=== PATIENT | male | born 1985 | race Caucasian/White ===

== ENCOUNTER 2016-11-15 00:24 | Inpatient (IN) | payer SELFPAY ==
[~2016-11-15] VITALS: Ht 182.8 cm; Wt 196.3 kg
[2016-11-15] VITALS (8 sets, daily range): BP systolic 134–184; BP diastolic 62–89
[~2016-11-15 00:24] MED LIST: ALDACTONE25 MG PO; ALLEGRA-D 24 H1 EACH PO; ALLOPURINOL300 MG PO; AMOXICILLIN500 M2 PO; AMOXICILLIN500 MG PO; AMOXIL500 MG PO; AVPAK AZITHROM250 M1 PO; BP MED; CIPRO500 MG PO; CLARITIN10 MG PO; FLAGYL500 MG PO; FLONASE ALLERG9.9 ML NS; FLONASE0.05 MG/AC NS; HYDROCODONE BIT1 T11 PO; HYDRODIURIL25 MG PO; INDOCIN25 MG PO; INDOCIN50 MG PO; INDOMETHACIN50 MG PO; LISINOPRIL10 MG PO; LISINOPRIL20 MG PO; LISINOPRIL40 MG PO; LOMOTIL 0.025 M1 TAB PO; LOPRESSOR25 MG PO; LOPRESSOR50 MG PO; MUCINEX1200 M1 PO; NAPROSYN500 MG PO; NORCO 5-325 TA1 EACH PO; OMNICEF300 MG PO; PREDNISONE10 MG PO; PROVENTIL0.09 MG/A1 INH; ULTRAM50 MG PO; VIBRAMYCIN100 MG PO; VICODIN 5/500 505 MG PO; VICODIN ES 7501 TAB PO; ZITHROMAX Z PA250 MG PO; ZITHROMAX250 MG PO; ZOFRAN ODT8 MG PO; ZYLOPRIM100 MG PO; ZYRTEC10 M3 PO; ZYRTEC10 MG PO
[2016-11-15 00:44] LABS: BASO # 0.1 10*3/uL (0.0-0.1); BASO % 0.3 % (0.0-1.0); EOS # 0.4 10*3/uL (0.0-0.4); EOS % 2.9 % (1.0-4.0); HEMATOCRIT 36.8 % (42.0-52.0); HEMOGLOBIN 11.9 g/dl (14.0-18.0); IG # 0.2 10*3/uL (0.0-0.1); LYMPH # 2.9 10*3/uL (1.3-4.4); LYMPH % 19.6 % (27.0-41.0); MEAN CORPUSCULAR HGB 28.1 pg (27.0-31.0); MEAN CORPUSCULAR HGB CONC 32.3 g/dl (33.0-37.0); MONO # 1.1 10*3/uL (0.1-1.0); MONO % 7.6 % (3.0-9.0); NEUT # 10.3 10*3/uL (2.3-7.9); NEUT % 68.5 % (47.0-73.0); PLATELET COUNT AUTOMATED 186 10*3/uL (130-400); RED BLOOD COUNT 4.23 10*6/uL (4.50-5.90); RED CELL DISTRI WIDTH 15.3 % (0-14.5)
[2016-11-15 00:53] LABS: INTERNATIONAL NORM RATIO 0.9 (2.0-3.5)
[2016-11-15 01:08] LABS: ALBUMIN 2.9 gm/dl (3.1-4.5); ALKALINE PHOSPHATASE 137 U/L (45-117); BILIRUBIN, TOTAL 0.4 mg/dl (0.2-1.0); BUN 49 mg/dl (7-24); CARBON DIOXIDE 22 mmol/L (21-32); CHLORIDE 111 mmol/L (98-107); EST GLOM FILT AFRICAN AMERICAN 46 ml/min; GLUCOSE 110 mg/dL (65-99); MAGNESIUM 1.3 mg/dL (1.5-2.1); POTASSIUM 4.8 mmol/L (3.5-5.1); SGOT/AST 38 IU/L (3-35); SGPT/ALT 78 U/L (12-78); SODIUM 142 mmol/L (136-145); TOTAL PROTEIN 7.3 gm/dL (6.4-8.2)
[2016-11-15 01:09] LABS: TROPONIN I < 0.015 ng/ml (<0.045)
[2016-11-15 06:43] LABS: CKMB 2.5 ng/ml (0.5-3.6); CPK 207 U/L (39-308)
[2016-11-15 06:45] LABS: TROPONIN I < 0.015 ng/ml (<0.045)
[2016-11-15 06:46] LABS: BASO % 0.2 % (0.0-1.0); EOS # 0.2 10*3/uL (0.0-0.4); EOS % 1.6 % (1.0-4.0); HEMATOCRIT 32.7 % (42.0-52.0); HEMOGLOBIN 10.5 g/dl (14.0-18.0); IG # 0.1 10*3/uL (0.0-0.1); LYMPH # 2.2 10*3/uL (1.3-4.4); LYMPH % 15.4 % (27.0-41.0); MEAN CELL VOLUME 87.4 fl (80.0-94.0); MEAN CORPUSCULAR HGB 28.1 pg (27.0-31.0); MEAN CORPUSCULAR HGB CONC 32.1 g/dl (33.0-37.0); MEAN PLATELET VOLUME 12.9 fl (9.6-12.3); MONO % 6.9 % (3.0-9.0); NEUT # 10.6 10*3/uL (2.3-7.9); PLATELET COUNT AUTOMATED 162 10*3/uL (130-400); RED BLOOD COUNT 3.74 10*6/uL (4.50-5.90); RED CELL DISTRI WIDTH 15.3 % (0-14.5); WHITE BLOOD COUNT 14.1 10*3/uL (4.8-10.8)
[2016-11-15 07:05] LABS: INTERNATIONAL NORM RATIO 0.9 (2.0-3.5)
[2016-11-15 07:06] LABS: ALBUMIN 2.7 gm/dl (3.1-4.5); MAGNESIUM 1.6 mg/dL (1.5-2.1); POTASSIUM 5.2 mmol/L (3.5-5.1)
[2016-11-15 07:13] LABS: BILIRUBIN, TOTAL 0.4 mg/dl (0.2-1.0); FREE T4 0.9 ng/dl (0.76-1.46); PHOSPHOROUS 3.6 mg/dL (2.5-4.9); THYROID STIM HORMONE (HS) 1.46 uIU/ml (0.358-4.75); TOTAL PROTEIN 6.7 gm/dL (6.4-8.2)
[2016-11-15 07:20] LABS: HEMOGLOBIN A1c 6.3 % (4.8-5.6)
[2016-11-15 08:14] LABS: VITAMIN D, 25-HYDROXY 6.3 ng/mL (30-100)
[2016-11-15 08:15] LABS: FOLIC ACID 11.34 ng/mL (>5.38)
[2016-11-15 12:11] LABS: CPK 200 U/L (39-308)
[2016-11-15 12:12] LABS: TROPONIN I < 0.015 ng/ml (<0.045)
[2016-11-15] MEDS ORDERED: HYDR25T PO (15:31)
[2016-11-16] VITALS: BP 166/97
[2016-11-16 07:19] LABS: BASO % 0.1 % (0.0-1.0); HEMOGLOBIN 11.1 g/dl (14.0-18.0); IG # 0.3 10*3/uL (0.0-0.1); LYMPH # 0.8 10*3/uL (1.3-4.4); MEAN CELL VOLUME 88.4 fl (80.0-94.0); MEAN CORPUSCULAR HGB CONC 31.7 g/dl (33.0-37.0); MEAN PLATELET VOLUME 13.1 fl (9.6-12.3); MONO # 0.4 10*3/uL (0.1-1.0); MONO % 2.8 % (3.0-9.0); NEUT # 12.4 10*3/uL (2.3-7.9); PLATELET COUNT AUTOMATED 165 10*3/uL (130-400); RED BLOOD COUNT 3.96 10*6/uL (4.50-5.90); RED CELL DISTRI WIDTH 14.6 % (0-14.5); WHITE BLOOD COUNT 13.9 10*3/uL (4.8-10.8)
[2016-11-16 07:49] LABS: BUN 45 mg/dl (7-24); CARBON DIOXIDE 23 mmol/L (21-32); CHLORIDE 113 mmol/L (98-107); EST GLOM FILT AFRICAN AMERICAN > 60 ml/min; GLUCOSE 340 mg/dL (65-99); POTASSIUM 5.7 mmol/L (3.5-5.1); SODIUM 142 mmol/L (136-145)
[2016-11-16 08:00] VITALS: BP 169/85
[2016-11-16 12:00] VITALS: BP 162/87
[2016-11-16] MEDS ORDERED: LEVOFLOXACIN500 MG PO (14:10)
[2016-11-16] MEDS ORDERED: VENTOLIN H0.09 MG/AC INH (14:10)
[2016-11-16] MEDS ORDERED: VITAMIN D50000 UNIT PO (14:10)
[2016-11-16] MEDS ORDERED: PREDNISONE10 MG PO (14:10)
== END 2016-11-16 15:28 | disposition home or self-care (01) | DRG 871 ==
LOC: ED 00:24 → EDHOLD 01:29 → 5E 01:53
PROVIDERS: Emergency Medicine Emergency Medical Services; Internal Medicine; Student in an Organized Health Care Education/Training Program
DX: A41.9 Sepsis, unspecified organism (principal); J18.9 Pneumonia, unspecified organism; N17.0 Acute kidney failure with tubular necrosis; E87.8 Other disorders of electrolyte and fluid balance, not elsewhere classified; E46 Unspecified protein-calorie malnutrition; Z68.43 Body mass index [BMI] 50.0-59.9, adult; I10 Essential (primary) hypertension; F12.90 Cannabis use, unspecified, uncomplicated; F17.210 Nicotine dependence, cigarettes, uncomplicated; J20.9 Acute bronchitis, unspecified; E87.5 Hyperkalemia; M1A.9XX0 Chronic gout, unspecified, without tophus (tophi); E78.5 Hyperlipidemia, unspecified

== ENCOUNTER 2017-01-31 17:04 | Emergency (ER) | payer SELFPAY ==
[~2017-01-31] VITALS: Ht 182.8 cm; Wt 158.8 kg
[~2017-01-31 17:04] MED LIST changes: +HYDR25T PO; +LEVOFLOXACIN500 MG PO; +VENTOLIN H0.09 MG/AC INH; +VITAMIN D50000 UNIT PO
[2017-01-31] MEDS ORDERED: FLONASE ALLERG9.9 ML NS (17:39)
[2017-01-31] MEDS ORDERED: AUGMENTIN 875875 MG PO (17:39)
== END 2017-01-31 17:44 | disposition home or self-care (01) ==
LOC: ED 17:04
DX: J01.90 Acute sinusitis, unspecified (principal); F12.10 Cannabis abuse, uncomplicated; F17.200 Nicotine dependence, unspecified, uncomplicated

== ENCOUNTER → 2017-05-05 | Emergency (ER) | payer SELFPAY ==
[~2017-05-05] VITALS: Ht 182.8 cm; Wt 181.4 kg
[~2017-05-05] MED LIST changes: +AUGMENTIN 875875 MG PO; +PREDNISONE50 MG PO; +PROVENTIL HFA6.7 GM INH
== END ==
LOC: ED 07:44
DX: J20.9 Acute bronchitis, unspecified (principal); I10 Essential (primary) hypertension; Z79.899 Other long term (current) drug therapy; Z87.891 Personal history of nicotine dependence

== ENCOUNTER 2018-03-05 16:14 | Inpatient (IN) | payer SELFPAY ==
[~2018-03-05] VITALS: Ht 175.3 cm; Wt 200.3 kg
--- NOTE | ~2018-03-05 | EKG ---
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
--- NOTE | ~2018-03-05 | CON ---
[place], [place] REPORT OF CONSULTATION NAME: HEMA DAMICO UNIT #: [id number] ROOM: 515 DOCTOR: ALEENA DAUGHERTY MD BIRTHDATE: [birth year] DOS: 03/06/2018 REASON FOR CONSULTATION: Acute on chronic kidney disease. HISTORY OF PRESENT ILLNESS: The patient is a 32-year-old male. He has a history of morbid obesity, hypertension, gout, hyperlipidemia, questionable diabetes. The patient appears to have underlying chronic kidney disease as well. He apparently does not have insurance. He has been seen in our practice years ago, one time was told that he likely will develop worsening chronic kidney disease and what he described to me is what sounds like possibly renal artery stenosis. I am not clear of the details. He presented to the hospital due to complaints of diarrhea and blood in the stool. He was started on antibiotics after CAT scan showed questionable diverticulitis. There was some wall thickening of the colon as well. The patient has an elevated creatinine, elevated potassium on admission. He was started on fluids. He denies taking NSAIDs regularly. Denies fevers, chills or night sweats. He denies any dysuria or hematuria. History of baseline creatinine is not quite clear. I did note creatinine levels to be in the range of 2 even dating back a year ago. His creatinine on admission was 3.18, but it has improved. ALLERGIES: No known drug allergies. HOME MEDICATIONS: Include allopurinol, hydrochlorothiazide, lisinopril, metoprolol. PAST MEDICAL HISTORY: 1. Chronic kidney disease as stated above. 2. Gout. 3. Hypertension. 4. Hyperlipidemia. 5. Questionable diabetes. 6. Pneumonitis. 7. Vitamin D deficiency. 8. Obesity. FAMILY HISTORY: No reports of chronic kidney disease, otherwise noncontributory. SOCIAL HISTORY: He does drink alcohol. He has previous history of smoking. Does use marijuana. REVIEW OF SYSTEMS: As per HPI, otherwise, a 10-point review of systems was reviewed and was negative. PHYSICAL EXAMINATION: VITAL SIGNS: Temperature is afebrile, pulse 70, respiration 20, blood pressure 137/66. GENERAL: He is awake, alert, in no acute distress. HEENT: Shows no JVD. Sclerae are anicteric. Mucous membranes are moist. Pharynx is clear. [place], [place] REPORT OF CONSULTATION NAME: HEMA DAMICO UNIT #: [id number] ROOM: 515 DOCTOR: ALEENA DAUGHERTY MD BIRTHDATE: [birth year] NECK: Supple. Trachea is midline. There is no lymphadenopathy or thyromegaly. LUNGS: Diminished breath sounds with no wheezes, not using accessory muscles of respiration. HEART: S1, S2. No rub, thrill or gallop. ABDOMEN: Soft, nontender. There is no organomegaly or rigidity, rebound or guarding. There is no CVA tenderness. EXTREMITIES: Had trace edema. There is no lower extremity lymphadenopathy. Distal pulses are 2+. SKIN: Showed no overt rash. There is no petechia or purpura. Skin temperature is warm. NEUROLOGIC: He is awake, alert and following commands. Cranial nerves are intact. LABORATORY DATA: Hemoglobin 10.1, white count 7.6, platelets of 131. BUN 74, creatinine 2.6, glucose 284, sodium 142, potassium 6.1 earlier this morning, CO2 of 18, calcium 8.8, phosphorus 4.8, magnesium 2.0. ASSESSMENT AND PLAN: 1. Acute on chronic kidney disease. The patient's baseline creatinine seems to be somewhere in the range of 2. The etiology of acute kidney injury is likely related to prerenal factors. He likely has underlying chronic kidney disease related to questionable diabetes versus acute glomerulonephritis such as focal segmental glomerulosclerosis. 2. Questionable diverticulitis. 3. Elevated LFTs. 4. Hyperkalemia with metabolic acidosis, likely questionable RTA. 5. Likely diabetes mellitus. 6. Hypertension. 7. Anemia. PLAN: 1. Continue fluids for now. He is on a bicarbonate drip in view of the acidosis to hopefully help correct the potassium. 2. We will check labs again tonight to reassess his potassium. 3. Dose meds for current creatinine clearance. 4. We will check urinalysis and urine for protein creatinine ratio. He will need outpatient renal followup. Thank you for this consultation. We will follow with you. [place], [place] REPORT OF CONSULTATION NAME: HEMA DAMICO UNIT #: [id number] ROOM: 515 DOCTOR: ALEENA DAUGHERTY MD BIRTHDATE: [birth year] ALEENA DAUGHERTY MD CM:CONSTR:REPORT OF CONSULTATION 37 03/07/18 0235 interface
--- NOTE | ~2018-03-05 | EKG ---
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 Electronically Signed On 03-06-2018 6:30:21 PDT by Dot Dang MD CM:EKGRPT:ELECTROCARDIOGRAM REPORT [id number] MONIKA VERDUGO EPIPHANY DRAFT REPORT MOINKA VERDUGO
[2018-03-05 16:15] VITALS: BP 164/62
[2018-03-05 16:38] LABS: BASO % 0.3 % (0.0-1.0); EOS # 0.4 10*3/uL (0.0-0.4); EOS % 4.9 % (1.0-4.0); HEMATOCRIT 35.7 % (42.0-52.0); HEMOGLOBIN 11.6 g/dl (14.0-18.0); LYMPH # 1.5 10*3/uL (1.3-4.4); LYMPH % 19.9 % (27.0-41.0); MEAN CELL VOLUME 87.3 fl (80.0-94.0); MEAN CORPUSCULAR HGB 28.4 pg (27.0-31.0); MEAN CORPUSCULAR HGB CONC 32.5 g/dl (33.0-37.0); MEAN PLATELET VOLUME 14.2 fl (9.6-12.3); MONO # 0.6 10*3/uL (0.1-1.0); NEUT # 5.1 10*3/uL (2.3-7.9); PLATELET COUNT AUTOMATED 150 10*3/uL (130-400); RED BLOOD COUNT 4.09 10*6/uL (4.50-5.90); RED CELL DISTRI WIDTH 14.9 % (0-14.5); WHITE BLOOD COUNT 7.7 10*3/uL (4.8-10.8)
[2018-03-05 16:54] LABS: ALBUMIN 3.3 gm/dl (3.1-4.5); CREATININE 3.18 mg/dL (0.70-1.30); POTASSIUM 5.7 mmol/L (3.5-5.1); TOTAL PROTEIN 8.1 gm/dL (6.4-8.2)
[2018-03-05 17:15] VITALS: BP 164/62
[2018-03-05 18:15] VITALS: BP 164/64
[2018-03-05 19:20] VITALS: BP 162/60
[2018-03-05 20:00] VITALS: BP 142/64
[2018-03-05 20:30] VITALS: BP 142/64
[2018-03-06] VITALS: BP 139/53
[2018-03-06 06:49] LABS: BASO % 0.1 % (0.0-1.0); EOS # 0.4 10*3/uL (0.0-0.4); EOS % 4.8 % (1.0-4.0); HEMATOCRIT 31.6 % (42.0-52.0); HEMOGLOBIN 10.1 g/dl (14.0-18.0); LYMPH # 1.6 10*3/uL (1.3-4.4); LYMPH % 20.6 % (27.0-41.0); MEAN CELL VOLUME 88.3 fl (80.0-94.0); MEAN CORPUSCULAR HGB 28.2 pg (27.0-31.0); MEAN PLATELET VOLUME 14.2 fl (9.6-12.3); MONO # 0.6 10*3/uL (0.1-1.0); MONO % 8.2 % (3.0-9.0); NEUT # 4.9 10*3/uL (2.3-7.9); NEUT % 65.4 % (47.0-73.0); PLATELET COUNT AUTOMATED 131 10*3/uL (130-400); RED BLOOD COUNT 3.58 10*6/uL (4.50-5.90); RED CELL DISTRI WIDTH 14.9 % (0-14.5); WHITE BLOOD COUNT 7.6 10*3/uL (4.8-10.8)
[2018-03-06 07:06] LABS: ALBUMIN 2.9 gm/dl (3.1-4.5); CREATININE 2.63 mg/dL (0.70-1.30); PHOSPHOROUS 4.8 mg/dL (2.5-4.9)
[2018-03-06 07:12] LABS: THYROID STIM HORMONE (HS) 0.569 uIU/ml (0.358-4.75)
[2018-03-06 07:26] LABS: POTASSIUM 6.1 mmol/L (3.5-5.1)
[2018-03-06 08:00] VITALS: BP 144/58
[2018-03-06 12:00] VITALS: BP 132/90
[2018-03-06 16:00] VITALS: BP 137/66
[2018-03-06 20:00] VITALS: BP 160/86; BP 169/87
[2018-03-06 21:15] LABS: CREATININE 2.49 mg/dL (0.70-1.30)
[2018-03-07] VITALS: BP 133/75
[2018-03-07 06:46] LABS: ALBUMIN 2.9 gm/dl (3.1-4.5); CREATININE 2.3 mg/dL (0.70-1.30); PHOSPHOROUS 4.1 mg/dL (2.5-4.9)
[2018-03-07 07:59] VITALS: BP 146/58
[2018-03-07 16:00] VITALS: BP 135/69
[2018-03-07 16:11] LABS: BILIRUBIN NEGATIVE (NEGATIVE); BLOOD TRACE-LYSED (NEGATIVE); CLARITY CLEAR (CLEAR); COLOR YELLOW (YELLOW); GLUCOSE 3+ (NEGATIVE); KETONE NEGATIVE (NEGATIVE); LEUKO ESTERASE NEGATIVE (NEGATIVE); NITRITE NEGATIVE (NEGATIVE); UROBILINOGEN 0.2 E.U./dl (0.2-1.0)
[2018-03-07 16:19] LABS: URINE CREATININE RANDOM 38.8 mg/dL
[2018-03-07 16:23] LABS: RBC 0-2 rbc/hpf (0-2); WBC 0-2 wbc/hpf (0-5)
[2018-03-07 20:00] VITALS: BP 155/97
[2018-03-08] VITALS: BP 148/75
[2018-03-08 05:54] LABS: BASO % 0.3 % (0.0-1.0); EOS # 0.3 10*3/uL (0.0-0.4); HEMOGLOBIN 9.7 g/dl (14.0-18.0); LYMPH # 1.5 10*3/uL (1.3-4.4); LYMPH % 22.9 % (27.0-41.0); MEAN CELL VOLUME 86.5 fl (80.0-94.0); MEAN CORPUSCULAR HGB CONC 32.3 g/dl (33.0-37.0); MEAN PLATELET VOLUME 13.1 fl (9.6-12.3); MONO # 0.6 10*3/uL (0.1-1.0); MONO % 9.2 % (3.0-9.0); NEUT # 4.1 10*3/uL (2.3-7.9); NEUT % 62.7 % (47.0-73.0); PLATELET COUNT AUTOMATED 118 10*3/uL (130-400); RED BLOOD COUNT 3.47 10*6/uL (4.50-5.90); RED CELL DISTRI WIDTH 14.6 % (0-14.5); WHITE BLOOD COUNT 6.5 10*3/uL (4.8-10.8)
[2018-03-08 06:12] LABS: ALBUMIN 2.7 gm/dl (3.1-4.5); PHOSPHOROUS 3.8 mg/dL (2.5-4.9); POTASSIUM 4.7 mmol/L (3.5-5.1)
[2018-03-08 08:00] VITALS: BP 140/71
[2018-03-08 12:00] VITALS: BP 140/74
[2018-03-08] MEDS ORDERED: LEVEMIR FL100 UNIT/1 SC (16:31)
[2018-03-08] MEDS ORDERED: CIPRO250 MG PO (16:31)
[2018-03-08] MEDS ORDERED: Humalog SQ (16:31)
[2018-03-08] MEDS ORDERED: FLAGYL500 MG PO (16:31)
[2018-03-08] MEDS ORDERED: ACCU-CHEK FAST1 EACH MC (16:31)
[2018-03-08] MEDS ORDERED: TEST STRIPS1 EACH MC (16:31)
[2018-03-08] MEDS ORDERED: PEN NEEDLE1 EAC2 MC (16:31)
[2018-03-08] MEDS ORDERED: ALCOHOL PADS1 EACH TD (16:31)
== END 2018-03-08 16:51 | disposition home or self-care (01) | DRG 377 ==
LOC: ED 16:14 → EDHOLD 18:43 → 5E 18:43
PROVIDERS: Internal Medicine; Internal Medicine Nephrology; Nurse Practitioner Family; Student in an Organized Health Care Education/Training Program
DX: K57.31 Diverticulosis of large intestine without perforation or abscess with bleeding (principal); N17.0 Acute kidney failure with tubular necrosis; E87.2 Acidosis; Z68.44 Body mass index [BMI] 60.0-69.9, adult; K52.9 Noninfective gastroenteritis and colitis, unspecified; E87.5 Hyperkalemia; K76.0 Fatty (change of) liver, not elsewhere classified; E66.01 Morbid (severe) obesity due to excess calories; R00.0 Tachycardia, unspecified; D64.9 Anemia, unspecified; D72.810 Lymphocytopenia; R74.0 Nonspecific elevation of levels of transaminase and lactic acid dehydrogenase [LDH]; M1A.9XX0 Chronic gout, unspecified, without tophus (tophi); F12.10 Cannabis abuse, uncomplicated; N18.3 Chronic kidney disease, stage 3 (moderate); E78.1 Pure hyperglyceridemia; E55.9 Vitamin D deficiency, unspecified; R74.8 Abnormal levels of other serum enzymes; E87.8 Other disorders of electrolyte and fluid balance, not elsewhere classified; I12.9 Hypertensive chronic kidney disease with stage 1 through stage 4 chronic kidney disease, or unspecified chronic kidney disease; E11.65 Type 2 diabetes mellitus with hyperglycemia; E78.5 Hyperlipidemia, unspecified; E11.22 Type 2 diabetes mellitus with diabetic chronic kidney disease; K21.9 Gastro-esophageal reflux disease without esophagitis; Z79.899 Other long term (current) drug therapy; Z87.01 Personal history of pneumonia (recurrent); Z87.440 Personal history of urinary (tract) infections; Z87.891 Personal history of nicotine dependence; Z81.8 Family history of other mental and behavioral disorders

== ENCOUNTER 2018-05-04 18:24 | Emergency (ER) | payer SELFPAY ==
[~2018-05-04 18:24] MED LIST changes: +ACCU-CHEK FAST1 EACH MC; +ALCOHOL PADS1 EACH TD; +CIPRO250 MG PO; +Humalog SQ; +LEVEMIR FL100 UNIT/1 SC; +PEN NEEDLE1 EAC2 MC; +TEST STRIPS1 EACH MC
[2018-05-04] MEDS ORDERED: AMOXICILLIN500 M2 PO (20:19)
[2018-05-04] MEDS ORDERED: TESSALON PERLE100 M1 PO (20:19)
== END 2018-05-04 20:35 | disposition home or self-care (01) ==
LOC: ED 18:24
DX: J20.9 Acute bronchitis, unspecified (principal); Z79.899 Other long term (current) drug therapy; Z87.891 Personal history of nicotine dependence

== ENCOUNTER → 2018-08-02 | Outpatient (CLI) | payer SELFPAY ==
[~2018-08-02] MED LIST changes: +TESSALON PERLE100 M1 PO
[2018-08-02 13:34] LABS: BASO % 0.3 % (0.0-1.0); EOS # 0.4 10*3/uL (0.0-0.4); EOS % 4.6 % (1.0-4.0); HEMATOCRIT 33.6 % (42.0-52.0); HEMOGLOBIN 10.7 g/dl (14.0-18.0); LYMPH # 1.7 10*3/uL (1.3-4.4); LYMPH % 22.4 % (27.0-41.0); MEAN CELL VOLUME 84.4 fl (80.0-94.0); MEAN CORPUSCULAR HGB 26.9 pg (27.0-31.0); MEAN CORPUSCULAR HGB CONC 31.8 g/dl (33.0-37.0); MEAN PLATELET VOLUME 12.7 fl (9.6-12.3); MONO # 0.6 10*3/uL (0.1-1.0); MONO % 7.4 % (3.0-9.0); NEUT # 4.9 10*3/uL (2.3-7.9); NEUT % 64.2 % (47.0-73.0); PLATELET COUNT AUTOMATED 137 10*3/uL (130-400); RED BLOOD COUNT 3.98 10*6/uL (4.50-5.90); RED CELL DISTRI WIDTH 14.6 % (0-14.5); WHITE BLOOD COUNT 7.6 10*3/uL (4.8-10.8)
[2018-08-02 14:03] LABS: CREATININE 2.23 mg/dL (0.70-1.30); POTASSIUM 5.5 mmol/L (3.5-5.1)
== END | disposition home or self-care (01) ==
LOC: LAB 13:09
PROVIDERS: Internal Medicine
DX: E11.9 Type 2 diabetes mellitus without complications (principal)

== ENCOUNTER → 2018-10-18 | Outpatient (CLI) | payer SELFPAY ==
[~2018-10-18] MED LIST changes: +FLONASE ALLERG9.9 ML NAS; +MEDROL DOSEPAK4 MG PO; +MUCINEX ER600 MG PO; +TYLENOL325 M1 PO
--- NOTE | ~2018-10-18 | EKG ---
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
== END ==
LOC: RESCLI 09:04
DX: M1A.09X0 Idiopathic chronic gout, multiple sites, without tophus (tophi) (principal); K21.9 Gastro-esophageal reflux disease without esophagitis; R00.2 Palpitations; I12.9 Hypertensive chronic kidney disease with stage 1 through stage 4 chronic kidney disease, or unspecified chronic kidney disease; E11.22 Type 2 diabetes mellitus with diabetic chronic kidney disease; N18.3 Chronic kidney disease, stage 3 (moderate); E66.01 Morbid (severe) obesity due to excess calories; E55.9 Vitamin D deficiency, unspecified

== ENCOUNTER 2018-12-09 17:07 | Emergency (ER) | payer SELFPAY ==
[~2018-12-09] VITALS: Ht 182.8 cm; Wt 181.4 kg
[~2018-12-09 17:07] MED LIST changes: -FLONASE ALLERG9.9 ML NAS; -MEDROL DOSEPAK4 MG PO; -MUCINEX ER600 MG PO; -TYLENOL325 M1 PO
[2018-12-09] MEDS ORDERED: FLONASE ALLERG9.9 ML NAS (17:46)
[2018-12-13] MEDS ORDERED: ZITHROMAX250 MG PO (10:08)
[2018-12-13] MEDS ORDERED: PREDNISONE10 MG PO (10:08)
[2018-12-13] MEDS ORDERED: MUCINEX ER600 MG PO (10:08)
[2019-01-15] MEDS ORDERED: MEDROL DOSEPAK4 MG PO (13:58)
[2019-01-15] MEDS ORDERED: TYLENOL325 M1 PO (14:03)
== END 2018-12-09 18:04 | disposition home or self-care (01) ==
LOC: ED 17:07
DX: J30.9 Allergic rhinitis, unspecified (principal); E66.01 Morbid (severe) obesity due to excess calories; I12.9 Hypertensive chronic kidney disease with stage 1 through stage 4 chronic kidney disease, or unspecified chronic kidney disease; N18.3 Chronic kidney disease, stage 3 (moderate); E78.1 Pure hyperglyceridemia; Z79.2 Long term (current) use of antibiotics; Z79.899 Other long term (current) drug therapy; Z79.4 Long term (current) use of insulin; Z87.891 Personal history of nicotine dependence

== ENCOUNTER → 2018-12-22 | Outpatient (CLI) | payer SELFPAY ==
[~2018-12-22] MED LIST changes: +FLONASE ALLERG9.9 ML NAS; +MEDROL DOSEPAK4 MG PO; +MUCINEX ER600 MG PO; +TYLENOL325 M1 PO
[2018-12-22 14:40] LABS: HEMOGLOBIN 10.1 g/dl (14.0-18.0); MEAN CORPUSCULAR HGB 26.9 pg (27.0-31.0); MEAN CORPUSCULAR HGB CONC 30.6 g/dl (33.0-37.0); MEAN PLATELET VOLUME 12.5 fl (9.6-12.3); PLATELET COUNT AUTOMATED 168 10*3/uL (130-400); RED BLOOD COUNT 3.75 10*6/uL (4.50-5.90); WHITE BLOOD COUNT 14.2 10*3/uL (4.8-10.8)
[2018-12-22 15:10] LABS: ALBUMIN 2.3 gm/dl (3.1-4.5); CREATININE 2.92 mg/dL (0.70-1.30); PLATELET SUFFICIENCY NORMAL (NORMAL); POTASSIUM 5.3 mmol/L (3.5-5.1); TOTAL CELLS COUNTED 100 #CELLS; TOTAL PROTEIN 6.1 gm/dL (6.4-8.2)
== END | disposition home or self-care (01) ==
LOC: RESCLI 07:22
PROVIDERS: Student in an Organized Health Care Education/Training Program
DX: K21.9 Gastro-esophageal reflux disease without esophagitis (principal); M79.672 Pain in left foot; M1A.09X0 Idiopathic chronic gout, multiple sites, without tophus (tophi); I12.9 Hypertensive chronic kidney disease with stage 1 through stage 4 chronic kidney disease, or unspecified chronic kidney disease; E11.22 Type 2 diabetes mellitus with diabetic chronic kidney disease; N18.3 Chronic kidney disease, stage 3 (moderate); E66.01 Morbid (severe) obesity due to excess calories; E55.9 Vitamin D deficiency, unspecified; R00.2 Palpitations; R60.0 Localized edema; Z79.4 Long term (current) use of insulin; Z79.899 Other long term (current) drug therapy; Z88.8 Allergy status to other drugs, medicaments and biological substances

== ENCOUNTER → 2019-04-18 | Outpatient (CLI) | payer MEDICAID ==
[~2019-04-18] MED LIST changes: +ALLOPURINOL100 MG PO; +AMLODIPINE BESYL5 MG PO; +LISINOPRIL5 MG PO; +NORVASC10 MG PO; +OMEPRAZOLE MAGN20 MG PO; +PROAIR HFA8.5 GM INH
[2019-04-18 10:01] LABS: HEMATOCRIT 32.5 % (42.0-52.0); HEMOGLOBIN 10.2 g/dl (14.0-18.0); MEAN CELL VOLUME 86.9 fl (80.0-94.0); MEAN CORPUSCULAR HGB 27.3 pg (27.0-31.0); MEAN CORPUSCULAR HGB CONC 31.4 g/dl (33.0-37.0); MEAN PLATELET VOLUME 12.3 fl (9.6-12.3); RED BLOOD COUNT 3.74 10*6/uL (4.50-5.90); RED CELL DISTRI WIDTH 15.5 % (0-14.5); WHITE BLOOD COUNT 8.9 10*3/uL (4.8-10.8)
[2019-04-18 10:30] LABS: ALBUMIN 2.6 gm/dl (3.1-4.5); CREATININE 3.38 mg/dL (0.70-1.30); POTASSIUM 5.8 mmol/L (3.5-5.1); TOTAL PROTEIN 6.7 gm/dL (6.4-8.2)
== END | disposition home or self-care (01) ==
LOC: LAB 09:44
PROVIDERS: Internal Medicine
DX: E55.9 Vitamin D deficiency, unspecified (principal); Z79.899 Other long term (current) drug therapy

== ENCOUNTER 2019-04-19 11:35 | Inpatient (IN) | payer MEDICAID ==
[~2019-04-19] VITALS: Ht 180.3 cm; Wt 209.1 kg
[2019-04-19] VITALS (10 sets, daily range): BP systolic 162–196; BP diastolic 87–118
[~2019-04-19 11:35] MED LIST changes: -ALLOPURINOL100 MG PO; -AMLODIPINE BESYL5 MG PO; -LISINOPRIL5 MG PO; -NORVASC10 MG PO; -OMEPRAZOLE MAGN20 MG PO; -PROAIR HFA8.5 GM INH
[2019-04-19 14:50] LABS: BASO % 0.4 % (0.0-1.0); EOS # 0.3 10*3/uL (0.0-0.4); EOS % 3.8 % (1.0-4.0); HEMATOCRIT 30.4 % (42.0-52.0); HEMOGLOBIN 9.5 g/dl (14.0-18.0); LYMPH # 1.5 10*3/uL (1.3-4.4); LYMPH % 19.1 % (27.0-41.0); MEAN CELL VOLUME 87.9 fl (80.0-94.0); MEAN CORPUSCULAR HGB 27.5 pg (27.0-31.0); MEAN CORPUSCULAR HGB CONC 31.3 g/dl (33.0-37.0); MEAN PLATELET VOLUME 12.1 fl (9.6-12.3); MONO # 0.6 10*3/uL (0.1-1.0); MONO % 7.7 % (3.0-9.0); NEUT # 5.2 10*3/uL (2.3-7.9); NEUT % 67.7 % (47.0-73.0); PLATELET COUNT AUTOMATED 156 10*3/uL (130-400); RED BLOOD COUNT 3.46 10*6/uL (4.50-5.90); RED CELL DISTRI WIDTH 15.5 % (0-14.5); WHITE BLOOD COUNT 7.6 10*3/uL (4.8-10.8)
[2019-04-19 15:05] LABS: ALBUMIN 2.5 gm/dl (3.1-4.5); CREATININE 3.38 mg/dL (0.70-1.30); TOTAL PROTEIN 6.3 gm/dL (6.4-8.2)
[2019-04-19 15:13] LABS: POTASSIUM 7.1 mmol/L (3.5-5.1)
--- NOTE | 2019-04-19 15:14 | NUR ---
DR. HDZ NOTIFIED OF CRITICAL POTASSIUM OF 7.1. NO ORDERS AT THIS TIME.
--- NOTE | 2019-04-19 15:30 | NUR ---
A 33 yr old male, admitted to , under the services of ABELINO Oseguera DO with a diagnosis of Hypertension. Chief complaint is high blood pressure in Resident clinic today, sent to ER. Patient had his home doses of Metoprolol, Lisinopril and Amlodopine before he came to resident clinic. In ER he received oral Catapres and IV Hydralazine. Patient arrived via stretcher from ER. Monitor applied. Initial assessment completed. Vital signs taken and recorded. See assessment for past medical history, medications and allergies. Patient and/or family oriented to unit. [facility]. Clothing/patient valuable form completed. Patient was called to be admitted to telemetry but before he could be put into bed, the lab called with a critical K+ level >7. Patient claims he's had this before and he was supposed to follow up with Dr George as an outpatient but he lost his job and therefore his insurance, so he never did see Dr George outside of the hospital. Patient ambulated from the cart into the room. Gait steady. Patient is alert and oriented x 3. No voiced complaints of pain or shortness of breath. See all appropriate interventions. DENNYS DANIELS
--- NOTE | 2019-04-19 15:38 | NUR ---
UPON TRANSFER OF PT, CRITICAL POTASSIUM OF 7.1 WAS CALLED. PT MOVED TO ICU BED 5
[2019-04-19 16:34] LABS: BILIRUBIN NEGATIVE (NEGATIVE); BLOOD TRACE-INTACT (NEGATIVE); CLARITY CLEAR (CLEAR); COLOR YELLOW (YELLOW); GLUCOSE TRACE (NEGATIVE); KETONE NEGATIVE (NEGATIVE); LEUKO ESTERASE NEGATIVE (NEGATIVE); NITRITE NEGATIVE (NEGATIVE); UROBILINOGEN 0.2 E.U./dl (0.2-1.0)
[2019-04-19 16:42] LABS: BACTERIA 1+; WBC 21-30 wbc/hpf (0-5)
[2019-04-19 16:43] LABS: URINE CREATININE RANDOM 60.6 mg/dL
[2019-04-19 16:44] LABS: URINE CREATININE RANDOM 62.3 mg/dL
--- NOTE | 2019-04-19 17:05 | NUR ---
PT HAS RECEIVED DEXTROSE,INSULIN, CALCIUM GLUCONATE, AND KAYEXELATE FOR HYPERKALEMIA, ALONG WITH ONE LITER NORMAL SALINE INFUSING AT 999/HR.
--- NOTE | 2019-04-19 17:16 | NUR ---
[facility] ANSWERING SERVICE TOOK INFORMATION ON CONSULT.
[2019-04-19] MEDS ORDERED: OMEPRAZOLE MAGN20 MG PO (17:53)
[2019-04-19] MEDS ORDERED: PROAIR HFA8.5 GM INH (17:53)
[2019-04-19] MEDS ORDERED: ALLOPURINOL100 MG PO (17:54)
[2019-04-19] MEDS ORDERED: LISINOPRIL5 MG PO (17:54)
[2019-04-19] MEDS ORDERED: AMLODIPINE BESYL5 MG PO (17:55)
[2019-04-19 20:49] LABS: CREATININE 3.31 mg/dL (0.70-1.30)
[2019-04-19 20:52] LABS: POTASSIUM 5.4 mmol/L (3.5-5.1)
--- NOTE | 2019-04-19 22:17 | NUR ---
PATIENT BS LEVEL IS 75 AT THIS TIME, PATIENT DENIES FEELING DIZZY,SWEATY,OR ANY ADVERSE EFFECTS OF DECREASED BS. PATIENT WAS PROVIDED WITH 2 APPLE JUICES AND CRACKERS AND PEANUT BUTTER.RN WILL RECHECK
[2019-04-20] VITALS: BP 166/90
[2019-04-20 04:00] VITALS: BP 166/95
[2019-04-20 06:12] LABS: CREATININE 3.19 mg/dL (0.70-1.30); FREE T4 0.78 ng/dl (0.76-1.46); PHOSPHOROUS 4.6 mg/dL (2.5-4.9); POTASSIUM 5.4 mmol/L (3.5-5.1)
[2019-04-20 06:19] LABS: THYROID STIM HORMONE (HS) 3.33 uIU/ml (0.358-4.75)
[2019-04-20 07:14] LABS: BASO % 0.4 % (0.0-1.0); EOS # 0.4 10*3/uL (0.0-0.4); EOS % 4.8 % (1.0-4.0); HEMATOCRIT 29.1 % (42.0-52.0); HEMOGLOBIN 8.9 g/dl (14.0-18.0); LYMPH # 1.9 10*3/uL (1.3-4.4); LYMPH % 25.6 % (27.0-41.0); MEAN CELL VOLUME 88.2 fl (80.0-94.0); MEAN CORPUSCULAR HGB CONC 30.6 g/dl (33.0-37.0); MEAN PLATELET VOLUME 13.2 fl (9.6-12.3); MONO # 0.6 10*3/uL (0.1-1.0); MONO % 8.6 % (3.0-9.0); NEUT # 4.3 10*3/uL (2.3-7.9); NEUT % 59.4 % (47.0-73.0); PLATELET COUNT AUTOMATED 140 10*3/uL (130-400); RED CELL DISTRI WIDTH 15.8 % (0-14.5); WHITE BLOOD COUNT 7.2 10*3/uL (4.8-10.8)
[2019-04-20 07:16] LABS: ACT PARTIAL THROMBO TIME 25.9 SECONDS (20.0-32.1); INTERNATIONAL NORM RATIO 0.9 (2.0-3.5)
[2019-04-20 08:00] VITALS: BP 180/100
--- NOTE | 2019-04-20 08:25 | NUR ---
PT AAOX3. RESP EASY. MANUAL BP 180/100 AND 182/0 WITH DOPPLER. IV HYDRALAZINE GIVEN PER ORDER. AM PO MEDS ALSO GIVEN AT THIS TIME. LUNG NGUYỄN DIM. ABD. OBESE WITH ACTIVE BOWEL SOUNDS. 2+ LOWER EXT. EDEMA NOTED. PT USED URINAL FOR 600CC STRAW COLORED URINE. PT DENIES COMPLAINTS AT THIS TIME. WILL CONTINUE TO MONITOR PT.
[2019-04-20 08:35] LABS: VITAMIN D, 25-HYDROXY 10.1 ng/mL (30-100)
--- NOTE | 2019-04-20 09:00 | NUR ---
DR CHAUDHARI IN TO SEE PT. NEW ORDERS RECEIVED.
[2019-04-20 09:12] VITALS: BP 142/0
--- NOTE | 2019-04-20 09:13 | NUR ---
BP RECHECK AFTER IV HYDRALAZINE 142/0 WITH DOPPLER. PT DENIES COMPLAINTS AT THIS TIME.
--- NOTE | 2019-04-20 11:00 | NUR ---
RENAL ULTRASOUND COMPLETE. MELON PACKER IN TO SEE PT.
[2019-04-20 12:00] VITALS: BP 142/0
--- NOTE | 2019-04-20 12:21 | NUR ---
Special Effects Artist in to talk to patient. Patient states lives at home with his parents. There are 0 steps in the home. Physician: resident clinic Pharmacy: [facility] Home health services: none Patient's level of ADLs: INDEPENDENT Patient has working utilities: yes DME: none Follow-up physician's appointment after d/c: will be made by the hospitalist nurse director upon discharge Does patient want to access PORTAL?: no Discharge plan discussed with patient. He lives at home with his parents. He is independent in his ADLs and ambulation. Discussed home health care services and he denies any home needs at this time. When medically stable he will be discharged to home. His girlfriend, who is at the bedside, or his mother will provide transportation on discharge. GISELLE GUTIERREZ
--- NOTE | 2019-04-20 12:35 | NUR ---
SBP 142. ROUTINE PO APRESOLINE GIVEN PER ORDER. WILL CONTINUE TO MONITOR PT.
--- NOTE | 2019-04-20 12:42 | NUR ---
DR CANELA SET PT UP WITH A FOLLOW-UP APPT. WITH DR RODAS ON AT 12:30. PT AND PT'S FAMILY NOTIFIED.
[2019-04-20] MEDS ORDERED: NORVASC10 MG PO (14:00)
--- NOTE | 2019-04-20 14:02 | NUR ---
DR CHAUDHARI IN TO SEE PT. UPDATED HIM ON PT'S BP RESULTS. PT TO BE DISCHARGED AFTER DIETARY EDUCATES HIM ON A LOW POTASSIUM DIET.
--- NOTE | 2019-04-20 14:37 | NUR ---
Discharge instructions reviewed with patient/family. Patient receptive and verbalizes understanding. Follow-up care arranged. Written instructions given to patient/family. ALETHEA STEINER
--- NOTE | 2019-04-20 15:18 | NUR ---
Nutritional Support Services Note: Discussed with pt and pts low potassium diet. Diet copy given of high potassium foods to avoid. Pt has a good understanding of what he should avoid. Discussed proper portion sizes and weight loss technques and goals. Current wt 461#. Discussed healhty eating habits due to severe protein calorie malnutrition. Encouraged healthy eating. Encouraged follow up if needed. Vanessa Austin Rdn Ld
== END 2019-04-20 14:37 | disposition home or self-care (01) | DRG 469 ==
LOC: ED 11:35 → ICCU 14:30 → EDHOLD 14:30 → 5E 14:37 → ICCU 16:42
PROVIDERS: Emergency Medicine; Family Medicine; Internal Medicine; Student in an Organized Health Care Education/Training Program; ADMIT Internal Medicine
DX: N17.0 Acute kidney failure with tubular necrosis (principal); E43 Unspecified severe protein-calorie malnutrition; I16.1 Hypertensive emergency; Z68.44 Body mass index [BMI] 60.0-69.9, adult; E87.5 Hyperkalemia; N18.4 Chronic kidney disease, stage 4 (severe); E87.8 Other disorders of electrolyte and fluid balance, not elsewhere classified; D64.9 Anemia, unspecified; M1A.9XX0 Chronic gout, unspecified, without tophus (tophi); K76.0 Fatty (change of) liver, not elsewhere classified; K57.90 Diverticulosis of intestine, part unspecified, without perforation or abscess without bleeding; E66.01 Morbid (severe) obesity due to excess calories; E78.1 Pure hyperglyceridemia; E55.9 Vitamin D deficiency, unspecified; J30.2 Other seasonal allergic rhinitis; E11.65 Type 2 diabetes mellitus with hyperglycemia; E11.22 Type 2 diabetes mellitus with diabetic chronic kidney disease; I12.9 Hypertensive chronic kidney disease with stage 1 through stage 4 chronic kidney disease, or unspecified chronic kidney disease; Z79.4 Long term (current) use of insulin; Z79.899 Other long term (current) drug therapy

== ENCOUNTER → 2019-04-19 | Outpatient (CLI) | payer MEDICAID | END | disposition home or self-care (01) | LOC: RESCLI 00:55 | DX: I16.1 Hypertensive emergency (principal); I10 Essential (primary) hypertension; E11.9 Type 2 diabetes mellitus without complications; K21.9 Gastro-esophageal reflux disease without esophagitis ==

== ENCOUNTER → 2019-06-16 | Outpatient (CLI) | payer OTHER ==
[~2019-06-16] MED LIST changes: +ALLOPURINOL100 MG PO; +AMLODIPINE BESYL5 MG PO; +LISINOPRIL5 MG PO; +NORVASC10 MG PO; +OMEPRAZOLE MAGN20 MG PO; +PROAIR HFA8.5 GM INH
[2019-06-16 12:56] LABS: BASO % 0.4 % (0.0-1.0); EOS # 0.3 10*3/uL (0.0-0.4); EOS % 3.2 % (1.0-4.0); HEMATOCRIT 29.7 % (42.0-52.0); HEMOGLOBIN 9.2 g/dl (14.0-18.0); LYMPH # 1.5 10*3/uL (1.3-4.4); LYMPH % 18.1 % (27.0-41.0); MEAN CELL VOLUME 87.6 fl (80.0-94.0); MEAN CORPUSCULAR HGB 27.1 pg (27.0-31.0); MONO # 0.5 10*3/uL (0.1-1.0); MONO % 6.5 % (3.0-9.0); NEUT # 5.9 10*3/uL (2.3-7.9); NEUT % 70.2 % (47.0-73.0); PLATELET COUNT AUTOMATED 167 10*3/uL (130-400); RED BLOOD COUNT 3.39 10*6/uL (4.50-5.90); RED CELL DISTRI WIDTH 15.3 % (0-14.5); WHITE BLOOD COUNT 8.3 10*3/uL (4.8-10.8)
[2019-06-16 12:59] LABS: BILIRUBIN NEGATIVE (NEGATIVE); BLOOD TRACE-INTACT (NEGATIVE); CLARITY SL CLOUDY (CLEAR); COLOR YELLOW (YELLOW); GLUCOSE 1+ (NEGATIVE); KETONE NEGATIVE (NEGATIVE); LEUKO ESTERASE NEGATIVE (NEGATIVE); NITRITE NEGATIVE (NEGATIVE); UROBILINOGEN 0.2 E.U./dl (0.2-1.0)
[2019-06-16 13:05] LABS: ALBUMIN 2.4 gm/dl (3.1-4.5); ALKALINE PHOSPHATASE 111 U/L (45-117); BILIRUBIN, DIRECT < 0.1 mg/dL (0.0-0.2); BUN 61 mg/dl (7-24); CHLORIDE 116 mmol/L (98-107); CHOLESTEROL 206 mg/dL (<200); CREATININE 4.16 mg/dL (0.70-1.30); HDL CHOLESTEROL 47 mg/dl (40-60); LDL CHOLESTEROL 79 mg/dL (9-159); PHOSPHOROUS 5.4 mg/dL (2.5-4.9); POTASSIUM 5.1 mmol/L (3.5-5.1); SGOT/AST 16 IU/L (3-35); SGPT/ALT 21 U/L (12-78); SODIUM 145 mmol/L (136-145); TOTAL PROTEIN 6.6 gm/dL (6.4-8.2); TRIGLYCERIDES 401 mg/dl (<150); URIC ACID 5.2 mg/dL (3.5-7.2); VLDL CHOLESTEROL 80 mg/dL (6-40)
[2019-06-16 13:39] LABS: FERRITIN 92.6 ng/mL (22.0-322.0); VITAMIN D, 25-HYDROXY 11.5 ng/mL (30-100)
[2019-06-16 13:40] LABS: PTH INTACT 372.6 pg/mL (18.5-88.0)
[2019-06-16 13:48] LABS: BACTERIA 1+; RBC 0-2 rbc/hpf (0-2)
== END | disposition home or self-care (01) ==
LOC: LAB 11:52
PROVIDERS: Internal Medicine; Internal Medicine Nephrology
DX: M10.9 Gout, unspecified (principal); E11.22 Type 2 diabetes mellitus with diabetic chronic kidney disease; N18.4 Chronic kidney disease, stage 4 (severe); E00.9 Congenital iodine-deficiency syndrome, unspecified; Z79.4 Long term (current) use of insulin

== ENCOUNTER 2019-11-15 15:59 | Inpatient (IN) | payer OTHER ==
[~2019-11-15] VITALS: Ht 182.9 cm; Wt 190.7 kg
[2019-11-15 16:22] VITALS: BP 152/92
[2019-11-15 16:38] LABS: BASO % 0.2 % (0.0-1.0); EOS # 0.1 10*3/uL (0.0-0.4); EOS % 0.4 % (1.0-4.0); HEMATOCRIT 25.5 % (42.0-52.0); LYMPH % 8.3 % (27.0-41.0); MEAN CELL VOLUME 85.9 fl (80.0-94.0); MEAN CORPUSCULAR HGB 25.9 pg (27.0-31.0); MEAN CORPUSCULAR HGB CONC 30.2 g/dl (33.0-37.0); MEAN PLATELET VOLUME 11.5 fl (9.6-12.3); MONO # 0.9 10*3/uL (0.1-1.0); MONO % 7.8 % (3.0-9.0); NEUT # 9.7 10*3/uL (2.3-7.9); NEUT % 81.4 % (47.0-73.0); PLATELET COUNT AUTOMATED 269 10*3/uL (130-400); RED BLOOD COUNT 2.97 10*6/uL (4.50-5.90); RED CELL DISTRI WIDTH 15.7 % (0-14.5); WHITE BLOOD COUNT 11.9 10*3/uL (4.8-10.8)
[2019-11-15 16:48] LABS: INTERNATIONAL NORM RATIO 1.1 (2.0-3.5)
[2019-11-15 16:53] LABS: ALBUMIN 2.1 gm/dl (3.1-4.5); ALKALINE PHOSPHATASE 197 U/L (45-117); BUN 88 mg/dl (7-24); CHLORIDE 117 mmol/L (98-107); CREATININE 7.49 mg/dL (0.70-1.30); POTASSIUM 5.9 mmol/L (3.5-5.1); SGOT/AST 13 IU/L (3-35); SGPT/ALT 25 U/L (12-78); SODIUM 143 mmol/L (136-145); TOTAL PROTEIN 7.5 gm/dL (6.4-8.2)
[2019-11-15 16:54] LABS: TROPONIN I < 0.015 ng/ml (<0.045)
--- NOTE | 2019-11-15 17:45 | NUR ---
PATIENT PLACED ON BIPAP 06/02 VIA MEDIUM MASK. FIO2 INITIATED AT 100% DECREASED TO 50%. SPO2 94%, HR 91 RR 29. PATIENT ACHIEVING TIDAL VOLUMES IN THE RANGE OF 850-1000ML. PATIENT APPEARS TO BE TOLERATING WELL.
[2019-11-15 18:02] VITALS: BP 169/85
--- NOTE | 2019-11-15 19:24 | NUR ---
SECOND EKG PERFORMED. REVIEWED BY DR NAZARIO.
[2019-11-15 20:00] VITALS: BP 164/80
--- NOTE | 2019-11-15 20:00 | NUR ---
A 34, admitted to [facility], under the services of ABELINO Heart DO with a diagnosis of CHF, PNEUMONIA. Chief complaint is SHORTNESS OF BREATH. Patient arrived via ambulatory from ER. Monitor applied. Initial assessment completed. Vital signs taken and recorded. ABELINO HEART DO notified of admission to the unit. Orders received. See assessment for past medical history, medications and allergies. Patient and/or family oriented to unit. [facility]. Clothing/patient valuable form completed. RAPID COVID NEGATIVE. DRU CLARK
--- NOTE | 2019-11-15 20:24 | NUR ---
PER DR ANTONETTE NANCE TO PUT IN STAT ABG'S AND UA/UC
--- NOTE | 2019-11-15 20:31 | NUR ---
Consult called to Dr. Wallace, new order received for bumex 2mg @ 2100. and they will see patient in the morning.
[2019-11-15] MEDS ORDERED: LEVEMIR FL100 UNIT/1 SQ (20:41)
[2019-11-15] MEDS ORDERED: TERAZOSIN HCL2 M1 PO (20:42)
[2019-11-15] MEDS ORDERED: LASIX40 MG PO (20:42)
[2019-11-15 20:47] LABS: BILIRUBIN NEGATIVE (NEGATIVE); BLOOD 1+ (NEGATIVE); CLARITY SL CLOUDY (CLEAR); COLOR YELLOW (YELLOW); GLUCOSE NEGATIVE (NEGATIVE); KETONE NEGATIVE (NEGATIVE); NITRITE NEGATIVE (NEGATIVE); UROBILINOGEN 0.2 E.U./dl (0.2-1.0)
[2019-11-15 20:49] LABS: BACTERIA 1+; LEUKO ESTERASE TRACE (NEGATIVE)
--- NOTE | 2019-11-15 21:26 | NUR ---
MED REQ UPDATED.
[2019-11-15 22:03] LABS: ABG BASE EXCESS -12.3 mmol/L (-2.0-2.0)
[2019-11-15 22:06] LABS: ARTERIAL BLOOD GAS PH 7.188 (7.35-7.45)
--- NOTE | 2019-11-15 22:15 | NUR ---
Consult called to Dr. Mejia. Wants resident to put on renal consult. and for repiratory to continue to titrate oxygen down.
--- NOTE | 2019-11-15 22:15 | NUR ---
Call Dr. George's office for consult, awaiting call back.
[2019-11-16] VITALS (15 sets, daily range): BP systolic 120–170; BP diastolic 58–96
--- NOTE | 2019-11-16 00:22 | NUR ---
Patient having some generalized pain, and needed something to help him sleep. [place] and restoril given. Will monitor and reassess.
--- NOTE | 2019-11-16 02:40 | NUR ---
Patient still awakes easily, patient states he feels a little more relaxed. Wanting head of bed down slightly, stating he has pain in chest with it being too high. Patient states that he still has some shortness of breath while on the non-rebreather. Patient pulse ox 92-94% Monitoring on screen.
[2019-11-16 04:53] LABS: CREATININE 7.95 mg/dL (0.70-1.30)
[2019-11-16 04:55] LABS: POTASSIUM 6.7 mmol/L (3.5-5.1)
--- NOTE | 2019-11-16 04:56 | NUR ---
Received critical result of K 6.7, reported to Dr. Callahan. No new orders at this time, but get in touch with nephro.
[2019-11-16 04:59] LABS: THYROID STIM HORMONE (HS) 0.75 uIU/ml (0.358-4.75)
--- NOTE | 2019-11-16 05:00 | NUR ---
Left message with Dr. [place] group, await configurator back from oncall doctor.
--- NOTE | 2019-11-16 05:29 | NUR ---
Patient has complaint of rt side chest pain. States that the norco that was given prior was effective, Anoter norco given. Will monitor and reassess.
--- NOTE | 2019-11-16 06:02 | NUR ---
Another attempt to speak with dr from renal group, the answering service set out another page.
[2019-11-16 06:23] LABS: ACT PARTIAL THROMBO TIME 36.3 SECONDS (20.0-32.1); INTERNATIONAL NORM RATIO 1.1 (2.0-3.5)
[2019-11-16 06:38] LABS: HEMATOCRIT 26.7 % (42.0-52.0); MEAN CORPUSCULAR HGB 25.4 pg (27.0-31.0); MEAN CORPUSCULAR HGB CONC 28.5 g/dl (33.0-37.0); PLATELET COUNT AUTOMATED 322 10*3/uL (130-400); RED BLOOD COUNT 2.99 10*6/uL (4.50-5.90); WHITE BLOOD COUNT 14.7 10*3/uL (4.8-10.8)
[2019-11-16 06:40] LABS: MEAN CELL VOLUME 89.3 fl (80.0-94.0)
--- NOTE | 2019-11-16 06:54 | NUR ---
Patient working to breath, pulse ox 87% on 15L non-rebreather. Patient alert and talking, states having little chest pain. Notified Dr Mejia of patient change in breathing, new order to intubate.
--- NOTE | 2019-11-16 07:50 | NUR ---
PT ANXIOUS, RESPIRATORY RATE IN THE UPPER 30'S, POX 80% ON 15L NRB MASK. AWAITING ANESTHESIA FOR INTUBATION.
--- NOTE | 2019-11-16 08:00 | NUR ---
Infomed consent obtained from patient by Dr. WISE for elective intubation. Patient intubated with 8 Luxembourgish endotracheal tube orally X 1 attempts. Patient sedated with PER ANESTHESIA Respiratory therapy at bedside. Crash cart with emergency drugs available. Endotracheal tube inflated with 10cc's. Lungs auscultated for equality of breath sounds. Tube secured with Tube tamer at 24cm's. at level of LIP. Patient tolerated procedure WELL. Portable chest X-ray obtained and reviewed for tube placement. Patient connected to ventilator CMV mode, 550 tidal volume, 100 FIO2, 10 PEEP, and pressure support. ESME ROSALES
[2019-11-16 08:04] LABS: BASOPHILS 1 % (0-1); PLATELET SUFFICIENCY NORMAL (NORMAL); ROULEAUX MARKED; TOTAL CELLS COUNTED 100 #CELLS
[2019-11-16 08:05] LABS: POLYCHROMASIA SLIGHT
--- NOTE | 2019-11-16 08:30 | NUR ---
Indwelling catheter placed per policy #16. Pt sedated, tolerated well. Scant amount of cloudy hema obtained. Secured with cath secure.
--- NOTE | 2019-11-16 08:30 | NUR ---
OGT tube inserted and secured without difficulty. Patient sedated tolerated procedure well. Air bolus confirmed placement. xray for verification. CASIE WILL
--- NOTE | 2019-11-16 08:56 | NUR ---
CHART ACCESSED TO REVIEW RAPID COVID TESTING FOR CLIFFORD THOMAS. NEEDED TO ACCESS TO FILL OUT RAPID COVID FORM.
[2019-11-16 09:12] LABS: HEMATOCRIT 25.7 % (42.0-52.0)
[2019-11-16 09:24] LABS: CREATININE 8.14 mg/dL (0.70-1.30)
[2019-11-16 09:29] LABS: POTASSIUM 7.9 mmol/L (3.5-5.1)
[2019-11-16 10:22] LABS: CREATININE 8.39 mg/dL (0.70-1.30)
--- NOTE | 2019-11-16 10:30 | NUR ---
case management unable to speak with patient at this time due to being on a ventilator. discharge plans undecided at this time. per chart patient lives at home with his family, will contact family and discuss discharge plans at a later time
--- NOTE | 2019-11-16 11:00 | NUR ---
PATIENT NOT AVAILABLE FOR STAT ECHO. NURSING PERSONNEL WORKING WITH HIM.
[2019-11-16 11:27] LABS: ABG BASE EXCESS -13.1 mmol/L (-2.0-2.0)
--- NOTE | 2019-11-16 11:30 | NUR ---
CALLED INTO PATIENTS ROOM SPO2 IN THE LOW TO MID 70s. DR WISE CALLED PEEP INCREASED TO +16. PATIENT TO BE MOVED TO NEW ROOM TO BE PRONED AND RECEIVE DIALYSIS.
[2019-11-16 11:32] LABS: ARTERIAL BLOOD GAS PH 7.073 (7.35-7.45)
--- NOTE | 2019-11-16 12:45 | NUR ---
PATIENT PRONED, SWIM POSITION WITH HEAD TO THE RIGHT, RIGHT ARM UP, LEFT DOWN. PRONING PILLOW USED, TUBED SECURED WITH TUBE TAMER. JOSE ETL DATA ARCHITECT PRESENT AND MAINTAINED TUBE DURING REPOSITIONING. PATIENT SATURATIONS APPEAR TO BE IMPROVING POST PRONING.
--- NOTE | 2019-11-16 12:45 | NUR ---
PT PRONED AT THIS TIME. TOLERATED WELL. POX UP TO 95% ON 100% FIO2 AT THIS TIME. NSR RATE 70'S. SBP 15OS WITH A MAP 94.
--- NOTE | 2019-11-16 12:45 | NUR ---
NIMBEX 31MG IV GIVEN SO PT COULD BE PRONED.
--- NOTE | 2019-11-16 13:13 | NUR ---
DIALYSIS NURSE HERE AND DIALYSIS STARTED.
--- NOTE | 2019-11-16 13:48 | NUR ---
MARIAMA AT DR DELAROSA OFFICE MADE AWARE OF NEW CONSULT ORDER.
--- NOTE | 2019-11-16 14:11 | NUR ---
PER DR SCHRADER HOLD ECHO AND COMPLETE TOMORROW 11/17/19.
--- NOTE | 2019-11-16 14:39 | NUR ---
DR LAZARO RETURNED CALL AND MADE AWARE OF NEW CONSULT ORDER. NO NEW ORDERS AT THIS TIME.
--- NOTE | 2019-11-16 14:41 | NUR ---
DR SCHRADER IN TO SEE PT.
[2019-11-16 15:27] LABS: ABG BASE EXCESS -6.3 mmol/L (-2.0-2.0); ARTERIAL BLOOD GAS PH 7.217 (7.35-7.45)
[2019-11-16 15:38] LABS: CREATININE 6.02 mg/dL (0.70-1.30)
--- NOTE | 2019-11-16 15:59 | NUR ---
PTS HEAD REPOSITIONED AT THIS TIME DUE TO BEING PRONE. ASSIST OF RESPIRATORY THERAPIST AND ANESTHESIA.
--- NOTE | 2019-11-16 16:05 | NUR ---
ABG RESULTS CALLED TO DR WISE. ORDER GIVEN TO DECREASE FIO2 TO 80%, ABGs IN 2 HOURS, DR WISE REQUEST TO BE CALLED WITH RESULTS FROM PATIENTS ROOM VIA IPAD.
--- NOTE | 2019-11-16 16:14 | NUR ---
FIO2 DECREASED TO 80%.
[2019-11-16 17:31] LABS: HEMATOCRIT 24.4 % (42.0-52.0); MEAN CELL VOLUME 87.8 fl (80.0-94.0); MEAN CORPUSCULAR HGB 25.5 pg (27.0-31.0); MEAN CORPUSCULAR HGB CONC 29.1 g/dl (33.0-37.0); MEAN PLATELET VOLUME 11.9 fl (9.6-12.3); NUCLEATED RED BLOOD CELL 0.2 % (0.0-0.0); PLATELET COUNT AUTOMATED 294 10*3/uL (130-400); RED BLOOD COUNT 2.78 10*6/uL (4.50-5.90); RED CELL DISTRI WIDTH 15.7 % (0-14.5); WHITE BLOOD COUNT 12.4 10*3/uL (4.8-10.8)
[2019-11-16 17:38] LABS: CREATININE 6.22 mg/dL (0.70-1.30); POTASSIUM 4.9 mmol/L (3.5-5.1)
[2019-11-16 17:53] LABS: PLATELET SUFFICIENCY NORMAL (NORMAL); TOTAL CELLS COUNTED 100 #CELLS
--- NOTE | 2019-11-16 18:15 | NUR ---
FIO2 DECREASED TO 70% PER DR WISE'S ORDER. PATIENT IS TO BE DECREASED TO 60% 15 MINUTES LATER, THEN ABGS 15 POST THE DECREASE TO 60%.
--- NOTE | 2019-11-16 18:26 | NUR ---
FIO2 DECREASED T0 60%.
--- NOTE | 2019-11-16 18:52 | NUR ---
PT'S HEAD REPOSITIONED AT THIS TIME DUE TO BEING PRONED IN THE BED.
[2019-11-16 19:02] LABS: ARTERIAL BLOOD GAS PH 7.186 (7.35-7.45)
--- NOTE | 2019-11-16 19:15 | NUR ---
DR. WISE CALLED WITH ABG RESULTS. CHANGED VT TO 600ML PER DR. WSIE'S ORDER.
[2019-11-16 21:27] LABS: ABG BASE EXCESS -7.8 mmol/L (-2.0-2.0); ARTERIAL BLOOD GAS PH 7.231 (7.35-7.45)
--- NOTE | 2019-11-16 21:30 | NUR ---
Patient arousing from sedation while trying to swim patient in prone postion. Nimbex given. Effective immediately. Heart rates remains in the 70's, bp 130/60's. Patient resting on vent.
--- NOTE | 2019-11-16 23:35 | NUR ---
Patient's arms and head swam with assistance of nursing without difficulty. ETT secure. SPO2: 99%
[2019-11-17] VITALS (27 sets, daily range): BP systolic 122–176; BP diastolic 52–86
--- NOTE | 2019-11-17 01:23 | NUR ---
Nimbex given prior to swimming patient to right side. Effective immediately.
--- NOTE | 2019-11-17 01:50 | NUR ---
Patient swam at this time with assistance of nursing staff. ETT secure. Patient suctioned for large amounts of thick cream secretions including a moderate sized mucous plug. SPO2: 100%. Will continue to monitor.
--- NOTE | 2019-11-17 03:45 | NUR ---
Patient began to arous from sedation, versed given. Effective immediately.
--- NOTE | 2019-11-17 03:50 | NUR ---
Pt sxn'd for a large amount of thick cream secretions. Small mucous plug also sxn'd. ETT patent and secure. No complications. SPO2: 100%
--- NOTE | 2019-11-17 04:45 | NUR ---
Patient was unproned with no problems. Tolerated well.
[2019-11-17 06:02] LABS: ALBUMIN 1.9 gm/dl (3.1-4.5); CREATININE 7.73 mg/dL (0.70-1.30); POTASSIUM 5.4 mmol/L (3.5-5.1); TOTAL PROTEIN 6.7 gm/dL (6.4-8.2)
--- NOTE | 2019-11-17 06:26 | NUR ---
Patients pulse ox has dropped since being unproned. Was around 92%, now is 86-87%. Respiratory on floor and made aware.
[2019-11-17 06:33] LABS: HEMATOCRIT 22.4 % (42.0-52.0); MEAN CELL VOLUME 86.2 fl (80.0-94.0); MEAN CORPUSCULAR HGB 25.8 pg (27.0-31.0); MEAN CORPUSCULAR HGB CONC 29.9 g/dl (33.0-37.0); MEAN PLATELET VOLUME 12.3 fl (9.6-12.3); PLATELET COUNT AUTOMATED 275 10*3/uL (130-400); RED CELL DISTRI WIDTH 15.6 % (0-14.5); WHITE BLOOD COUNT 10.8 10*3/uL (4.8-10.8)
--- NOTE | 2019-11-17 06:44 | NUR ---
Patient suctioned multiple times, large thick secretions. Patients pulse ox is now 90-91%
[2019-11-17 06:53] LABS: ACT PARTIAL THROMBO TIME 35.6 SECONDS (20.0-32.1); PLATELET SUFFICIENCY NORMAL (NORMAL); TOTAL CELLS COUNTED 100 #CELLS
[2019-11-17 06:54] LABS: POLYCHROMASIA SLIGHT
--- NOTE | 2019-11-17 07:07 | NUR ---
06:30 PT DESATURATING TO SPO2 OF 85% FIO2 AT 60% PT PLACED ON 100% O2 FOR SX. LAVAGED AND SX'D FOR SMALL CREAM SECRETIONS. BBSs EQUAL, CLEAR AND DIMINISHED. NO CHANGE IN SPO2. FIO2 TITRATED TO 75% TO OBTAIN SPO2 OF 92%. DR WISE CALLED: LEFT VM. RN AWARE.
--- NOTE | 2019-11-17 07:15 | NUR ---
Spoke with Dr. Estrada in regards to Hgb of 6.7. Dr. Estrada is going to put in orders at this time.
[2019-11-17 08:08] LABS: ARTERIAL BLOOD GAS PH 7.212 (7.35-7.45)
[2019-11-17 08:09] LABS: ABG BASE EXCESS -8.5 mmol/L (-2.0-2.0)
--- NOTE | 2019-11-17 08:15 | NUR ---
DIALYSIS NURSE HERE AT THIS TIME, WILL BEGIN DIALYSIS SHORTLY
--- NOTE | 2019-11-17 09:05 | NUR ---
VERSED GIVEN AT THIS TIME, PATIENT RESTLESS, TURNING HEAD IAROUND AND PULLING AT WRIST RESTRAINTS. PATIENT ALSO BREATHING OVER VENTILATOR SET RATE. PATIENT HAS ALSO DROPPED O2 SATURATION TO 82% RESPIRATORY IN ROOM, MAKING CHANGES TO VENTILATOR SETTINGS. RN IN ROOM
--- NOTE | 2019-11-17 09:15 | NUR ---
PRN NIMBEX GIVEN AT THIS TIME. PATIENT STILL BREATHING OVER VENTILATOR , PULSO OXIMETRY STILL REMAINS LOW 85-88% ON 100% FIO2. RESPIRATORY IN ROOM, STILL MAKING CHANGES TO THE VENTILATOR SETTING. RN IN ROOM
--- NOTE | 2019-11-17 09:20 | NUR ---
08:50 PT ON DIALYSIS. SPO2 DROPPED TO 82% POST SX ( PT GIVEN 100% O2 DURING SX). FIO2 TITRATED TO 100% TO OBTAIN SPO2 OF 92% DR BILLIE PAIZ. RN AWARE.
--- NOTE | 2019-11-17 09:30 | NUR ---
PULSE OXIMETRY IMPROVED TO 92-93% AT THIS TIME, FIO2 WAS INCREASED TO 100%
--- NOTE | 2019-11-17 09:37 | NUR ---
BLOOD VERIFED WITH LISSY VICTOR RN IN THE COMPUTER, DIALYSIS NURSE IN WITH PATIENT, GOING TO BE GIVING THE PATIENT THE BLOOD WITH THE DIALYSIS TREATMENT. BLOOD VERIFIED WITH DIALYSIS NURSE WELL.
--- NOTE | 2019-11-17 10:30 | NUR ---
PALEOLOGIST HAS FINISHED THE FIRST UNIT OF BLOOD AND IS READY FOR THE SECOND ONE. THIS RN SENT AIDE TO GET BLOOD THIS RN IS NOT ALLOWED TO LEAVE THE FLOOR. WHEN THE AIDE REACHED THE LAB, LAB CALLED THIS RN AND STATED THAT THERE WAS NO 2ND UNIT ORDERED. RN INFORMED LAB STAFF MEMBER PAOLO THAT THERE WAS 2 ORDERED BECAUSE I CLARIFIED THIS WITH THE DR EARLIER TODAY LISSY MARC RN TALKED WITH THE DR AND THE DIALYSIS NURSE WHO WAS SPEAKING WITH DR VILLA. PAOLO THEN STATED THAT HE HAS "CANCELLED THE ORDER" BECAUSE "THERE WERE ALOT OF DUPLICATE ORDERS" RN INFORMED PAOLO THAT WE NEED THIS ORDER AND WHY HE DID NOT CALL TO CLARIFY AND HE STATED THAT HE "JUST THOUGHT THEY WERE DUPLICATES. DR SAM NOTIFIED AND AGAIN STATED HE WANTED 2 UNITS. STAT ORDER TO BE PLACED SO THAT BLOOD CAN BE GIVEN WITH DIALYSIS
--- NOTE | 2019-11-17 11:04 | NUR ---
10:40 DR WISE IN TO SEE PT. VENT CHANGED MADE BY DR WISE. VT 55O, SET RR 24, PEEP 18, INSP TIME .75. VENT CHECKED AND FX'ING. ABG TO FOLLOW IN 1 HOUR. BBSs EQUAL, CLEAR AND DIMINISHED. SX'D FOR SMALL CREAMY SECRETIONS. WHEN SUCTIONING, UNABLE TO TOTALLY ADVANCE THE SX CATHETER COMPLETELY: MEETING RESISTANCE. DR WISE AWARE BY RN. PIPs NORMAL.
[2019-11-17 12:06] LABS: ABG BASE EXCESS -3.7 mmol/L (-2.0-2.0); ARTERIAL BLOOD GAS PH 7.282 (7.35-7.45)
--- NOTE | 2019-11-17 12:10 | NUR ---
Talked with [facility] nursing delivery supervisor regarding need for assistance with proning pt. Talked with Jessica VALDEZ in [place] regarding need to prone pt as soon as possible. States she is doing dental cases with children right now and she will get back with us when she will be available.
--- NOTE | 2019-11-17 12:22 | NUR ---
PER DR. SCHRADER AMENDED SERVICE DATE OF ECHO TO Wednesday11/20/19.
--- NOTE | 2019-11-17 14:19 | NUR ---
13:30 PT PLACED IN PRONE POSITION WITHOUT INCIDENT BY 8 PRACTIONERS. ETT SECURE USING PRONE PILLOW. HEAD POSITIONED TOWARD THE RIGHT. ANSETHESIA AT THE HEAD OF BED. PT SX'D FOR SMALL CREAM SECRETIONS. I WAS ABLE TO COMPLETELY ADVANCE THE SX CATHETER. VENT CHECKED AND FX'ING.
--- NOTE | 2019-11-17 14:30 | NUR ---
PRN VERSED GIVEN FOR RESTLESSNESS AND AGITATION. PATIENT IS LIFTING HEAD AND KICKING LEGS IN BED. MEDICATION WAS MINIMALLY EFFECTIVE WHILE RN WAS IN ROOM.
--- NOTE | 2019-11-17 15:00 | NUR ---
NIMBEX GIVEN AT THIS TIME, RESPIRATIONS HAVE INCREASED AND PATIENT IS ONCE AGAIN BREATHING OVER THE VENT. MEDICATION EFFECTIVE IMMEDIATLY
[2019-11-17 15:02] LABS: ARTERIAL BLOOD GAS PH 7.28 (7.35-7.45)
[2019-11-17 15:12] LABS: HEMATOCRIT 23.6 % (42.0-52.0); MEAN CELL VOLUME 84.9 fl (80.0-94.0); MEAN CORPUSCULAR HGB 27.3 pg (27.0-31.0); MEAN CORPUSCULAR HGB CONC 32.2 g/dl (33.0-37.0); MEAN PLATELET VOLUME 11.8 fl (9.6-12.3); PLATELET COUNT AUTOMATED 271 10*3/uL (130-400); RED BLOOD COUNT 2.78 10*6/uL (4.50-5.90); RED CELL DISTRI WIDTH 15.1 % (0-14.5)
--- NOTE | 2019-11-17 15:15 | NUR ---
SPOKE WITH DR WISE REGARDING BLOOD GAS RESULTS, ORDERS WERE PUT INTO A MESSAGE TO ELYSE
--- NOTE | 2019-11-17 15:19 | NUR ---
15:15 PaO2 312 FIO2 DECREASED TO 80% PER DR WISE.
--- NOTE | 2019-11-17 15:21 | NUR ---
PER DR WISE: DECREASE FIO2 TO 80%. FOLLOWED BY A DECREASE IN FIO2 BY 5% TO 60% TOLERATED. THEN ABG.
[2019-11-17 15:25] LABS: CREATININE 5.75 mg/dL (0.70-1.30)
[2019-11-17 15:35] LABS: POTASSIUM 4.3 mmol/L (3.5-5.1)
[2019-11-17 15:43] LABS: PLATELET SUFFICIENCY NORMAL (NORMAL); TOTAL CELLS COUNTED 100 #CELLS
[2019-11-17 15:44] LABS: ROULEAUX SLIGHT
--- NOTE | 2019-11-17 16:00 | NUR ---
SPOKE WITH DR WISE REGARDING H+H RESULTS. STATES TO GIVE 1 UNIT OF PRBC WITH DIALYSIS TOMORROW AND TO CONTINUE MONITOR H+H RESULTS EVERY 8 HOURS
--- NOTE | 2019-11-17 16:02 | NUR ---
THIS RN CALLED LAB REGARDING 1315 APTT RESULT STILL NOT IN, CALLED LAB AND SPOKE WITH JENNIFER, WHO THEN TRANSFERRED ME TO ACCESSIONING LAB. THE PERSON WHO ANSWERED THE PHONE DID NOT STATE THEIR NAME. WHEN THIS PERSON WAS QUESTIONED ON THE PHONE TO WHY THERE WAS NO RESULT, THE PERSON ON THE OTHER END OF THE LINE STATED THAT THE TUBE THAT THIS RN SENT WAS "TOO FULL" AND THEY HAD TO THROW IT AWAY. THIS PERSON STATED THAT THE ORDER WAS SENT TO OUTPATIENT LAB AND THEY WERE TOLD THAT IT NEEDED RECOLLECTED. HOWEVER, OUTPATIENT LAB DID NOT CALL THIS RN TO RECOLLECT THIS LAB UNTIL 1555. SO THIS RN COLLECTED ANOTHER AND SENT IT. DR SAM MADE AWARE. STATES TO SEE THE RESULT AND GO FROM THERE
--- NOTE | 2019-11-17 16:25 | NUR ---
16:15 FIO2 DECREASED TO 75%
--- NOTE | 2019-11-17 17:00 | NUR ---
ART LINE TUBING AND PRESSURE BAG CHANGED AT THIS TIME
--- NOTE | 2019-11-17 17:15 | NUR ---
FIO2 TITRATED TO 70% ARMS SWAM AT THIS TIME, EYES AND LIPS CHECKED WE ARE UNABLE TO TURN HEAD DUE TO BODY POSITION AND LARGE ABDOMEN.
--- NOTE | 2019-11-17 17:45 | NUR ---
APTT HAS FINALLY RESULTED, 56.8 WHICH IN THE PROTOCOL IS NO CHANGE. NEXT APTT WILL BE ORDERED FOR 11/17 529 WITH THE REST OF HIS MORNING LABS
--- NOTE | 2019-11-17 19:25 | NUR ---
Patient in prone postition, arms and legs moving, slight head movement. Nimbex given. Effective immediately. Monitoring on camera.
[2019-11-17 20:24] LABS: ABG BASE EXCESS -4.7 mmol/L (-2.0-2.0); ARTERIAL BLOOD GAS PH 7.274 (7.35-7.45)
--- NOTE | 2019-11-17 20:30 | NUR ---
PER BILLIE, PT DECREASED TO 50%. ABG IN ONE HR.
[2019-11-17 21:39] LABS: ARTERIAL BLOOD GAS PH 7.275 (7.35-7.45)
[2019-11-17 21:41] LABS: ABG BASE EXCESS -5.7 mmol/L (-2.0-2.0)
--- NOTE | 2019-11-17 22:15 | NUR ---
In room to swim patient, legs began to lift along with arms. Versed given. Effective immediately.
--- NOTE | 2019-11-17 22:34 | NUR ---
PTS FIO2 DECREASED POST ABG TO 45%. PT JULIO. WELL NO COMPS. WILL CONT. TO MONITOR.
[2019-11-17 23:37] LABS: HEMATOCRIT 22.9 % (42.0-52.0)
--- NOTE | 2019-11-17 23:39 | NUR ---
24 HR chart check completed.
[2019-11-18] VITALS (28 sets, daily range): BP systolic 134–187; BP diastolic 48–89
--- NOTE | 2019-11-18 00:30 | NUR ---
PT RUDYAM. RT AND RN IN . NO COMPS.
--- NOTE | 2019-11-18 00:30 | NUR ---
Patient attempting to move about while swimming arms and head while prone. Nimbex given. Effective immediately. Monitoring on camera.
--- NOTE | 2019-11-18 06:00 | NUR ---
Patient unproned with no complications. Patient stable. vital signs. hr 73. pulse ox 97%, bp 152/68, resp 24. Patient being monitored on camera.
[2019-11-18 06:31] LABS: BASO % 0.5 % (0.0-1.0); EOS # 0.2 10*3/uL (0.0-0.4); EOS % 1.9 % (1.0-4.0); HEMATOCRIT 24.2 % (42.0-52.0); LYMPH # 1.4 10*3/uL (1.3-4.4); LYMPH % 16.4 % (27.0-41.0); MEAN CELL VOLUME 84.6 fl (80.0-94.0); MEAN CORPUSCULAR HGB 26.6 pg (27.0-31.0); MEAN CORPUSCULAR HGB CONC 31.4 g/dl (33.0-37.0); MONO % 11.3 % (3.0-9.0); NEUT # 5.7 10*3/uL (2.3-7.9); PLATELET COUNT AUTOMATED 264 10*3/uL (130-400); RED BLOOD COUNT 2.86 10*6/uL (4.50-5.90); RED CELL DISTRI WIDTH 15.1 % (0-14.5); WHITE BLOOD COUNT 8.6 10*3/uL (4.8-10.8)
[2019-11-18 06:44] LABS: ALBUMIN 1.9 gm/dl (3.1-4.5); CREATININE 6.92 mg/dL (0.70-1.30); POTASSIUM 4.7 mmol/L (3.5-5.1); TOTAL PROTEIN 6.8 gm/dL (6.4-8.2)
[2019-11-18 07:10] LABS: HEP B CORE AB, IGM Negative (Negative); HEPATITIS B SURFACE AG Negative (Negative); HEPATITIS C VIRUS ANTIBODY <0.1 s/co (0.0-0.9)
--- NOTE | 2019-11-18 08:00 | NUR ---
REMAINS ON VENT, ETT SECURE, OGT SECURE, PT LYING SUPINE, HEPARIN AT 20UNIT ART LINE ZERO CALIBRATED WITH GOOD DYNAMIC RESPONSE, MLC TO RIJ, TESSO TO LIJ PT CONDITION UNCHANGED
[2019-11-18 08:13] LABS: ARTERIAL BLOOD GAS PH 7.274 (7.35-7.45)
[2019-11-18 08:15] LABS: ABG BASE EXCESS -6.5 mmol/L (-2.0-2.0)
--- NOTE | 2019-11-18 08:39 | NUR ---
VERSED AND NORCO GIVEN FOR PAIN AND VESED FOR THE FACT THAT THE PT IS WIDE AWAKE ON DIPROVAN AT 50 TUBE FEEDINGS STARTED AT 10CC MAINTAINCE IS ROON THE AIR HANDLER DUCT WORK HAS RIPPED FREE OF THE DUCT IN THE CEILING AND IS BEING REPAIRED WITH DUCT TAPE/FOIL TAPE
--- NOTE | 2019-11-18 09:11 | NUR ---
VERSED GIVEN PT IS WIDE AWAKE ON DIPROVAN TUBE FEEDINGS STARTED AT 10CC MAINTAINCE IN ROOM AIR HANDLER HAS RIPPED LOOSE FROM THE CONNECTION ON CEILING-IT IS BEING TAPED WITH DUCT TAPE
--- NOTE | 2019-11-18 09:39 | NUR ---
JEREMIEED AND REBEKAH EFFECTIVE
[2019-11-18 12:08] LABS: ABG BASE EXCESS -5.5 mmol/L (-2.0-2.0); ARTERIAL BLOOD GAS PH 7.273 (7.35-7.45)
--- NOTE | 2019-11-18 15:31 | NUR ---
DILUADID PER ROUTINE
[2019-11-18 15:48] LABS: ABG BASE EXCESS -4.9 mmol/L (-2.0-2.0); ARTERIAL BLOOD GAS PH 7.287 (7.35-7.45)
--- NOTE | 2019-11-18 16:17 | NUR ---
3RD RBC BEING GIVEN BY INSULATION ESTIMATOR
--- NOTE | 2019-11-18 17:00 | NUR ---
BLOOD TRANSFUSION COMPLETED TRANSFUSED BY DIALYSIS NURSE DURING TREATMENT
--- NOTE | 2019-11-18 18:12 | NUR ---
VERSED GIVEN FOR DEEPER SEDATION
--- NOTE | 2019-11-18 19:34 | NUR ---
PATIENT PULLING AT RESTRAINTS AND MOVING HIS HEAD AROUND PATIENT VERY RESTLESS PATIENT GIVEN NIMBEX AND VERSED PATIENT BP WAS ALSO [id number]/79.
--- NOTE | 2019-11-18 20:00 | NUR ---
PATIENT RESTING AT THIS TIME NO PULLING AT RESTRAINTS AND BP IS NOW 164/74.
[2019-11-18 22:57] LABS: HEMATOCRIT 23.2 % (42.0-52.0)
[2019-11-19] VITALS (16 sets, daily range): BP systolic 125–156; BP diastolic 47–74
--- NOTE | 2019-11-19 | NUR ---
BED BATH PROVIDED, LINENS CHANGED. TUBE TAMER CHANGED BY RESPIRATORY. UNABLE TO TURN PATIENT D/T SIZE. WEIGHT SHIFTED AND LIMBS REPOSITIONED.
--- NOTE | 2019-11-19 01:00 | NUR ---
TUBE HOWARD CHANGED. TUBE IN CORRECT SPOT AND SECURE
--- NOTE | 2019-11-19 01:56 | NUR ---
24 HR. CHART CHECK COMPLETE.
--- NOTE | 2019-11-19 02:10 | NUR ---
NORCO EFFECTIVE FOR PAIN PATINET RESTING CVOMFORTABLE AT THIS TIME.
--- NOTE | 2019-11-19 03:56 | NUR ---
PATIENT IS AWAKE, PULLING AT RESTRAINTS AND KICKING LEGS. NIMBEX AND VERSED GIVEN AND EFFECTIVE IMMEDIATELY. DIPROVAN CONTINUED FOR AMOUNT LEFT IN BAG.
[2019-11-19 04:42] LABS: BASO % 0.3 % (0.0-1.0); EOS # 0.2 10*3/uL (0.0-0.4); EOS % 3.2 % (1.0-4.0); HEMATOCRIT 22.5 % (42.0-52.0); LYMPH # 1.4 10*3/uL (1.3-4.4); LYMPH % 19.1 % (27.0-41.0); MEAN CELL VOLUME 84.6 fl (80.0-94.0); MEAN CORPUSCULAR HGB 27.4 pg (27.0-31.0); MEAN CORPUSCULAR HGB CONC 32.4 g/dl (33.0-37.0); MEAN PLATELET VOLUME 11.2 fl (9.6-12.3); MONO # 0.9 10*3/uL (0.1-1.0); MONO % 12.2 % (3.0-9.0); NEUT # 4.7 10*3/uL (2.3-7.9); NEUT % 62.7 % (47.0-73.0); NUCLEATED RED BLOOD CELL 0.3 % (0.0-0.0); PLATELET COUNT AUTOMATED 222 10*3/uL (130-400); RED BLOOD COUNT 2.66 10*6/uL (4.50-5.90); RED CELL DISTRI WIDTH 15.2 % (0-14.5); WHITE BLOOD COUNT 7.6 10*3/uL (4.8-10.8)
[2019-11-19 04:57] LABS: ALBUMIN 1.7 gm/dl (3.1-4.5); CREATININE 6.02 mg/dL (0.70-1.30); TOTAL PROTEIN 6.3 gm/dL (6.4-8.2)
[2019-11-19 05:24] LABS: ACT PARTIAL THROMBO TIME 71.3 SECONDS (20.0-32.1)
--- NOTE | 2019-11-19 06:20 | NUR ---
TUBE ADVANCED AGAIN TO 24 AT THE TEETH. SUCTIONED FOR THICK CLEAR
--- NOTE | 2019-11-19 06:37 | NUR ---
BLOOD GLUCOSE 100 FROM AM LABS.
--- NOTE | 2019-11-19 07:30 | NUR ---
REMAINS INTUBATED WITH # 8, 24 CM AT LIP, PT FULLY AWAKE AND FOLLOWS COMMANDS APPROPIAETLY, WHEN ASKED IF HE WAS HAVING ANY PAIN-PT LIFTED RIGHT ARM AND MOTIONED TOWARD IT, AND NODDED HEAD YES WHEN ASKED IF HIS ARMS/HANDS ACHED, ALL LINES SECURE/GARCIA/PULMOCARE AT 20 VIA OGT/EXTREMETIES EXERCISED WITH ASSISTANCE FROM PT, PT ENCOURAGED TO DO ANKLE ROLLS AND PEDAL PUSHES AND KNEE BENDS, PT NODDED AGREEAMENT
--- NOTE | 2019-11-19 07:37 | NUR ---
REBEKAH FOR C/O ARM/HAND PAINS
[2019-11-19 08:00] LABS: ABG BASE EXCESS -3.1 mmol/L (-2.0-2.0); ARTERIAL BLOOD GAS PH 7.298 (7.35-7.45)
--- NOTE | 2019-11-19 08:37 | NUR ---
[place] EFFECTIVE
--- NOTE | 2019-11-19 09:39 | NUR ---
DILUADID/VERSED JUST PRIOR TO DRSG CHANGES TO CENTRAL/ART LINE
--- NOTE | 2019-11-19 10:37 | NUR ---
VERSED/DILUADID WERE EFFECTIVE PT REMAINS CALM WHILE MLC AND ART LINE DRSG AND TUBING WERE CHANGED PORT CXR COMPLETED PT CONTINUES WIHT LARGE AMOUNT ORAL SECRETIONS AND SMALL-MODERATE WHITE ETT MUCUS
--- NOTE | 2019-11-19 11:37 | NUR ---
REPOSITIONED, RESTING QUIETLY, NO CHANGE IN ASSESSMENT
--- NOTE | 2019-11-19 13:00 | NUR ---
DR WISE IN TO SEE PT
--- NOTE | 2019-11-19 13:10 | NUR ---
ID IN TO SEE PT
[2019-11-19 14:25] LABS: HEMATOCRIT 22.6 % (42.0-52.0)
--- NOTE | 2019-11-19 14:34 | NUR ---
DR GOTTLIEB UPDATED ON MOST RECENT HH
--- NOTE | 2019-11-19 14:37 | NUR ---
DR HOWARD HERE AND ASKED ABOUT BUMEX DOSE -PER DR WISE- NO CHANGES MADE TO BUMEX DOSE FOR NOW PT FOR DIALYSIS TOMORROW
[2019-11-19 15:29] LABS: ABG BASE EXCESS -3.7 mmol/L (-2.0-2.0); ARTERIAL BLOOD GAS PH 7.297 (7.35-7.45)
--- NOTE | 2019-11-19 16:01 | NUR ---
DILUADID/VERSED GIVEN FOR PIAN/SEDATION
[2019-11-19 17:04] LABS: ABG BASE EXCESS -4.4 mmol/L (-2.0-2.0); ARTERIAL BLOOD GAS PH 7.291 (7.35-7.45)
--- NOTE | 2019-11-19 20:05 | NUR ---
PATIENT MEDICATED WITH NORCO FOR PAIN AND AND GIVEN VERSED FOR SEDATION PATIENT PULLING ON RESTRAINTS VERSED EFFECTIVE IMMEDATLEY.
[2019-11-20] VITALS (12 sets, daily range): BP systolic 110–155; BP diastolic 7–82
--- NOTE | 2019-11-20 01:00 | NUR ---
PATIENT BATHED AT THIS TIME AND IS RESTING COMFORTABLE
[2019-11-20 04:55] LABS: HEMATOCRIT 23.5 % (42.0-52.0); MEAN CELL VOLUME 85.1 fl (80.0-94.0); MEAN CORPUSCULAR HGB 26.8 pg (27.0-31.0); MEAN CORPUSCULAR HGB CONC 31.5 g/dl (33.0-37.0); MEAN PLATELET VOLUME 11.9 fl (9.6-12.3); PLATELET COUNT AUTOMATED 218 10*3/uL (130-400); RED BLOOD COUNT 2.76 10*6/uL (4.50-5.90); RED CELL DISTRI WIDTH 15.5 % (0-14.5); WHITE BLOOD COUNT 8.3 10*3/uL (4.8-10.8)
[2019-11-20 05:10] LABS: ALBUMIN 1.8 gm/dl (3.1-4.5); CREATININE 7.27 mg/dL (0.70-1.30); POTASSIUM 4.5 mmol/L (3.5-5.1); TOTAL PROTEIN 6.5 gm/dL (6.4-8.2)
--- NOTE | 2019-11-20 05:30 | NUR ---
HEPARIN ON HOLD FOR ONE HOUR WITH RATE DECREASE WILL RESTART AT 0630
[2019-11-20 05:47] LABS: TOTAL CELLS COUNTED 100 #CELLS
[2019-11-20 05:49] LABS: PLATELET SUFFICIENCY NORMAL (NORMAL)
--- NOTE | 2019-11-20 05:52 | NUR ---
INFORMED DOCTOR MCGUIRE OF PATIENTS PHOS OF 10.0 NO NEW ORDRES AT THIS TIME.
[2019-11-20 07:37] LABS: ARTERIAL BLOOD GAS PH 7.264 (7.35-7.45)
[2019-11-20 07:38] LABS: ABG BASE EXCESS -6.1 mmol/L (-2.0-2.0)
--- NOTE | 2019-11-20 08:10 | NUR ---
REMAINS INTUBATED WITH #8ETT, 24 CM AT LIP DESPITE BEING ON THE MAX DOSE OF DIPROVAN, PT IS AWAKE,AND FOLLOW COMMANDS, COOPERATIVE WITH CARE OGT WITH PULMOCAE AT 30, LIJ, RIJ TESSO, L ART LINE ALL SECURE GARCIA DRAINING SMALL AMOUNT OF DEBBY URINE, PT REPOSITIONED SIZE ALLOWS NORCO GIVEN FOR GENERALIZED DISCOMFORTS
--- NOTE | 2019-11-20 09:10 | NUR ---
NORCO EFFECTIVE, PT APPEARS MORE COMFORTABLE
--- NOTE | 2019-11-20 09:42 | NUR ---
DILUADIDI PER ROUTINE FOR DISCOMFORTS
--- NOTE | 2019-11-20 10:34 | NUR ---
per Dr. Wren hold echo till swab result for COVID is back.
--- NOTE | 2019-11-20 12:30 | NUR ---
DR WISE HERE TO SEE PT
--- NOTE | 2019-11-20 13:33 | NUR ---
VERSED FOR DEEPER SEDATION DURING DIALYSIS
--- NOTE | 2019-11-20 17:20 | NUR ---
TRANSFERRED TO [facility] 2 REPORT GIVEN
--- NOTE | 2019-11-20 17:27 | NUR ---
MOTHER CALLED AND UPDATED
--- NOTE | 2019-11-20 17:31 | NUR ---
DR HOWARD IN TO SEE PT DURING DIALYSIS WILL AWAIT AM LAB RESULTS TO DECIDE IF PT NEED DIALYSIS TX IN AM RN TO CALL RENAL LABS ARE ELEVATED
--- NOTE | 2019-11-20 18:24 | NUR ---
Medicated for constipation, Oral care given and total care bed set to percussion. Oral suctioned for large amt clear mucous. ETT suctioned for thick pale yellow secretions.
--- NOTE | 2019-11-20 19:01 | NUR ---
VERSED GIVEN FOR PT AGITATION, RESPIRATIONS INCREASED TO 30 AND 88% ON PULSE OX WHILE ON VENT. MEDICATION EFFECTIVE. PULSE OX IMPROVED TO 92% RESPS NOW AT 24. NO S/S OF DISTRESS.
--- NOTE | 2019-11-20 19:10 | NUR ---
ASSUMED CARE OF PATTIENT FROM GREYSON MCKENZIE. PATIENT IS ABLE TO OPEN EYES TO VERBAL STIMULI AND UNDERSTANDS COMMANDS APPROPRIATELY. PATIENT IS IN SOFT WRIST RESTRAINTS TO PREVENT EXTUBATION. PULSE OX CURRENTLY AT 90%. BLOOD GAS DRAWN. PT LIGHTLY SEDATED ON DIPRIVAN GTT. NSR ON MONITOR HOB ELEVATED TO 30 DEGREES.
[2019-11-20 19:29] LABS: ABG BASE EXCESS -2.9 mmol/L (-2.0-2.0); ARTERIAL BLOOD GAS PH 7.306 (7.35-7.45)
--- NOTE | 2019-11-20 21:30 | NUR ---
BED BATH COMPLETED AND BED LINENS CHANGED. PATIENT HAD A LARGE LIQUID BOWEL MOVEMENT.
--- NOTE | 2019-11-20 21:54 | NUR ---
PATIENT HAD ANOTHER LARGE LIQUID BOWEL MOVEMENT AT THIS TIME. PATIENT CLEANED AND CHANGED. PATIENT SUCTIONED WITH YANKAR AND ENCLOSED SYSTEM, LARGE AMOUNT OF THICK CLEAR SPUTUM RECEIVED.
--- NOTE | 2019-11-20 23:22 | NUR ---
CHART CHECK COMPLETED.
[2019-11-21] VITALS (12 sets, daily range): BP systolic 118–180; BP diastolic 55–70
--- NOTE | 2019-11-21 00:09 | NUR ---
MID[place]AM GIVEN DUE TO PATIENT GETTING AGGITATED AND PULLING AT RESTRAINTS. MEDICATION EFFECTIVE AND PATIENT RESTING COMFORTABLY. PATIENT SUCTIONED FOR A LARGE AMOUNT OF THICK SPUTUM. PATIENT PERCUSSION INITIATED ON THE BED FOR TEN MINUTES. PULSE OC CURRENTLY 93%.
--- NOTE | 2019-11-21 02:22 | NUR ---
PATIENT GIVEN VERSED AT THIS TIME. PT BECOMING AGITATED AND PULLING AT RESTRAINTS, RR WAS 32-34 AND BP WAS ELEVATED FROM BASELINE. MEDICATION EFFECTIVE.
[2019-11-21 04:54] LABS: HEMATOCRIT 23.1 % (42.0-52.0); MEAN CELL VOLUME 85.9 fl (80.0-94.0); MEAN CORPUSCULAR HGB 26.4 pg (27.0-31.0); MEAN CORPUSCULAR HGB CONC 30.7 g/dl (33.0-37.0); MEAN PLATELET VOLUME 12.3 fl (9.6-12.3); PLATELET COUNT AUTOMATED 219 10*3/uL (130-400); RED BLOOD COUNT 2.69 10*6/uL (4.50-5.90); RED CELL DISTRI WIDTH 15.7 % (0-14.5)
[2019-11-21 05:08] LABS: ACT PARTIAL THROMBO TIME 53.8 SECONDS (20.0-32.1)
[2019-11-21 05:25] LABS: ALBUMIN 1.8 gm/dl (3.1-4.5); CREATININE 5.71 mg/dL (0.70-1.30); POTASSIUM 4.3 mmol/L (3.5-5.1); TOTAL PROTEIN 6.6 gm/dL (6.4-8.2)
[2019-11-21 05:31] LABS: PLATELET SUFFICIENCY NORMAL (NORMAL); TOTAL CELLS COUNTED 100 #CELLS
[2019-11-21 05:32] LABS: BURR CELLS FEW; OVALOCYTES FEW
--- NOTE | 2019-11-21 06:41 | NUR ---
VERSED GIVEN. PATIENT BECOMING AGITATED AND PULLING AT RESTRAINTS AND BECOMING HYPERTENSIVE. MEDICATION EFFECTIVE.
[2019-11-21 08:38] LABS: ABG BASE EXCESS -3.8 mmol/L (-2.0-2.0); ARTERIAL BLOOD GAS PH 7.276 (7.35-7.45)
--- NOTE | 2019-11-21 09:03 | NUR ---
PATIENT RESTLESS/AGITATED AT THIS TIME. MEDICATED WITH VERSED PER PRN ORDER AND IMMEDIATELY EFFECTIVE FOR SEDATION. WILL CONTINUE TO MONITOR.
--- NOTE | 2019-11-21 15:10 | NUR ---
NOTIFIED OF NEW CONSULT ORDER. NO NEW ORDERS RECEIVED AT THIS TIME.
--- NOTE | 2019-11-21 15:22 | NUR ---
PATIENT ALARMING HIGH PRESSURE ON VENTILATOR. SUCTIONED FOR MODERATED AMOUNT THICK SECRETIONS. PATIENT RESTLESS/AGITATED. MEDICATED WITH VERSED PER PRN ORDER. WILL CONTINUE TO MONITOR.
--- NOTE | 2019-11-21 20:15 | NUR ---
1928 BP ELEVATED. MOVING ARMS ABOUT. VERSED 5MG IV FOR THIS. 1999 EARLIER VERSED EFFECTIVE. RESTING IN BED WITH HOB ELEVATED. SIDE RAILS UP X'S 2. REMAINS NPO. ET SECURE TO VENT. PULSE OX 91% ON 40% FIO2 VIA VENT. SUCTIONED ORALLY AND VIA ET FOR LARGE AMOUNT CLEAR SECRETIONS. RIJ DIALYSIS CATH INTACT. LIJ MLC INTACT. DIPRIVAN GTT MAINTAINED AT 50MICS. L RADIAL ART LINE INTACT. ZEROED AND CALIBRATED WITH GOOD WAVEFORM AND DYNAMIC REPSONSE. WRIST RESTRATINTS INTACT BILATERALLY. CIRCULATION ADEQUATE. GARCIA PATENT AND DRAINING GREEN TINGED URINE. EDEMA CONT OF LOWER EXTREMITIES. TF MAINTAINED VIA OGT AT 50CC/HR. PLACEMENT CONFIRMED WITH AIR BOLUS/AUSCULTATION. AFBERILE. NO DISTRESS NOTED AT PRESENT.
--- NOTE | 2019-11-21 23:06 | NUR ---
2245 COMPLETE BED BATH GIVEN AND LINENS CHANGED. SUCTIONED ORALLY FOR LARGE AMOUNT SECRETIONS. REPOSITIONED. 2302 VERSED 5MG IV FOR AGITATION AND EFFECTIVE.
[2019-11-22] VITALS (13 sets, daily range): BP systolic 117–193; BP diastolic 53–80
--- NOTE | 2019-11-22 01:39 | NUR ---
VERSED 5MG IV FOR RESTLESSNESS. WILL MONITOR.
--- NOTE | 2019-11-22 02:17 | NUR ---
EARLIER VERSED EFFECTIVE.
[2019-11-22 04:33] LABS: HEMATOCRIT 23.4 % (42.0-52.0); MEAN CELL VOLUME 86.3 fl (80.0-94.0); MEAN CORPUSCULAR HGB 26.9 pg (27.0-31.0); MEAN CORPUSCULAR HGB CONC 31.2 g/dl (33.0-37.0); MEAN PLATELET VOLUME 12.1 fl (9.6-12.3); PLATELET COUNT AUTOMATED 214 10*3/uL (130-400); RED BLOOD COUNT 2.71 10*6/uL (4.50-5.90); RED CELL DISTRI WIDTH 16.3 % (0-14.5); WHITE BLOOD COUNT 10.5 10*3/uL (4.8-10.8)
[2019-11-22 05:04] LABS: ALBUMIN 1.8 gm/dl (3.1-4.5); CREATININE 6.32 mg/dL (0.70-1.30); POTASSIUM 5.1 mmol/L (3.5-5.1)
[2019-11-22 05:05] LABS: BURR CELLS FEW; PLATELET SUFFICIENCY NORMAL (NORMAL); TOTAL CELLS COUNTED 100 #CELLS; TOTAL PROTEIN 6.7 gm/dL (6.4-8.2)
[2019-11-22 05:06] LABS: MICROCYTOSIS MODERATE; OVALOCYTES FEW
--- NOTE | 2019-11-22 05:31 | NUR ---
VERSED 5MG IV FOR AGITATION. EFFECTIVE.
--- NOTE | 2019-11-22 06:11 | NUR ---
TUBE FEEDING STOPPED ORDERED. PT FOR EGD TODAY. ET SECURE TO VENT. PULSE OX 90%. DIPRIVAN GTT CONT. WRIST RESTRAINTS INTACT. CONDITION GUARDED.
--- NOTE | 2019-11-22 06:56 | NUR ---
0653 BP ELEVATED AND PT IS AGITATED. VERSED 5MG IV AND EFFECTIVE,
--- NOTE | 2019-11-22 07:01 | NUR ---
ABG DRAWN, PULSE OX 86%, INCREASED O2 TO 55%. RN AWARE.
[2019-11-22 07:03] LABS: ARTERIAL BLOOD GAS PH 7.244 (7.35-7.45)
--- NOTE | 2019-11-22 07:33 | NUR ---
DR. WISE CALLED WITH ABG RESULTS, INCREASED O2 TO 70% PER DR. ADKINS. RN AWARE.
--- NOTE | 2019-11-22 08:09 | NUR ---
HEMA DAMICO [id number] Please refer to the physician's history and physical for past medical history, comorbid conditions, and allergies. Diagnosis: ACUTE RESPIRATORY FAILURE WITHY HYPOXIA ACUTE Khadar Score: 12,HIGH RISK WOUND DESCRIPTIONS: Wound Number: 1 Location of the wound: Left upper arm Thickness: Partial Size: 10.5cm x 11.0cm x <0.1cm Tunneling: none Undermining: none Sinus Tract: none Presence of Exudate: none Amount: None Color: Red Odor: None Periwound Skin Appearance: warmth, firmness Wound edges: closed Pain (associated with wound): none at time of assessment How does patient state this happened? pt unable to state how this happened Wound Number: 2 Location of the wound: Left lower quadrant Thickness: Partial Size: 6.0cm x 10.0cm x <0.1cm Tunneling: none Undermining: none Sinus Tract: none Presence of Exudate: none Amount: None Color: Red Odor: None Periwound Skin Appearance: warmth, firmness Wound edges: closed Pain (associated with wound): none at time of assessment How does patient state this happened? pt unable to state how this happened Surface the patient is resting on: XPRT SKIN PREVENTION RECOMMENDATION: 1. Pressure redistribution support surface as appropriate 2. Elevate heels 3. Remove boots/TEDS every shift and reapply 4. Head of bed 30 degrees as tolerated 5. Assess nutrition and hydration 6. Manage moisture 7. Avoid the use of containment devices while in bed 8. Use absorptive products on surfaces limit layers of linens on bed 9. Turn and reposition every 1-2 hours in bed and every 1 hour in chair as tolerated 10. Weight shifts every 15 minutes while up in chair 11. Offloading with pillows or device to keep heels elevated off bed 12. Monitor skin at least every shift 13. Inspect under medical devices twice a day WOUND TREATMENT RECOMMENDATIONS: Ultrasound to left upper extremity and left lower abdomen ID is already on consult nurse caring for patient states will bring it to there attention as well attending physician.
--- NOTE | 2019-11-22 13:41 | NUR ---
Nutritional Support Services Note: Dx of acute respiratoty failure with hypoxia, dm, htn, ckd-stage 4, colitis, gout. Pt is on vent. OGT of Nepro to run at 60cc/hr for 24 hour continuous. Will provide pt with 2592cal daily and 114gr. of protein daily. HT.6' Wt.430#. Wounds noted. Will follow as needed. Vanessa Austin Rdn Ld
[2019-11-22 16:24] LABS: ARTERIAL BLOOD GAS PH 7.228 (7.35-7.45)
--- NOTE | 2019-11-22 16:30 | NUR ---
DR. ADKINS CALLED WITH ABG RESULTS, MESSAGE LEFT ON VOICEMAIL. RN AWARE.
--- NOTE | 2019-11-22 16:56 | NUR ---
SWAM PT AT 1655.
[2019-11-22 18:03] LABS: ABG BASE EXCESS -4.2 mmol/L (-2.0-2.0); ARTERIAL BLOOD GAS PH 7.217 (7.35-7.45)
--- NOTE | 2019-11-22 18:07 | NUR ---
FIO2 DECREASED TO 50% AT 1808, REPEAT ABG IN ONE HOUR, RN AWARE.
[2019-11-22 19:27] LABS: ABG BASE EXCESS -4.8 mmol/L (-2.0-2.0); ARTERIAL BLOOD GAS PH 7.201 (7.35-7.45)
--- NOTE | 2019-11-22 19:35 | NUR ---
CHART CHECK COMPLETE.
--- NOTE | 2019-11-22 20:53 | NUR ---
PATIENT SWIM POSITION WAS CHANGED FROM LEFT TO RIGHT, HEAD TURNED, LEFT ARM RAISED AND RIGH ARM LOWERED
[2019-11-22 21:31] LABS: ARTERIAL BLOOD GAS PH 7.234 (7.35-7.45)
[2019-11-23] VITALS (10 sets, daily range): BP systolic 139–156; BP diastolic 63–79
[2019-11-23 05:33] LABS: ALBUMIN 1.9 gm/dl (3.1-4.5); CREATININE 4.92 mg/dL (0.70-1.30); POTASSIUM 4.8 mmol/L (3.5-5.1); TOTAL PROTEIN 6.9 gm/dL (6.4-8.2)
[2019-11-23 06:19] LABS: HEMATOCRIT 25.3 % (42.0-52.0); MEAN CELL VOLUME 88.2 fl (80.0-94.0); MEAN CORPUSCULAR HGB 26.5 pg (27.0-31.0); MEAN PLATELET VOLUME 12.6 fl (9.6-12.3); PLATELET COUNT AUTOMATED 257 10*3/uL (130-400); RED BLOOD COUNT 2.87 10*6/uL (4.50-5.90); RED CELL DISTRI WIDTH 16.3 % (0-14.5); WHITE BLOOD COUNT 11.7 10*3/uL (4.8-10.8)
[2019-11-23 06:34] LABS: ACT PARTIAL THROMBO TIME 51.8 SECONDS (20.0-32.1)
--- NOTE | 2019-11-23 06:45 | NUR ---
PT TURNED FROM PRONE POSITION
[2019-11-23 07:22] LABS: ABG BASE EXCESS -4.7 mmol/L (-2.0-2.0); ARTERIAL BLOOD GAS PH 7.232 (7.35-7.45)
[2019-11-23 07:59] LABS: TOTAL CELLS COUNTED 100 #CELLS
[2019-11-23 08:00] LABS: PLATELET SUFFICIENCY NORMAL (NORMAL)
--- NOTE | 2019-11-23 08:00 | NUR ---
SEDATED ON VENT WITH DIPRIVAN 50 EMIL'S AND NIMBEX AT 0.5 EMIL'S. BP 149/77. PULSE OX ON VENT DROPPED TO 74%. O2 INCREASED TO 100% AND PULSE OX UP TO 90%. SUCTIONED SEVERAL TIMES FOR LARGE AMOUNT THICK WHITE SECRETIONS. FIO2 ON VENT PLACED TO 70%. OGT INTACT AND INFUSING NEPHRO AT 40CC/HR. GARCIA INTACT AND DRAINING DARK TEA COLORED URINE OF SMALL AMOUNTS. ART LINE INTACT TO LEFT RADIAL WITH GOOD HEMODYNAMIC RESPONSE.
[2019-11-23 08:02] LABS: OVALOCYTES FEW
--- NOTE | 2019-11-23 09:06 | NUR ---
END USER CONSULTANT FAXED NEW REFERRAL FOR [facility] TO REVIEW.
--- NOTE | 2019-11-23 09:30 | NUR ---
DR. WISE HERE TO SEE PATIENT. LABS AND MED'S REVIEWED. NEW ORDERS RECEIVED.
[2019-11-23 10:06] LABS: ABG BASE EXCESS -5.2 mmol/L (-2.0-2.0); ARTERIAL BLOOD GAS PH 7.212 (7.35-7.45)
--- NOTE | 2019-11-23 10:10 | NUR ---
ADVANCED TUBE 3CM. NOW 27 @ LIP
--- NOTE | 2019-11-23 11:07 | NUR ---
[facility] [employer] MGR RECEIVED CALL FROM [facility], THEY ARE REVIEWING CLINICALS.
--- NOTE | 2019-11-23 14:38 | NUR ---
KETAMINE GTT STARTED AT 1MIC AND DIPRIVAN GTT TITRATED DOWN TO 40 EMIL'S
--- NOTE | 2019-11-23 15:16 | NUR ---
PT PRONNED AT 1513. TUBE IN PLACE.
[2019-11-23 17:16] LABS: ABG BASE EXCESS -5.5 mmol/L (-2.0-2.0); ARTERIAL BLOOD GAS PH 7.231 (7.35-7.45)
[2019-11-24] VITALS (22 sets, daily range): BP systolic 114–184; BP diastolic 57–86
--- NOTE | 2019-11-24 01:30 | NUR ---
PT SWAM. ARMS REPOSITIONED.
--- NOTE | 2019-11-24 02:00 | NUR ---
PATIENT HAS BEEN HAVING LARGE LQUID STOOLS STARTING AT AROUND 2300 DOCTOR VIVIANA CALLED ORDER RECIEVED FOR RECTAL TUBE. RECTAL TUBE PLACED PATIENT TOLERATED WELL VITALS STABLE PATIENT ON VENT CURRENTLY.
--- NOTE | 2019-11-24 04:18 | NUR ---
Upon discharge recommend patient to follow up for wound care in outpatient setting continue current wound care orders at discharging facility.
[2019-11-24 06:10] LABS: CREATININE 6.37 mg/dL (0.70-1.30); POTASSIUM 5.3 mmol/L (3.5-5.1); TOTAL PROTEIN 7.4 gm/dL (6.4-8.2)
[2019-11-24 06:13] LABS: HEMATOCRIT 26.5 % (42.0-52.0); MEAN CELL VOLUME 88.3 fl (80.0-94.0); MEAN CORPUSCULAR HGB CONC 29.4 g/dl (33.0-37.0); MEAN PLATELET VOLUME 12.1 fl (9.6-12.3); PLATELET COUNT AUTOMATED 295 10*3/uL (130-400); RED CELL DISTRI WIDTH 16.1 % (0-14.5); WHITE BLOOD COUNT 13.2 10*3/uL (4.8-10.8)
[2019-11-24 07:17] LABS: BASOPHILS 1 % (0-1); PLATELET SUFFICIENCY NORMAL (NORMAL); POLYCHROMASIA SLIGHT; TOTAL CELLS COUNTED 100 #CELLS
[2019-11-24 07:18] LABS: ROULEAUX MODERATE
--- NOTE | 2019-11-24 07:30 | NUR ---
KETAMINE INCREASED TO 3
--- NOTE | 2019-11-24 07:30 | NUR ---
DIPROVAN TITRATED TO 20
--- NOTE | 2019-11-24 07:32 | NUR ---
LATE NOTE: GOGGLES ASSEMBLER SPOKE WITH [facility]. THEY REQUESTED THE PATIENT TO HAVE A PEG AND TRACH BEFORE THEY WOULD ACCEPT/ START PRECERT. GOGGLES ASSEMBLER INFORMED RN HOSPITALIST COORDINATOR MIREYA.
--- NOTE | 2019-11-24 08:00 | NUR ---
DIPROVAN TITRATED TO 10
--- NOTE | 2019-11-24 08:00 | NUR ---
KETAMINE INCREASED TO 3.5
--- NOTE | 2019-11-24 08:30 | NUR ---
KETAMINE INCREASED TO 4
--- NOTE | 2019-11-24 09:00 | NUR ---
KETAMINE INCREASED TO 4.5
--- NOTE | 2019-11-24 09:00 | NUR ---
KETAMINE INCREASED TO 3
--- NOTE | 2019-11-24 09:00 | NUR ---
KETAMINE INCREASED TO 4
[2019-11-24 09:04] LABS: ABG BASE EXCESS -4.7 mmol/L (-2.0-2.0); ARTERIAL BLOOD GAS PH 7.242 (7.35-7.45)
--- NOTE | 2019-11-24 09:30 | NUR ---
KETAMINE INCREASED TO 5
--- NOTE | 2019-11-24 10:00 | NUR ---
KETAMINE INCREASED TO 3.5
--- NOTE | 2019-11-24 10:00 | NUR ---
KETAMINE INCREASED TO 5.5
--- NOTE | 2019-11-24 10:30 | NUR ---
KETAMINE INCREASEED TO 6
--- NOTE | 2019-11-24 11:58 | NUR ---
[employer] FINAL INSPECTOR EMAILED REFERRAL TO CHRISTOPHER CHIN @ [email or web address]. [employer]OR[employer] FINAL INSPECTOR ATTEMPTED TO REACH OUT TO PATIENTS MOTHER JOCELYN. PHONE RANG TO VOICEMAIL AND NO VOICEMAIL IS SET UP. WILL ATTEMPT TO CALL AT A LATER TIME.
--- NOTE | 2019-11-24 12:44 | NUR ---
VERSED FOR SEDATION TO ASSIST WITH TURNING FOR BED CHANGE
--- NOTE | 2019-11-24 13:25 | NUR ---
DR KOHLER UP DATED ON NEW BLISTER ON L FOOT
--- NOTE | 2019-11-24 13:37 | NUR ---
NIMBEX INCREASED FROM 0.5 TO 1
--- NOTE | 2019-11-24 14:47 | NUR ---
NIMBEX MORE EFFECTIVE
--- NOTE | 2019-11-24 16:08 | NUR ---
VERSED FOR SEDATION
--- NOTE | 2019-11-24 16:38 | NUR ---
DR WISE UPDATED WITH HEART RATE AFTER NEW DOSE OF LOPRESSOR
--- NOTE | 2019-11-24 18:45 | NUR ---
PT TURNED UP ON RIGHT LATERL SIDE WITH ASSIST OF 8 STAFF AND POSITIONED WITH THE LARGE WEDGE FROM THE CLINITRON BED + 5 OTHER WEDGES AND NUMEROUS PILLOWS TOLERATED WELL
--- NOTE | 2019-11-24 20:00 | NUR ---
PT RESTING IN BED WITH EYES CLOSED. ENDOTUBE PATENT, TIES SECURE, VENT SETTINGS VERIFIED AND FUNCTIONING WITHOUT DIFFICULTY. OGT PATENT, PLACMENT VERUIFIED VIA AIR BOLUS AND NEPRO INFUSING ORDERED AND JULIO WELL. LEFT IJ MLC PATENT, DRESSING INTACT, IVF'S INFUSING ORDERD WITHOUT DIFFICULTY. LEFT ART LINE PATENT, DRESSING DRY AND INTACT, FLUSHES WITH EASE. RIGHT TESSIO PATENT, DRESSING DRY AND INTACT. GARCIA PATENT FOR SCANT DEBBY URINE. NO ACUTE DISTRESS OR DISCOMFORT NOTED. NO S/S OF HYPO/HYPERGLYCEMIA NOTED.
--- NOTE | 2019-11-24 21:57 | NUR ---
MEDICATED WITH VERSED PER PRN ORDER FPR SEDATION.
--- NOTE | 2019-11-24 23:10 | NUR ---
PT BATHED AND TURNED TO RIGHT SIDE. POX INTO THE 70'S. PT SUCTIONED FOR LARGE AMOUNTS OF CLEAR SECRETIONS VIA ENDOTUBE AND ORALLY. RESP CALLED AND PT BAGGED AND SUCTIONED FOR LARGE AMOUNT OF SECRETIONS. FIO2 INCREASED TO 50%. PT POX BACK TO 94%. DR WISE NOTIFIED AND UPDATED AND ORDER TO LEAVE FIO2 AT 50% FOR THE NIGHT AND OBTAIN ABG'S IN AM.
--- NOTE | 2019-11-24 23:24 | NUR ---
22:45 CALLED TO PT'S ROOM DUE TO DESATURATION. UPON ARRIVAL, SPO2 77%. NURSING STAFF COMPLETED BATHING AND REPOSITIONING. ALVEOLAR RECRUITMENT USING AMBU BAG WITH 100% O2, LAVAGING AND SX'ING ICREASED SPO2 TO 95%. PT PLACED BACK ON VENT. FIO2 INCREASED TO 50%. SPO2 MAINTAINING AT 93-94%. DR WISE NOTIFIED OF EVENTS. INSTRUCTED TO KEEP PT ON CURRENT PARAMETERS AND AM ABG. RN AWARE.
[2019-11-25] VITALS (18 sets, daily range): BP systolic 116–171; BP diastolic 58–92
--- NOTE | 2019-11-25 00:03 | NUR ---
PT HITTING FOOT ON BED. PT ASKED IF IN PAIN AND NODDED HEAD YES. PT MEDICATED WITH DILAUDID PER PRN ORDER FOR PAIN.
--- NOTE | 2019-11-25 00:30 | NUR ---
DILAUDID EFFECTIVE FOR PAIN.
[2019-11-25 05:33] LABS: ALBUMIN 1.8 gm/dl (3.1-4.5); CREATININE 5.09 mg/dL (0.70-1.30)
[2019-11-25 05:35] LABS: POTASSIUM 3.8 mmol/L (3.5-5.1)
[2019-11-25 06:01] LABS: ABG BASE EXCESS -0.7 mmol/L (-2.0-2.0); ARTERIAL BLOOD GAS PH 7.315 (7.35-7.45)
[2019-11-25 06:24] LABS: MEAN CELL VOLUME 85.9 fl (80.0-94.0); MEAN CORPUSCULAR HGB 26.6 pg (27.0-31.0); MEAN CORPUSCULAR HGB CONC 30.9 g/dl (33.0-37.0); MEAN PLATELET VOLUME 11.2 fl (9.6-12.3); PLATELET COUNT AUTOMATED 248 10*3/uL (130-400); RED BLOOD COUNT 2.56 10*6/uL (4.50-5.90); RED CELL DISTRI WIDTH 15.7 % (0-14.5); WHITE BLOOD COUNT 9.4 10*3/uL (4.8-10.8)
--- NOTE | 2019-11-25 06:35 | NUR ---
DR MICHELLE NOTIFIED OF HGB 6.8.
[2019-11-25 07:02] LABS: BASOPHILS 1 % (0-1); PLATELET SUFFICIENCY NORMAL (NORMAL); ROULEAUX MODERATE; TOTAL CELLS COUNTED 100 #CELLS
--- NOTE | 2019-11-25 07:30 | NUR ---
MIMBEX TITRATED TO 1.5, PT WIDE AWAKE
--- NOTE | 2019-11-25 08:00 | NUR ---
NIMBEX TO 2
--- NOTE | 2019-11-25 08:12 | NUR ---
DILUADID/VERSED GIVEN FOR DEEPER SEDATION KETAMINE TO 6.5
--- NOTE | 2019-11-25 09:12 | NUR ---
VERSED AND DILUADID HAVE BEEN EFFECTIVE AND NIMBEX IS MORE EFFECTIVE AT 2
--- NOTE | 2019-11-25 11:17 | NUR ---
UNIT # 4 GIVEN BY COMPANY DOCTOR
--- NOTE | 2019-11-25 12:43 | NUR ---
INC OF MODERATE AMOUNT LIQUID BROWN BM TURNED AND POSITIONED ON RIGHT SIDE KETAMINE AT 6.5, NIMBEX AT 2 AND DIPROVAN AT 10
--- NOTE | 2019-11-25 13:13 | NUR ---
VERSED FOR SEDATION
[2019-11-25 15:46] LABS: ABG BASE EXCESS 1.3 mmol/L (-2.0-2.0); ARTERIAL BLOOD GAS PH 7.349 (7.35-7.45)
--- NOTE | 2019-11-25 17:40 | NUR ---
FIO2 DECREASED TO 40% PER DR. WISE.
--- NOTE | 2019-11-25 18:20 | NUR ---
ART LINE REMOVED PER ORDER DR KOHLER QUESTIONED TO NEED TO REMOVE ART AND HE WAS INSISTENENT THAT THE LINE BE REMOVED OVER CONCERNS OF INFECTION AND THAT HE COULD INSERT A NEW ONE TOMORROW
[2019-11-25 18:55] LABS: ABG BASE EXCESS 1.2 mmol/L (-2.0-2.0); ARTERIAL BLOOD GAS PH 7.354 (7.35-7.45)
--- NOTE | 2019-11-25 19:06 | NUR ---
Pt suctioned for scant amt of clear secretions. No secretions orally.
--- NOTE | 2019-11-25 19:15 | NUR ---
Pt decreased to 35% FiO2 per with recent ABG. Repeat ABG to be done in 2 hours.
--- NOTE | 2019-11-25 20:30 | NUR ---
1950 RESTING IN BED ON LEFT SIDE. HOB ELEVATED. SIDE RAILS UP X'S 2. RIJ TESSIO INTACT. LIJ MLC INTACT. NPO. ORAL AND EYE CARE DONE. ET SECURE TO VENT. PULSE OX 97% ON 35% FIO2. OG INTACT WITH TF PATENT AT 40CC/HR. PLACEMENT CONFIRMED WITH AIR BOLUS/AUSCULTATION. WRIST RESTRAINTS INTACT BILATERLLY. CIRCULATION ADEQUATE. GENERALIZED EDEMA CONT. GARCIA PATENT AND DRAINING CLEAR DEBBY URINE. DIPRIVAN,KETAMINE AND NIMBEX GTTS CONT FOR SEDATION. HEPARIN GTT CONT. NO DISTRESS NOTED.
[2019-11-25 21:29] LABS: ABG BASE EXCESS 0.8 mmol/L (-2.0-2.0); ARTERIAL BLOOD GAS PH 7.331 (7.35-7.45)
--- NOTE | 2019-11-25 21:30 | NUR ---
ABG results called to . No changes at this time. ABG in the morning.
[2019-11-26] VITALS (14 sets, daily range): BP systolic 108–210; BP diastolic 56–104
--- NOTE | 2019-11-26 01:01 | NUR ---
0045 INCONTINENT OF MODERATE AMOUNT BROWN LIQUID STOOL. COMPLETE BED BATH GIVEN AND LINENS CHANGED. REPOSITIONED. WILL CONT TO MONITOR.
--- NOTE | 2019-11-26 06:13 | NUR ---
ET SECURE TO VENT. RECTAL TEMP IS 100.6. SUCTIONED ORALLY FOR LARGE AMOUNT CLEAR SECRETIONS. DIPRIVAN, KETAMINE, NIMBEX AND HEPARIN GTTS CONT. TF MAINTAINED VIA OGT. GARCIA INTACT. CONDITION GUARDED.
[2019-11-26 07:23] LABS: HEMATOCRIT 24.2 % (42.0-52.0); MEAN CELL VOLUME 86.4 fl (80.0-94.0); MEAN CORPUSCULAR HGB 26.4 pg (27.0-31.0); MEAN CORPUSCULAR HGB CONC 30.6 g/dl (33.0-37.0); MEAN PLATELET VOLUME 12.1 fl (9.6-12.3); PLATELET COUNT AUTOMATED 285 10*3/uL (130-400); RED CELL DISTRI WIDTH 15.8 % (0-14.5); WHITE BLOOD COUNT 9.9 10*3/uL (4.8-10.8)
[2019-11-26 07:39] LABS: POTASSIUM 3.5 mmol/L (3.5-5.1)
[2019-11-26 07:55] LABS: CREATININE 4.66 mg/dL (0.70-1.30)
[2019-11-26 08:16] LABS: ABG BASE EXCESS 1.1 mmol/L (-2.0-2.0); ARTERIAL BLOOD GAS PH 7.329 (7.35-7.45)
[2019-11-26 08:17] LABS: PLATELET SUFFICIENCY NORMAL (NORMAL); ROULEAUX MARKED; TOTAL CELLS COUNTED 100 #CELLS
--- NOTE | 2019-11-26 10:41 | NUR ---
0747 aLL SEDATION AND PARYLIC TO OFF. Awake and alert w/i minutes. Able to nod head and squeeze hand. Attempting to sit up. Sclera reddened , oral mucosa moist, large amt clear oral secretions. Oral care given. OGT secure . Tessio to RIJ. MLC to LIJ dressings d/i. Abdomen soft w/ active peristalsis. Izquierdo cath patent draining greenish urine. 0820 Shaking rails , moving all extremities. Sedation/ and paralytic resumed. Bed set to rotation mode and percussion alt w/ vibration q2h. Passive ROM done at bedside. 1035 Dr. Perez in to evlate.
--- NOTE | 2019-11-26 13:50 | NUR ---
1120 Dr. Mejia in to [facility], Orders recieved for bedside bronchoscopy , A-Line placement and weaning off of sedatives and paralytics. 1123 Premission was obtained for Both [facility] and a-Line from Mother Cherie Patrick. Propofol was titrated to off. Nimbex titrated to 1mcg No resident available for A-Line placement . Rn Case Manager aware and Surgerical RN and ACTUARIAL ASSISTANT were called. 1211 Bedside bronchoscopy performed at bedside. w/ Andreina RN 1245 A-line was placed by Zully VALDEZ w/o difficulty. Post insertion, pt. was noted to be hypertensive. w/ SBP > 200. Nimbex was titrated to off.
[2019-11-26 13:59] LABS: ABG BASE EXCESS -1.1 mmol/L (-2.0-2.0); ARTERIAL BLOOD GAS PH 7.313 (7.35-7.45)
--- NOTE | 2019-11-26 14:50 | NUR ---
RESULTS OF ABG CALLED TO DR WISE. T.O./R.B. TO DECREASED PEEP TO 14 AND REPEAT ABG IN 2HRS.
--- NOTE | 2019-11-26 15:07 | NUR ---
PEEP DECREASED TO 14 PER DRS ORDER. RN AWARE.
--- NOTE | 2019-11-26 15:17 | NUR ---
1330 Restless , awake, hypertensive. Versed given w/o much effect. Dr. Holliday in aware of htn, orders recieved 1404 Continues to be restless and hypertensive. Dilaudid , Versed and apressoline given. calmy resting w/i minutes. BP currently 124/63 remains resting quietly.
[2019-11-26 17:15] LABS: ABG BASE EXCESS -0.3 mmol/L (-2.0-2.0); ARTERIAL BLOOD GAS PH 7.347 (7.35-7.45)
--- NOTE | 2019-11-26 17:27 | NUR ---
1540 AWAKE AND ALERT . BOUNCing legs off of bed. Incontinent of loose stool. [place] care given and repositioned. Continued wiggling about , medicated for restlessness. 1616. Medication ineffective as pt. continues to bounce legs about and squirm in bed. asked if he needed to poop , shook his head no. re- medicated for restlessnes. Re-positioned to rt. side. all bony prominences padded. 165 Trying to sit up, kicking the foot of the bed and pulling against restraint until loosened. re- med for restlessness, 165 Dr. Mejia was called and updated on pt. behavioral condition. Orders were recieved. 175 haldol was given and Nimbex is pending a re-start. Resting quietly at this time.
--- NOTE | 2019-11-26 17:33 | NUR ---
Dr. Mejia was notified of recent ABG and orders were recieved.
[2019-11-26 20:06] LABS: ABG BASE EXCESS -1.1 mmol/L (-2.0-2.0); ARTERIAL BLOOD GAS PH 7.319 (7.35-7.45)
--- NOTE | 2019-11-26 20:20 | NUR ---
1950 RESTING IN BED WITH HOB ELEVATED. SIDE RAILS UP X'S. REMAINS NPO. KETAMINE AND NIMBEX GTTS CONT FOR SEDATION. HEPARIN GTT CONT. LIJ MLC INTACT. RIJ TESSIO INTACT. L RADIAL ART LINE INTACT. ZEROED AND CALIBRATED WITH GOOD WAVEFORM AND DYNAMIC RESPONSE. FLUSHES WELL. NPO. ORAL CARE DONE. LARGE AMOUNT ORAL SECRETIONS NOTED. ET SECURE TO VENT. SUCTIONED FOR SCANT. PULSE OX 93% ON 40% FIO2 VIA VENT. OGT INTACT. TF PATENT AT 40CC/HR. PLACEMENT CONFIRMED WITH AIR BOLUS/AUSCULTATION. WRIST RESTRAINTS INTACT BILATERALLY. CIRCULATION ADEQUATE. GARCIA PATENT AND DRAINING DARK GREEN TINGED URINE. HALDOL GIVEN IV ORDERED 2019 DR. WISE CALLED WITH RECENT ABG RESULTS PER RESP THERAPY.
--- NOTE | 2019-11-26 20:26 | NUR ---
APRESOLINE IV AT 1951 FOR BP OF 180/77. BP DOWN TO 140/70 AFTER THIS. WILL CONT TO MONITOR.
--- NOTE | 2019-11-26 21:41 | NUR ---
2134 MEDICATED WITH VERSED 5MG IV FOR RESTLESSNESS AND DILAUDID 1MG IV FOR ELEVATED BP AND HR. WILL MONITOR.
--- NOTE | 2019-11-26 22:12 | NUR ---
EARLIER MEDS EFFECTIVE.
--- NOTE | 2019-11-26 22:15 | NUR ---
MEDICATED WITH PERCOCET PO FOR C/O'S CHRONIC BACK PAIN AND KLONIPIN FOR REST. WILL MONITOR.
--- NOTE | 2019-11-26 23:10 | NUR ---
2304 KICCKING LEGS AND MOVING ARMS, BP ELEVATED AT 200/108. TOO EARLY FOR APRESOLINE IV. VERSED 5MG IV GIVEN AND ROUTINE HALDOL IV. WILL MONITOR.
[2019-11-27] VITALS (15 sets, daily range): BP systolic 114–182; BP diastolic 56–95
--- NOTE | 2019-11-27 00:12 | NUR ---
VERSED IV AT 0000 FOR CONT AGITATION. SL EFFECTIVE.
--- NOTE | 2019-11-27 00:16 | NUR ---
DR. HDZ CALLED WITH PT CONT ELEVATED BP. INSTRUCTED TO CALL NEPHROLOGY FOR FURTHER ORDERS.
--- NOTE | 2019-11-27 00:18 | NUR ---
DR. DAUGHERTY BEEPED FOR ELEVATED BP.
--- NOTE | 2019-11-27 00:19 | NUR ---
DR. DAUGHERTY ANSWWERED - ORDERS RECEIVED.
--- NOTE | 2019-11-27 00:43 | NUR ---
LABETOLOL 20MG IV GIVEN FOR A BP OF 200/104. WILL MONITOR.
--- NOTE | 2019-11-27 00:55 | NUR ---
VERSED IV FOR AGITATION AND ELEVATED BP. BP IS NOW 180/97.
--- NOTE | 2019-11-27 02:01 | NUR ---
VERSED 5MG IV FOR AGITATION EVIDENCED BY PT TWITCHING. EFFECTIVE.
--- NOTE | 2019-11-27 02:38 | NUR ---
LABETOLOL 20MG IV GIVEN FOR BP OF 181/87. WILL MONITOR.
--- NOTE | 2019-11-27 03:44 | NUR ---
0330 MEDICATED WITH VERSED FOR AGITATION, DILAUDID FOR PAIN, ROUTINE HALDOL AND APRESOLINE FOR BP 0F 181/87. 0344 BP IS NOW COMING DOWN. 140/75. WILL CONT TO MONITOR.
[2019-11-27 05:53] LABS: HEMATOCRIT 23.8 % (42.0-52.0); MEAN CELL VOLUME 87.5 fl (80.0-94.0); MEAN CORPUSCULAR HGB 26.8 pg (27.0-31.0); MEAN CORPUSCULAR HGB CONC 30.7 g/dl (33.0-37.0); MEAN PLATELET VOLUME 11.8 fl (9.6-12.3); PLATELET COUNT AUTOMATED 302 10*3/uL (130-400); RED BLOOD COUNT 2.72 10*6/uL (4.50-5.90); RED CELL DISTRI WIDTH 15.8 % (0-14.5); WHITE BLOOD COUNT 10.8 10*3/uL (4.8-10.8)
[2019-11-27 06:14] LABS: CREATININE 5.99 mg/dL (0.70-1.30); POTASSIUM 3.6 mmol/L (3.5-5.1)
--- NOTE | 2019-11-27 06:18 | NUR ---
0600 BP ELEVATED AGAIN AT 181/90. AGITATED. VERSED 5MG IV AND LABETOLOL IV GIVEN. 0618 BP 129/63, VERSED EFFECTIVE. ALL LINES SECURE. ET SECURE TO VENT. PULSE OX 93% ON 40% FIO2. RECTAL TEMP 99.1. NO DISTRESS NOTED. DAILYSIS RN HERE.
--- NOTE | 2019-11-27 06:46 | NUR ---
HEMA DAMICO [id number] Please refer to the physician's history and physical for past medical history, comorbid conditions, and allergies. Diagnosis: ACUTE RESPIRATORY FAILURE WITHY HYPOXIA ACUTE Khadar Score: 12,MODERATE RISK WOUND DESCRIPTIONS: Wound Number: 1 Location of the wound: Left upper arm Thickness: Partial Size: 10.5cm x 5.0cm x <0.1cm Tunneling: none Undermining: none Sinus Tract: none Presence of Exudate: none Amount: None Color: Red Odor: None Periwound Skin Appearance: warmth, firmness Wound edges: closed Pain (associated with wound): none at time of assessment How does patient state this happened? pt unable to state how this happened Wound Number: 2 Location of the wound: Left lower quadrant Thickness: Partial Size: 5.0cm x 7.0cm x <0.1cm Tunneling: none Undermining: none Sinus Tract: none Presence of Exudate: none Amount: None Color: Red Odor: None Periwound Skin Appearance: warmth, firmness Wound edges: closed Pain (associated with wound): none at time of assessment How does patient state this happened? pt unable to state how this happened Wound Number: 3 Location of the wound: left medial aspect of foot Type of wound: stage 2 Thickness: Partial Size: 1.1cm x 2.5cm x <0.1cm Tunneling: none Undermining: none Sinus Tract: none Presence of Exudate: none Amount: None Color: [place] Odor: None Periwound Skin Appearance: Normal Wound edges: intact serum filled blister Pain (associated with wound): none at time of assessment How does patient state this happened? pt unable to state how this happened Surface the patient is resting on: XPRT SKIN PREVENTION RECOMMENDATION: 1. Pressure redistribution support surface as appropriate 2. Elevate heels 3. Remove boots/TEDS every shift and reapply 4. Head of bed 30 degrees as tolerated 5. Assess nutrition and hydration 6. Manage moisture 7. Avoid the use of containment devices while in bed 8. Use absorptive products on surfaces limit layers of linens on bed 9. Turn and reposition every 1-2 hours in bed and every 1 hour in chair as tolerated 10. Weight shifts every 15 minutes while up in chair 11. Offloading with pillows or device to keep heels elevated off bed 12. Monitor skin at least every shift 13. Inspect under medical devices twice a day WOUND TREATMENT RECOMMENDATIONS: Stage 2 guidelines: Apply sureprep to left medial aspect of foot and cover with optifoam gentle every 2 days and prn for soiling Heel raiser pro boots to bilateral feet while in bed
[2019-11-27 06:56] LABS: PLATELET SUFFICIENCY NORMAL (NORMAL); POLYCHROMASIA SLIGHT; ROULEAUX MODERATE; TOTAL CELLS COUNTED 100 #CELLS
--- NOTE | 2019-11-27 07:37 | NUR ---
Shift chart check completed.24 HR chart check completed. Hemodialysis is in progress.
[2019-11-27 07:38] LABS: ABG BASE EXCESS 0.3 mmol/L (-2.0-2.0); ARTERIAL BLOOD GAS PH 7.313 (7.35-7.45)
--- NOTE | 2019-11-27 08:00 | NUR ---
ON ASSESSMENT PATIENT REMAINS ORALLY INTUBATED, ON VENTILATOR, HEMODIALYSIS IN PROCESS WITH DIALYSIS NURSE AT THE BEDSIDE. HEPARIN DRIP CONTINUES AT 21UNITS/KG/MIN WITH THERAPEUTIC PTT, KETAMINE AT 6.5MCG/KG AND NIMBEX AT 2MCG/KG. HE'S QUIET WITH NO OBVIOUS SIGNS OF PAIN OR DISTRESS. WHEN I SPEAK TO HIM, HIS HAND ATTEMPTS TO GRASP MINE. SEDATIN VACATION NOT DONE, HEMODIALYSIS IN PROGRESS. NEPRO TUBE FEEDINGS CONTINUE AT 40/HR. SEE ALL APPROPRIATE INTERVENTIONS.
--- NOTE | 2019-11-27 08:07 | NUR ---
Dr. Junior notified of wound care recommendations.
--- NOTE | 2019-11-27 08:32 | NUR ---
IV APRESOLINE FOR BP CONSISTENTLY >180.
--- NOTE | 2019-11-27 09:32 | NUR ---
NO OBVIOUS DECREASE IN BP FROM EARLIER APRESOLINE. LABETALOL WAS NOT GIVEN DIALYSIS NURSE SAID WOULD BE DIALIZED. 10AM DOSES OF PROTONIX, ZOSYN AND NORVASC HELD, ALSO DUE TO DIALYSIS AND WILL BE GIVEN WHEN TREATMENT COMPLETE.
--- NOTE | 2019-11-27 09:40 | NUR ---
PEEP DECREASED TO +12 PER PHYSICIAN ORDER, ABG ORDERED 2 HOURS POST CHANGE.
--- NOTE | 2019-11-27 09:40 | NUR ---
PEEP TO [address] BILLIE MANRIQUE.
--- NOTE | 2019-11-27 11:10 | NUR ---
HEMODIALYISIS COMPLETE WITH REPORTED 5KG REMOVED. PHONE UPDATE HAS BEEN GIVEN TO HIS STEP SISTER.
--- NOTE | 2019-11-27 11:48 | NUR ---
IV LABETALOL FOR BP >180.
[2019-11-27 12:02] LABS: ABG BASE EXCESS 1.6 mmol/L (-2.0-2.0); ARTERIAL BLOOD GAS PH 7.344 (7.35-7.45)
--- NOTE | 2019-11-27 12:12 | NUR ---
LABETALOL EFFECTIVE. BP 114/60 ARTERIAL.
--- NOTE | 2019-11-27 13:15 | NUR ---
ABG'S WERE DONE BY RESPIRATORY, CALLED TO DR WISE AND PEEP WAS DECREASED TO 10CM PER HIS ORDER.
--- NOTE | 2019-11-27 13:26 | NUR ---
IV VERSED FOR HYPERTENSION, PRESUMED ANXIETY.
--- NOTE | 2019-11-27 13:45 | NUR ---
GERMAN SPOKE WITH THE PATIENTS MOTHER JOCELYN. SHE STATED SHE WOULD LIKE TE PATENT REFERRED TO [facility]. GERMAN WILL EMAIL REFERRAL DUE TO ITS SIZE TO [email or web address].
--- NOTE | 2019-11-27 13:56 | NUR ---
VERSED EFFECTIVE TO ALLEVIATE ANXIETY WHILE REPOSITIONING.
--- NOTE | 2019-11-27 14:40 | NUR ---
PT HAD BEEN INCONTINENT LARGE AMOUNT ORANGE/JEONG LIQUID BM. MICHAEL CARE AND REPOSITIONED. DR RODAS HAS VISITED.
--- NOTE | 2019-11-27 14:45 | NUR ---
11:50 PEEP DECREASED TO [address] WISE. ABG TO FOLLOW IN 2 HRS.
--- NOTE | 2019-11-27 15:12 | NUR ---
DR CHAUDHARI HERE. PLAN IS FOR INTERVENTIONAL RADIOLOGY TO PLACE TUNNELED HEMODIALYSIS CATHETER TOMORROW AFTERNOON AT 2PM. PT TO BE NPO 8 HOURS PRIOR AND TO STOP THE HEPARIN [address] CHAUDHARI WANTS TO MAKE SURE INFECTIOUS DISEASE IS OKAY WITH THIS PLAN ALSO. ID HAS NOT ROUNDED YET.
--- NOTE | 2019-11-27 15:44 | NUR ---
DR LAZARO HAS VISITED, GOYO WITH PLAN FOR TUNNELED HEMODIALYSIS CATHETER TOMORROW. HE WOULD ALSO LIKE THE MLC CHANGED.
[2019-11-27 15:47] LABS: ABG BASE EXCESS 1.2 mmol/L (-2.0-2.0); ARTERIAL BLOOD GAS PH 7.325 (7.35-7.45)
--- NOTE | 2019-11-27 15:50 | NUR ---
DR KUMAR NOTIFIED THAT ID WOULD ALSO LIKE THE [facility]/MLC CHANGED LOCATION/CATHETER.
--- NOTE | 2019-11-27 16:18 | NUR ---
16:00 PEEP DECREASED 8. ABG IN 2 HRS
--- NOTE | 2019-11-27 17:16 | NUR ---
PT'S MOTHER CALLED, CONSENT FOR TUNNELED DIALYSIS CATHETER TOMORROW.
[2019-11-27 18:07] LABS: ABG BASE EXCESS 2.2 mmol/L (-2.0-2.0); ARTERIAL BLOOD GAS PH 7.33 (7.35-7.45)
--- NOTE | 2019-11-27 18:35 | NUR ---
REPOSITIONED TO HIS RIGHT AND SINCE THEN HIS PULSE OX HAS BEEN 88-90. DR WISE CALLED IN, UPDATED AND ORDERS RECEIVED.
--- NOTE | 2019-11-27 19:55 | NUR ---
1954 VERSED GIVEN FOR RESTLESSNESS, SHAKING HEAD SIDE TO SIDE. WAS EFFECTIVE IMMEDIATELY.
--- NOTE | 2019-11-27 21:55 | NUR ---
TYLENOL FOR LOW GRADE TEMP 100.
--- NOTE | 2019-11-27 23:24 | NUR ---
VERSED FOR RESTLESSNESS IMMEDIATELY EFFECTIVE.
[2019-11-28] VITALS (20 sets, daily range): BP systolic 121–208; BP diastolic 60–100
--- NOTE | 2019-11-28 | NUR ---
COMPLETE BATH AND BED LINEN CHANGE DONE. PT PLACED ON HIS SIDE WITH HOB ELEVATED.
--- NOTE | 2019-11-28 02:05 | NUR ---
DILAUDID GIVEN FOR APPEARANCE OF DISCOMFORT WITH TURNING PT EVIDENCED BY GRIMACING AND ELEVATED HR.
--- NOTE | 2019-11-28 02:15 | NUR ---
DILAUDID APPEARS TO BE EFFECTIVE....PT NOT GRIMACING, BODY RELAXED.
--- NOTE | 2019-11-28 05:44 | NUR ---
OGT CLOGGED DESPITE EFFORTS TO CLEAR IT. IT WAS REMOVED AND A NEW #16 SALEM SUMP PUMP WAS INSERTED WITHOUT DIFFICULTY AND PLACEMENT WAS CONFIRMED BY AIR BOLUS/AUSCULTATION OVER EPIGASTRIC AREA. WILL CONFIRM WITH XRAY PER POLICY TODAY.
--- NOTE | 2019-11-28 05:47 | NUR ---
PT IS NPO FOR TUNNELED HEMODIALYSIS CATHETER INSERTION TODAY.
[2019-11-28 05:59] LABS: ALBUMIN 2.3 gm/dl (3.1-4.5); CREATININE 5.06 mg/dL (0.70-1.30); POTASSIUM 3.4 mmol/L (3.5-5.1); TOTAL PROTEIN 7.1 gm/dL (6.4-8.2)
--- NOTE | 2019-11-28 05:59 | NUR ---
PT CHECKED FOR INCONTINENCE. VSS. PULSE OX 90%. PT APPEARS COMFORTABLE AND SEDATED.
[2019-11-28 06:15] LABS: HEMATOCRIT 26.4 % (42.0-52.0); MEAN CELL VOLUME 88.6 fl (80.0-94.0); MEAN CORPUSCULAR HGB 26.2 pg (27.0-31.0); MEAN CORPUSCULAR HGB CONC 29.5 g/dl (33.0-37.0); MEAN PLATELET VOLUME 11.4 fl (9.6-12.3); PLATELET COUNT AUTOMATED 316 10*3/uL (130-400); RED BLOOD COUNT 2.98 10*6/uL (4.50-5.90); RED CELL DISTRI WIDTH 15.9 % (0-14.5)
[2019-11-28 06:49] LABS: INTERNATIONAL NORM RATIO 1.1 (2.0-3.5)
[2019-11-28 06:51] LABS: ACT PARTIAL THROMBO TIME 72.3 SECONDS (20.0-32.1)
--- NOTE | 2019-11-28 07:20 | NUR ---
Shift chart check completed.24 HR chart check completed.
[2019-11-28 07:22] LABS: BASOPHILS 2 % (0-1); PLATELET SUFFICIENCY NORMAL (NORMAL); ROULEAUX MODERATE; TOTAL CELLS COUNTED 100 #CELLS
[2019-11-28 07:27] LABS: ABG BASE EXCESS 1.2 mmol/L (-2.0-2.0); ARTERIAL BLOOD GAS PH 7.352 (7.35-7.45)
--- NOTE | 2019-11-28 08:18 | NUR ---
3 NEW 20 GUAGE PERIPHERAL IV SITES OBTAINED PER ORDER. LIJ SITE IS BLOODY. INCONTINENT LARGE AMOUNT ORANGE/BROWN BM. VERSED GIVEN FOR THE DISCOMFORT FROM CHANGING THE BED.
--- NOTE | 2019-11-28 08:30 | NUR ---
EARLIER VERSED WAS IMMEDIATELY EFFECTIVE.
--- NOTE | 2019-11-28 09:31 | NUR ---
DR LAZARO ET AL HAVE VISITED. TUNNELED DIALYSIS CATHETER PLACEMENT IS CANCELLED UNTIL WEDNESDAY. INTERVENTIONAL RADIOLOGY HAS BEEN NOTIFIED.LIJ MLC HAS BEEN REMOVED INTACT. DIGITAL PRESSURE X 5 MINUTES AND DRY DRESSING APPLIED. STAT PORTABLE CXR DONE FOR OGT PLACEMENT. DR CHAUDHARI HAS VISITED. UPDATED ON PLAN OF CARE. REMAINS ORALLY INTUBATED, ON VENTILATOR. KETAMINE AT 6.5MCG/KG/MIN AND NIMBEX AT 2MCG/KG/MIN. THE HEPARIN DRIP HAD BEEN OFF ONLY 30 MINUTES AND RESUMED AT THE PREVIOUS RATE OF 21UNITS/KG/HR. SEE ALL APPROPRIATE INTERVENTIONS.
--- NOTE | 2019-11-28 10:28 | NUR ---
PESTICIDE CHEMIST ASKED DELVIN IF PATIENT COULD BE LOOKED AT FOR VIBRA-TRUMBULL.
--- NOTE | 2019-11-28 10:34 | NUR ---
SEDATION VACATION. PT NODDING HIS HEAD, OPENING HIS EYES. SQUEEZING MY HAND ON COMMAND. HIS RESPIRATIONS HAVE INCREASED. HIS BP >[address] WISE HAS VISITED.
--- NOTE | 2019-11-28 10:48 | NUR ---
PT WAS AGITATED, TRYING TO SIT UP, GESTURING FOR A DRINK OF WATER. HR ELEVATED TO 110, TACHYPNEIC 28 BPM, GRASPING AT MY HAND. DR WISE NOTIFIED. AT 1042 IV VERSED 5MG GIVEN PER HIS DIRECTION, LEAVING THE KETAMINE AND NIMBEX OFF. THIS WAS EFFECTIVE IMMEDIATELY AND HIS HR 99, RR 26, BP 130/70.
--- NOTE | 2019-11-28 10:52 | NUR ---
PRIOR TO SEDATION VACATION HIS ETT WAS PULLED BACK TO 25 AT THE LIP.
--- NOTE | 2019-11-28 10:56 | NUR ---
DR WISE NOTIFIED OF RESULTS OF VERSED. ORDERS RECEIVED.
[2019-11-28 11:08] LABS: ACID FAST SPEC PROCESSING Concentration (.)
--- NOTE | 2019-11-28 11:24 | NUR ---
GERMAN RECEIVED VOICE MAIL FROM [employer]. SHE ASKED FOR THE PATIENTS DEMOGRAPHICS TO BE SENT OVER TO VERIFY INSURANCE. HULL INSPECTOR FAXED DEMOGRAPHICS TO [phone].
--- NOTE | 2019-11-28 11:24 | NUR ---
10:50 ETT REPOSITIONED TO 25 CM AT THE LIP BY RN PER DR WISE. BBSs EQUAL. PT'S SEDATION STOPPED PER DR WISE. PT BECAME ANXIOUS AND SOB WITH RR CLOSE TO 40. SPO2 DROPPED TO 86%. FIO2 INCREASED TO 50%. RN CONTACTED DR WISE. PER DR WISE PT SEDATED WITH VERSED BY RN. PT RELAXED. SPO2 INCREASED TO 94%. FIO2 DECREASED TO 45%. SPO2 91% DR WISE AWARE OF FIO2 CHANGE. WILL MAKE ATTEMPTS TO WEAN FIO2 TO 40%.
--- NOTE | 2019-11-28 11:28 | NUR ---
PT CONTINUES TO REST EASILY. KETAMINE HAS BEEN RESTARTED AT 3MCG/KG/MIN.
--- NOTE | 2019-11-28 13:03 | NUR ---
PT AWAKE AND BP INSTANTLY TO >200. HE BECAME RESTLESS, REACHING FOR THE ETT. ATTEMPT TO EXPLAIN. PT NODS HIS HEAD, MAKES EYE CONTACT AND THEN REACHES AGAIN FOR ETT. IV VERSED AT 1300 GIVEN.
--- NOTE | 2019-11-28 13:15 | NUR ---
VERSED RAPIDLY EFFECTIVE.
--- NOTE | 2019-11-28 13:46 | NUR ---
PT RESTING EASILY AT PRESENT SINCE EARLIER VERSED.
--- NOTE | 2019-11-28 14:30 | NUR ---
PT INCONTINENT OF STOOL. HE'S VERY AGITATED. KEPT REACHING FOR THE ETT. GAVE HIM OPPORTUNITY TO FEEL THE TUBE, SCRATCH HIS FACE BUT HE WRAPS HIS FINGERS AROUND THE TUBE AND TRIES TO PULL. HE WAS TURNED SIDE TO SIDE AND ATTEMPTED TO PULL HIM UP IN BED, BUT HE'S NOT COOPERATIVE AT ALL IN SPITE OF GIVING US THUMBS UP SIGNS. IV VERSED REPEATED, RAPIDLY EFFECTIVE, AND KETAMINE DRIP INCREASED TO 4MCG/KG/MIN.
--- NOTE | 2019-11-28 15:01 | NUR ---
DR RODAS VISITED. HE ASKED PT IF HE WAS HAVING PAIN AND PT NODDED. DILAUDID IV GIVEN.
--- NOTE | 2019-11-28 15:03 | NUR ---
PER DR RODAS PLAN IS FOR HEMODIALYSIS TOMORROW, AFTER WHICH THE VASCATH SHOULD BE REMOVED, THEN PT WILL HAVE HIS TUNNELED DIALYSIS CATHETER ON WEDNESDAY, PLANNED.
--- NOTE | 2019-11-28 15:07 | NUR ---
INTERVENTIONAL RADIOLOGY NOTIFIED OF DR RODAS'S WANTING THE VASCATH PULLED TOMORROW AFTER DIALYSIS.
--- NOTE | 2019-11-28 15:10 | NUR ---
IV DILAUDID RAPIDLY EFFECTIVE.
--- NOTE | 2019-11-28 15:16 | NUR ---
SPO2 94% ON 45% O2. FIO2 DECREASED TO 40% RN AWARE.
--- NOTE | 2019-11-28 15:26 | NUR ---
VERSED IV FOR AGITATION, PULLING AGAINST RESTRAINTS AND REACHING FOR ETT.
--- NOTE | 2019-11-28 15:37 | NUR ---
VERSED QUICKLY EFFECTIVE BUT NOT SUSTAINED. HE'S MOVING ALL EXTREMITIES, ATTEMPTING TO UNTIE THE RESTRAINTS, KICKING.
--- NOTE | 2019-11-28 15:59 | NUR ---
KETAMINE TURNED OFF TO SEE IF PT LESS AGITATED WITH IT. HE NODDED HE WANTED THE TV ON AND THIS HAS BEEN PROVIDED. SITTING AT HIS BEDSIDE PROVIDING FREQUENT REASSURANCES.
--- NOTE | 2019-11-28 16:18 | NUR ---
VERSED IV FOR CONTINUED AGITATION, QUICKLY EFFECTIVE.
--- NOTE | 2019-11-28 16:25 | NUR ---
DR KUMAR NOTIFIED OF DR RODAS'S PLAN TO REMOVE VASCATH TOMORROW AFTER DIALYSIS AND LET PT BE CENTRAL LINE FREE OVERNIGHT. ALSO UPDATED HER ON PT'S AGITATION AND ANXIETY SINCE DISCONTINUING THE NIMBEX THIS AM.
--- NOTE | 2019-11-28 16:34 | NUR ---
RESTING QUIETLY, AT PRESENT, SINCE LAST VERSED.
[2019-11-28 16:54] LABS: ABG BASE EXCESS 0.1 mmol/L (-2.0-2.0); ARTERIAL BLOOD GAS PH 7.349 (7.35-7.45)
--- NOTE | 2019-11-28 17:00 | NUR ---
AGITATED, KICKING HIS LEGS, HITTING HIMSELF IN THE STOMACH, OR KNOCKING ON SIDERAILS. I AM SITTING AT HIS BEDSIDE, HOLDING HIS HAND, GIVING REASSURANCE. INTERVENTIONAL RADIOLOGY CALLED, ASKING FOR DR RODAS'S DIRECT NUMBER. I OBTAINED THIS FROM DR KUMAR AND GAVE IT TO RADIOLOGY. DR WEST AND DR RODAS HAVE TALKED ABOUT LEAVING [facility] UNTIL WEDNESDAY AND WILL BE ADDRESSED TOMORROW BY DR RODAS, AFTER HEMODIALYSIS.
--- NOTE | 2019-11-28 17:25 | NUR ---
DR WISE WAS MADE AWARE OF PT'S AGITATION, TRYING TO PULL THE ETT, DESATURATING. ABG'S WERE DONE AND HE HAD ME CALL HIM ON I-PAD WITH RESPIRATORY THERAPY. PLACED PATIENT ON C-PAP 10, PS-15. WE WILL DO ABG'S IN AN HOUR. REASSURANCES TO PT.
--- NOTE | 2019-11-28 17:46 | NUR ---
RESTING QUIETLY AT THIS TIME ON C-PAP/PS. HR 80, PULSE OX 92%, BP 140/66
--- NOTE | 2019-11-28 17:49 | NUR ---
17:[address] WISE, VENT PARAMETERS CHANGED TO CPAP 10 PS 15 45%. PT TOLERATING VERY WELL. RESPS BECAME EASY AND UNLABORED. PT CALM.ABG TO FOLOW IN 2 HRS.
--- NOTE | 2019-11-28 18:11 | NUR ---
PT IS THE MOST RELAXED/RESTING SINCE CPAP THAN HE HAS BEEN ALL DAY. LAST VERSED WAS AT 1625. LAST SCHEDULED HALDOL WAS AT 1716. KETAMINE HAS BEEN OFF SINCE 4PM.
--- NOTE | 2019-11-28 18:22 | NUR ---
PT CONTINUES TO REST EASILY, ASLEEP.
--- NOTE | 2019-11-28 19:10 | NUR ---
CHART CHECK COMPLETE.
[2019-11-28 19:30] LABS: ABG BASE EXCESS -0.7 mmol/L (-2.0-2.0); ARTERIAL BLOOD GAS PH 7.347 (7.35-7.45)
--- NOTE | 2019-11-28 19:39 | NUR ---
RESP DEPT NOTIFIED DR WISE OF ABG'S. PT RESTING CALMLY. VSS. PLAN IS TO REMAIN ON CPAP 10, PS 15 TONIGHT PT TOLERATES.
--- NOTE | 2019-11-28 22:30 | NUR ---
MEDICATED WITH DILAUDID WHEN PT SHAKES HEAD YES TO QUESTION OF PAIN.
--- NOTE | 2019-11-28 23:00 | NUR ---
PT NODS WHEN ASKED IF DILAUDID WAS HELPFUL WITH DISCOMFORT.
--- NOTE | 2019-11-28 23:45 | NUR ---
COMPLETE BATH AND BED LINEN CHANGE DONE. PT VERY UNCOOPERATIVE AND AGITATED DURING THIS. HE KEPT ATTEMPTING TO REACH UP TOWARD HIS ETT. THIS TOOK 6 PEOPLE TO ACCOMPLISH THIS.
[2019-11-29] VITALS (8 sets, daily range): BP systolic 126–178; BP diastolic 68–85
--- NOTE | 2019-11-29 00:20 | NUR ---
PT, AGAIN, WAS INCONTINENT OF EXTREMELY LG AMT OF BROWN LIQUID STOOL. AGAIN, WITH ASSISTANCE OF 6 PEOPLE, WE DID MICHAEL CARE AND CHANGED LINENS AND GOWN. AGAIN, PT WAS UNCOOPERATIVE; STICKING HIS HANDS IN OUR POCKETS, HITTING SIDERAILS, AND REACHING (VERY STRONGLY) UP AT ETT DIRECTION. EXPLANATIONS GIVEN TO HIM CLEARLY EXPLAINING WHY HE SHOULD NOT BEHAVE IN THAT MANNER.
--- NOTE | 2019-11-29 02:51 | NUR ---
PT AGAIN HAD AN EXTREMELY LG BROWN LIQUID STOOL. MICHAEL CARE AND UNDER PADS CHANGED.
--- NOTE | 2019-11-29 02:55 | NUR ---
DR KOHLER HERE. DISCUSSES PLAN OF CARE WITH PT PT IS WIDE AWAKE.
--- NOTE | 2019-11-29 04:35 | NUR ---
DILAUDID AND ZOFRAN GIVEN FOR STOMACH DISCOMFORT AND DISTRESS.
--- NOTE | 2019-11-29 05:00 | NUR ---
DILAUDID AND ZOFRAN EFFECTIVE PER PT.
[2019-11-29 05:43] LABS: ALBUMIN 2.3 gm/dl (3.1-4.5); CREATININE 6.42 mg/dL (0.70-1.30); POTASSIUM 2.9 mmol/L (3.5-5.1); TOTAL PROTEIN 6.7 gm/dL (6.4-8.2)
[2019-11-29 06:15] LABS: HEMATOCRIT 24.3 % (42.0-52.0); MEAN CELL VOLUME 87.4 fl (80.0-94.0); MEAN CORPUSCULAR HGB 26.6 pg (27.0-31.0); MEAN CORPUSCULAR HGB CONC 30.5 g/dl (33.0-37.0); MEAN PLATELET VOLUME 11.6 fl (9.6-12.3); PLATELET COUNT AUTOMATED 300 10*3/uL (130-400); RED BLOOD COUNT 2.78 10*6/uL (4.50-5.90); RED CELL DISTRI WIDTH 15.7 % (0-14.5); WHITE BLOOD COUNT 10.5 10*3/uL (4.8-10.8)
[2019-11-29 06:29] LABS: INTERNATIONAL NORM RATIO 1.1 (2.0-3.5)
[2019-11-29 06:31] LABS: ACT PARTIAL THROMBO TIME 64.3 SECONDS (20.0-32.1)
[2019-11-29 06:37] LABS: TOTAL CELLS COUNTED 100 #CELLS
[2019-11-29 06:38] LABS: PLATELET SUFFICIENCY NORMAL (NORMAL); POLYCHROMASIA SLIGHT; ROULEAUX MODERATE
[2019-11-29 07:21] LABS: ABG BASE EXCESS -0.2 mmol/L (-2.0-2.0); ARTERIAL BLOOD GAS PH 7.315 (7.35-7.45)
--- NOTE | 2019-11-29 09:23 | NUR ---
0730 Awake and alert. Banging on side rail. bouncing legs off of bed. Reoriented to place time and events of admission and intubation. VSS remains on C-Pap. Tolerating well. 0745 De-Sat, 73%. ETT and oral suctioning for large amt thick pale yellow mucous. RT was called. pt. SAT eventually returned to previous level of 92% 0800 Am meds given, Haldol effective to promote calm demeanor. Dialysis in progress. K+ level was reported to Dr. George. Po supplement and DCI supplement. 0930 Sister called in and update was given. dr. Mejia in to [facility].
--- NOTE | 2019-11-29 12:15 | NUR ---
[facility] STILL REVIEWING. DEPARTMENTAL SHIPPING CLERK FAXED UPDATES TO [facility].
--- NOTE | 2019-11-29 13:12 | NUR ---
1105 Blood noted on soft restraint, on evaulation bright bleeding was noted to A-line site. dressing was removed and insertion site was noted to be bleeding, pressure was held x 3 min. site continued to bleed at times w/ blood spraying from site. Pressure was again held x 5 minutes. Site continued to bleed. Pressure was then held for 10 mins , w/o slowing. Stat PTT was ordered and A-line was removed. Pressure held for 15 mis. Bleeding stopped and pressure dressing was applied.
[2019-11-29 13:33] LABS: ABG BASE EXCESS 4.4 mmol/L (-2.0-2.0); ARTERIAL BLOOD GAS PH 7.358 (7.35-7.45)
--- NOTE | 2019-11-29 14:34 | NUR ---
Dr. Mejia was called w/ abg and loss of A-Line. Orders were recieved. Jered Estrada APPRENTICE PAINTER NECKTIES in for A-Line placement.
--- NOTE | 2019-11-29 15:41 | NUR ---
PATIENT EXTUBATED PER THE ORDERS OF DR WISE. EXTUBATION WENT WITHOUT ANY ISSUE. TUBE CAME OUT WITH LITTLE RESISTANCE. PATIENT WAS PLACED ON BIPAP PER THE ORDERS. WITH TIDAL VOLUMES OF 600-700 ML PER BREATH. BREATH SOUNDS ARE DIMINISHED THROUGHOUT. BOOTH MANAGER PRESENT DURING EXTUBATION, ALONG WITH RN OTHER FAMILY PRESERVATION WORKER. CONTINUING TO MONITOR THE PATIENT PROGRESS. ABG AT 1730.
--- NOTE | 2019-11-29 15:50 | NUR ---
hypertensive 204/98 . APRESOLINE WAS GIVEN CURRENT BP 170/82. lying on back w/ Bi-pap secure.
--- NOTE | 2019-11-29 17:00 | NUR ---
Incontinent large loose BM. [place] care given . C-diff specimen sent. Imodium given.
[2019-11-29 17:23] LABS: ABG BASE EXCESS 2.9 mmol/L (-2.0-2.0); ARTERIAL BLOOD GAS PH 7.371 (7.35-7.45)
--- NOTE | 2019-11-29 18:02 | NUR ---
Tolerating Bi-pap fairly well, continues to bounce legs off off bed and slap on abdomen. apresoline minimally effective to reduce BP.
--- NOTE | 2019-11-29 19:54 | NUR ---
On assessment patient is drowsy, but easily arouseable. Given multiple choice questions he's able to nod that he's at the hospital. He's wearing his BIPAP, was desatting to mid 80's. With RT's help, the BIPAP mask removed and oropharynx suctioned for moderate amount of secretions. He has a fair cough effort. Arterial line intact right radial. Bilateral wrist restraints intact to keep him from taking the BIPAP apart. Heparin drip continues at 21 units/kg/min. Nepro tube feedings continue via OGT with good air bolus auscultated. Izquierdo patent small amount hema urine. HD catheter intact RIJ. Dressing removed from [facility] old MLC site. See all appropriate interventions.
--- NOTE | 2019-11-29 23:45 | NUR ---
Increased pts FiO2 from 45% to 55% to maintain SpO2 90% and above. Nurse aware.
[2019-11-30] VITALS (8 sets, daily range): BP systolic 136–193; BP diastolic 70–100
--- NOTE | 2019-11-30 00:05 | NUR ---
DILAUDID FOR DISCOMFORT FROM BIPAP MASK, CATHETER, IV'S. APRESOLINE FOR ELEVATED BP.
--- NOTE | 2019-11-30 00:33 | NUR ---
RESTING WITH HIS EYES CLOSED AND BP HAS COME DOWN TO 130'S SINCE EARLIER DILAUDID AND HYDRALAZINE.
[2019-11-30 05:55] LABS: HEMATOCRIT 26.6 % (42.0-52.0); MEAN CELL VOLUME 87.2 fl (80.0-94.0); MEAN CORPUSCULAR HGB 26.9 pg (27.0-31.0); MEAN CORPUSCULAR HGB CONC 30.8 g/dl (33.0-37.0); MEAN PLATELET VOLUME 10.4 fl (9.6-12.3); PLATELET COUNT AUTOMATED 307 10*3/uL (130-400); RED BLOOD COUNT 3.05 10*6/uL (4.50-5.90); RED CELL DISTRI WIDTH 15.8 % (0-14.5)
--- NOTE | 2019-11-30 06:02 | NUR ---
I HAVE BEEN AT PT'S BEDSIDE, GIVING FREQUENT REORIENTATION. LETTING HIS WRISTS LOOSE. HE'S TORN THE BIPAP MASK OFF, THEN SAYS HE "CAN'T BREATHE". EXPLANATIONS REITERATED. PT NODDED HE NEEDED SOMETHING FOR PAIN. DILAUDID GIVEN. LIGHTS DIMMED. PT ENCOURAGED TO REST.
--- NOTE | 2019-11-30 06:17 | NUR ---
PT MORE RELAXED AFTER IV DILAUDID. STILL NEEDS FREQUENT REMINDERS NOT TO TOUCH THE BIPAP MASK OR TUBINGS.
[2019-11-30 06:26] LABS: ALBUMIN 2.6 gm/dl (3.1-4.5); POTASSIUM 3.1 mmol/L (3.5-5.1)
[2019-11-30 06:30] LABS: CREATININE 5.02 mg/dL (0.70-1.30); TOTAL PROTEIN 7.4 gm/dL (6.4-8.2)
--- NOTE | 2019-11-30 06:32 | NUR ---
HEPARIN DRIP TURNED OFF FOR PTT 79.5. WILL BE RESUMED AT 18UNITS/KG/HR AT 0729. REPEAT PTT WILL BE NOT BE ORDERED FOR 1330 BECAUSE THE HEPARIN WILL HAVE BEEN OFF FOR PLANNED PROCEDURE THIS AFTERNOON.
[2019-11-30 06:39] LABS: BASOPHILS 1 % (0-1); POLYCHROMASIA SLIGHT; ROULEAUX MODERATE; TOTAL CELLS COUNTED 100 #CELLS
[2019-11-30 06:40] LABS: PLATELET SUFFICIENCY NORMAL (NORMAL)
[2019-11-30 07:36] LABS: ABG BASE EXCESS 2.7 mmol/L (-2.0-2.0); ARTERIAL BLOOD GAS PH 7.361 (7.35-7.45)
--- NOTE | 2019-11-30 08:36 | NUR ---
BARGE LOADER FAXED UPDATES TO [facility] FOR REVIEW. [facility] TO COMPLICATED FOR THEIR FACILITY.
--- NOTE | 2019-11-30 08:51 | NUR ---
TELEGRAPHIC TYPEWRITER MECHANIC EMAILED REFERRAL TO NAKUL AT [employer] FOR REVIEW.
--- NOTE | 2019-11-30 08:55 | NUR ---
0700 Incontinent mushy brown BM. Complete hibicleanse bath given . [place] care given. alert and co-operative. 0800 Dobboff feeding tube placed w/o difficulty. Awaiting placement verification for use. 0814 CXR complete . 8 am haldol was held as pt. was co-operative w/ care is now pulling off bi-pap and bouncing up and down in bed. Haldol was given. w/ ease of anxiety and behavior improvement.
[2019-11-30 09:21] LABS: INTERNATIONAL NORM RATIO 1.1 (2.0-3.5)
--- NOTE | 2019-11-30 09:26 | NUR ---
Dr. Walton in aware oe PTT result, Radiology was also notified of PTT < 45 Tunneled cath planned for today. Dr. Colvin and orders were recieved.
--- NOTE | 2019-11-30 10:52 | NUR ---
Medicated for restlessness. , very minimally effective. Rt here for high flow NC placement.
--- NOTE | 2019-11-30 11:46 | NUR ---
Medicated for hypertension.
--- NOTE | 2019-11-30 12:15 | NUR ---
OT NOTE Occupational therapy order received and chart reviewed. Attempted to see patient in the ICCU this PM. Discussed with nursing, patient cleared for light activity/AROM exercises at this time. Patient has possible procedure for tunnel catheter this PM. Upon entering and introductions, patient complained of "feeling like I'm going to pass out." Patient's BP 190/100. Spoke with nursing about patient's complaints, elevated BP, and will defer OT eval/therapy at this time due to BP. Will continue to follow and attempt at a later date. Thank you. Latoya Danielson, OTR/L
[2019-11-30 12:27] LABS: ABG BASE EXCESS 2.3 mmol/L (-2.0-2.0); ARTERIAL BLOOD GAS PH 7.39 (7.35-7.45)
--- NOTE | 2019-11-30 12:27 | NUR ---
PHYSICAL THERAPY Michela received chart reviewed attempted to see pt in the ICCU spoke with nursing and cleared pt for AROM/exercise at this time, pt for possible procedure of tunneled catheter for dialysis later this PM. Upon entering room and introducing self pt c/o of "feeling like I am going to pass out" HR/02 levels stable however BP 190/100. Spoke with nursing and will assess pt's complaints, also discussed concerns regarding elevated BP, per nsg pt just received meds for elevated BP. Discussed with nsg and in agreement regarding defering therapy at this time with elvevated BP, will follow at a later date. Katina Nuno PT
--- NOTE | 2019-11-30 12:28 | NUR ---
[facility] IS UNABLE TO ACCEPT THE PATIENT. [facility] FAXED UPDATES TO [facility] FOR REVIEW. [facility] IS STILL REVIEWING CLINICALS.
--- NOTE | 2019-11-30 13:46 | NUR ---
CHUTE BOSS FAXED MORE UPDATES TO [facility]
--- NOTE | 2019-11-30 13:52 | NUR ---
O2 INCREASED TO 50% ON BIPAP, DUE TO LOW SATS, STERILE PROCEDURE BEING PERFORMED, UNABLE TO DO A BIPAP CHECK.
--- NOTE | 2019-11-30 13:56 | NUR ---
prior to Dr. Alford's arrival pt. stating he can't breathe, SAT 96% reassurance offered and in and ineffective . Placed to Bi-pap @ 40% Dr. Hazel here, Tunneled dialysis catheter being placed at bedside. Dilaudid and haldol given prior to procedure. De-SAT to 85% Rt called and O2 increased to 50%. 1408 Procedure complete.
--- NOTE | 2019-11-30 14:42 | NUR ---
BIPAP O2 DECREASED TO 40% AFTER PROCEDURE, PT. RESTING QUIETLY.
--- NOTE | 2019-11-30 14:49 | NUR ---
Resting quietly at this time.
--- NOTE | 2019-11-30 16:18 | NUR ---
Resting quietly at this time.
--- NOTE | 2019-11-30 16:42 | NUR ---
rEMOVED BI-PAP. , mOIST COUGH W/ SELF ORAL SUCTION of thick yellow mucous . High flow O2 placed at 6l. Resumed peacefully sleeping .
--- NOTE | 2019-11-30 18:32 | NUR ---
Assisted to Bed escudero for moderate amt. loose stool. [place] care given and rectal temp probe removed. Pleasent and vocal. Assists w/ turning.
[2019-12-01] VITALS: BP 157/72
[2019-12-01 04:00] VITALS: BP 138/68
--- NOTE | 2019-12-01 04:35 | NUR ---
PATIENT COMPLAINTS OF NAUSEA ZOFRAN GIVEN AT THIS TIME.
[2019-12-01 06:06] LABS: HEMATOCRIT 26.4 % (42.0-52.0); MEAN CELL VOLUME 89.8 fl (80.0-94.0); MEAN CORPUSCULAR HGB 26.5 pg (27.0-31.0); MEAN CORPUSCULAR HGB CONC 29.5 g/dl (33.0-37.0); MEAN PLATELET VOLUME 11.2 fl (9.6-12.3); PLATELET COUNT AUTOMATED 275 10*3/uL (130-400); RED BLOOD COUNT 2.94 10*6/uL (4.50-5.90); RED CELL DISTRI WIDTH 16.1 % (0-14.5); WHITE BLOOD COUNT 7.3 10*3/uL (4.8-10.8)
[2019-12-01 06:26] LABS: ALBUMIN 2.6 gm/dl (3.1-4.5); CREATININE 6.55 mg/dL (0.70-1.30); POTASSIUM 3.2 mmol/L (3.5-5.1)
[2019-12-01 06:28] LABS: TOTAL PROTEIN 7.1 gm/dL (6.4-8.2)
[2019-12-01 07:05] LABS: BASOPHILS 2 % (0-1); PLATELET SUFFICIENCY NORMAL (NORMAL); TOTAL CELLS COUNTED 100 #CELLS
[2019-12-01 08:00] VITALS: BP 162/78
--- NOTE | 2019-12-01 08:00 | NUR ---
Shift chart check completed.
--- NOTE | 2019-12-01 08:38 | NUR ---
CYCLE DIRECTOR FAXING UPDATES TO [facility].
--- NOTE | 2019-12-01 10:14 | NUR ---
PHYSICAL THERAPY Pt currently receiving dialysis unavailable at this time, will follow at a later date. Katina Nuno PT
--- NOTE | 2019-12-01 10:16 | NUR ---
OT NOTE Occupational therapy order received and chart reviewed. Upon arrival this AM, patient was receiving dialysis. Will check back at a later date. Thank you. Latoya Danielson, OTR/L
--- NOTE | 2019-12-01 10:21 | NUR ---
PENDING PRECERT FOR [facility].
--- NOTE | 2019-12-01 10:43 | NUR ---
OPERATIONS SUPPORT REPRESENTATIVE SPOKE WITH THE PATIENTS MOM ABOUT [facility].
--- NOTE | 2019-12-01 10:51 | NUR ---
DIALYSIS IN PROGRESS - DR WISE HERE AND ROUNDED
[2019-12-01 12:00] VITALS: BP 142/79
--- NOTE | 2019-12-01 12:18 | NUR ---
PATIENT INSTRUCTED ON THE USE OF INCENTIVE SPIROMETRY. ABLE TO GENERATE A VOLUME OF 1000 ML.
--- NOTE | 2019-12-01 12:28 | NUR ---
Spoke to Nakul at [facility]. Precert has been started. It usually takes about 24-48 hours and she will notify CM department as soon as they receive auth. Per Nakul they will not accept the patient with an arterial line but the NGT is ok. Notified hospitalist nurse director.
--- NOTE | 2019-12-01 14:43 | NUR ---
ARTLINE REMOVED PER ORDERS. DIALYSIS COMPLETED AND PATIENT REPOSITIONED IN BED AFTER ON BSC FOR AIR.
[2019-12-01 16:00] VITALS: BP 132/63
--- NOTE | 2019-12-01 17:08 | NUR ---
DR ADRIANNA TALLEY
--- NOTE | 2019-12-01 17:11 | NUR ---
DILAUDED GIVEN FOR C/O PAIN IN STOMACH/EPIGASTRIC REGION
--- NOTE | 2019-12-01 18:14 | NUR ---
PER PATIENT PAIN IS MUCH BETTER SINCE MEDICATED.. NOW
[2019-12-01 20:00] VITALS: BP 111/64
--- NOTE | 2019-12-01 21:30 | NUR ---
PATIENT OFF BIPAP FOR BREAK HE STATED PLACED ON 6 LITERS HIGH FLOW NASAL CANULA.
--- NOTE | 2019-12-01 22:12 | NUR ---
PATIENT REQUESTING BIPAP BACK ON SO HE CAN GO TO SLEEP AT THIS TIME. PATIENT DENIES ANY NEEDS OR DISCOMFORT.
[2019-12-02] VITALS: BP 134/60
--- NOTE | 2019-12-02 03:58 | NUR ---
PATIENT GIVEN PRN DILAUDID FOR ALL OVER BODY ACHES AND PAIN. WILL MONITOR.
[2019-12-02 04:00] VITALS: BP 106/51
--- NOTE | 2019-12-02 04:29 | NUR ---
PATIENT HAS BEEN OFF THE BIPAP TONIGHT SEVERAL TIMES BUT FOR SHORT PERIODS OF TIME. PATIENT IS USUALLY TAKING IT OFF WHEN HE NEEDS TO CLEAR FLEM FROM HIS THROAT. THE PATIENT WILL THEN ASK TO GO BACK ON AFTER BEING SUCTIONED.
[2019-12-02 06:10] LABS: HEMATOCRIT 28.8 % (42.0-52.0); MEAN CELL VOLUME 88.9 fl (80.0-94.0); MEAN CORPUSCULAR HGB 26.2 pg (27.0-31.0); MEAN CORPUSCULAR HGB CONC 29.5 g/dl (33.0-37.0); MEAN PLATELET VOLUME 11.1 fl (9.6-12.3); PLATELET COUNT AUTOMATED 261 10*3/uL (130-400); RED BLOOD COUNT 3.24 10*6/uL (4.50-5.90); RED CELL DISTRI WIDTH 16.1 % (0-14.5); WHITE BLOOD COUNT 8.7 10*3/uL (4.8-10.8)
[2019-12-02 06:26] LABS: ALBUMIN 2.8 gm/dl (3.1-4.5); CREATININE 5.38 mg/dL (0.70-1.30); POTASSIUM 3.6 mmol/L (3.5-5.1); TOTAL PROTEIN 7.1 gm/dL (6.4-8.2)
[2019-12-02 07:13] LABS: TOTAL CELLS COUNTED 100 #CELLS
[2019-12-02 07:14] LABS: PLATELET SUFFICIENCY NORMAL (NORMAL); POLYCHROMASIA SLIGHT; ROULEAUX SLIGHT
[2019-12-02 08:00] VITALS: BP 119/73
--- NOTE | 2019-12-02 09:26 | NUR ---
DRESSING CHANGED TO PATIENTS LEFT GRT TOE. PATIENT TOLERATED WELL.
[2019-12-02 12:00] VITALS: BP 129/70
[2019-12-02 16:00] VITALS: BP 128/74
--- NOTE | 2019-12-02 19:46 | NUR ---
PATIENT ASSISTED OFF THE BEDPAN WITH ASSISTANCE OF 2 RNS. SMALL BROWN BOWEL MOVEMENT IN BEDPAN. PATIENT DENIES OTHER NEEDS AT THIS TIME. RN WILL CONTINUE TO MONITOR
[2019-12-02 20:00] VITALS: BP 124/67
--- NOTE | 2019-12-02 20:00 | NUR ---
RN IN TO SEE PATIENT, DENIES COMPLAINTS OR NEEDS AT THIS TIME. 3 IVS TO LH,LFA,RFA, ALL INTACT. DOBBHOFF FEEDING TUBE INTACT TO R NARE-NEPRO INFUSING AT 40ML/HR. VITAL SIGNS OBTAINED AND ARE STABLE, SEE SCREEN. PATIENT ON BARIATRIC BED AND ENCOURAGED TO SHIFT WEIGHT AND TURN Q2 HOURS. PATIENT EXHIBITS MOIST COUGH WITH VERY MINIMAL SPUTUM PRODUCTION. PATIENT DENIES NEED TO BE SUCTIONED. CALL LIGHT IS WITHIN REACH OF THE PATIENT, AND PATIENT WAS ENCOURAGED TO CALL FOR ASSISTANCE IF NEEDED, RN WILL CONTINUE TO MONITOR
[2019-12-03] VITALS: BP 104/44
[2019-12-03 04:00] VITALS: BP 147/74
--- NOTE | 2019-12-03 04:38 | NUR ---
BED CHANGE AND BATH DONE AT THIS TIME. PATIENT TOLERATED WELL. ALSO HAD ONE LARGE LIQUID BROWN BM ON BEDPAN.
[2019-12-03 05:47] LABS: ALBUMIN 2.7 gm/dl (3.1-4.5); CREATININE 7.13 mg/dL (0.70-1.30); POTASSIUM 3.7 mmol/L (3.5-5.1); TOTAL PROTEIN 6.8 gm/dL (6.4-8.2)
[2019-12-03 06:07] LABS: HEMATOCRIT 28.6 % (42.0-52.0); MEAN CORPUSCULAR HGB 26.5 pg (27.0-31.0); MEAN CORPUSCULAR HGB CONC 30.1 g/dl (33.0-37.0); MEAN PLATELET VOLUME 11.6 fl (9.6-12.3); PLATELET COUNT AUTOMATED 242 10*3/uL (130-400); RED BLOOD COUNT 3.25 10*6/uL (4.50-5.90); RED CELL DISTRI WIDTH 15.9 % (0-14.5); WHITE BLOOD COUNT 6.9 10*3/uL (4.8-10.8)
[2019-12-03 07:00] LABS: BASOPHILS 3 % (0-1); TOTAL CELLS COUNTED 100 #CELLS
[2019-12-03 07:01] LABS: OVALOCYTES FEW; PLATELET SUFFICIENCY NORMAL (NORMAL); POLYCHROMASIA SLIGHT; ROULEAUX SLIGHT
[2019-12-03 08:00] VITALS: BP 148/79
[2019-12-03 11:54] VITALS: BP 130/64
--- NOTE | 2019-12-03 13:25 | NUR ---
DR WISE HERE AND SAW PATIENT AFTER REVIEWING CASE WITH STAFF..PATIENT GIVEN SIPS FO WATER WITHOUT STRAW THEN WITH STRAW WITH DR WISE & RN PRESENT..NO SIGNS OF ASPIRATION. PT ALLOWED TO HAVE CLEAR LIQUIDS IN LIMITED AMOUNTS UNTIL FULL EVALUATION BY SPEECH
--- NOTE | 2019-12-03 14:38 | NUR ---
PT. PLACED ON NC AT 3LM, SAT 95%. BIPAP DISCONTINUED. PT. TOLERATING WELL.
[2019-12-03 16:00] VITALS: BP 138/72
--- NOTE | 2019-12-03 16:57 | NUR ---
ATTEMPTED TO GET PATIENT TO TURN TO SIDE FOR A WHILE BUT HE DECLINED. AGREED TO SHIFT WEIGHT..HOB ELEVATED..DEMONSTRATED AGAIN USING PASSIVE ROM NEED TO MOVE LEGS & ARMS AND HOW IT WILL HELP HIM WITH GETTING MOVING TOMORROW WITH THERAPY...
--- NOTE | 2019-12-03 19:05 | NUR ---
PATIENT ASSISTED ON AND OFF THE BEDPAN, SMALL LIQUID BROWN BM. PATIENT DENIES OTHER ENEDS AT THIS TIME. RN WILL CONTINUE TO MONITOR
[2019-12-03 20:00] VITALS: BP 124/72
--- NOTE | 2019-12-03 21:05 | NUR ---
PATIENT AGAIN CALLED OUT FOR BEDPAN TO MOVE BOWELS. PATIENT HAD VERY SMALL LIQUID BROWN BM. PATIENT IS STILL REFUSING TO REPOSITION OFF BACK, RN PROVIDED EDUCATION ABOUT THE IMPORTANCE OF REPOSITIONING FREQUENTLY AND ENCOURAGED WEIGHT SHIFTS, TO WHICH THE PATIENT STATED THAT HE WOULD DO. CALL LIGHT WITHIN REACH. RN WILL CONTINUE TO MONITOR
--- NOTE | 2019-12-03 22:30 | NUR ---
SPOKE WITH PATIENTS MOTHER, UPDATED HER ON TOMORROWS EVENTS AND PLAN OF CAR FOR PATIENT. ANSWERED QUESTIONS, AND PROVIDED CALL BACK NUMBER.
[2019-12-04] VITALS: BP 109/52; BP 118/73
--- NOTE | 2019-12-04 02:36 | NUR ---
PATIENT REQUESTING TO NOT GET A BATH TONIGHT HE WOULD LIKE TO SLEEP. STATES HE IS TOO TIRED. RN WILL CONTINUE TO MONITOR
[2019-12-04 04:00] VITALS: BP 129/76
[2019-12-04 05:05] LABS: ALBUMIN 2.7 gm/dl (3.1-4.5); POTASSIUM 3.9 mmol/L (3.5-5.1)
[2019-12-04 05:08] LABS: CREATININE 8.19 mg/dL (0.70-1.30); TOTAL PROTEIN 6.5 gm/dL (6.4-8.2)
--- NOTE | 2019-12-04 05:20 | NUR ---
DRESSING CHANGED TO LEFT FOOT AREA PER DRS ORDERS. PATIENT TOLERATED WELL.
[2019-12-04 05:59] LABS: HEMATOCRIT 28.2 % (42.0-52.0); MEAN CELL VOLUME 88.1 fl (80.0-94.0); MEAN CORPUSCULAR HGB 26.6 pg (27.0-31.0); MEAN CORPUSCULAR HGB CONC 30.1 g/dl (33.0-37.0); MEAN PLATELET VOLUME 12.1 fl (9.6-12.3); PLATELET COUNT AUTOMATED 241 10*3/uL (130-400); RED CELL DISTRI WIDTH 15.9 % (0-14.5); WHITE BLOOD COUNT 7.1 10*3/uL (4.8-10.8)
--- NOTE | 2019-12-04 06:48 | NUR ---
Shift chart check completed.
[2019-12-04 06:55] LABS: BASOPHILS 2 % (0-1); PLATELET SUFFICIENCY NORMAL (NORMAL); POLYCHROMASIA SLIGHT; ROULEAUX SLIGHT; TOTAL CELLS COUNTED 100 #CELLS
[2019-12-04 06:56] LABS: OVALOCYTES FEW
--- NOTE | 2019-12-04 07:39 | NUR ---
HEMA DAMICO [id number] Please refer to the physician's history and physical for past medical history, comorbid conditions, and allergies. Diagnosis: ACUTE RESPIRATORY FAILURE WITHY HYPOXIA ACUTE Khadar Score: 13,MODERATE RISK WOUND DESCRIPTIONS: This nurse along with with Sole Houser RN evaluated patient for skin impairments. Wound Number: 1 Location of the wound: Left upper arm ecchymotic area noted. No open areas noted at time of assessment. No drainage noted at time of assessment. Wound Number: 2 Location of the wound: Left lower quadrant ecchymotic area noted. No open areas noted at time of assessment. No draiange noted at time of assessment. Wound Number: 3 Location of the wound: left medial aspect of foot Type of wound: DTI Size: 1.1cm x 2.5cm x <0.1cm Tunneling: none Undermining: none Sinus Tract: none Presence of Exudate: none Amount: None Color: purple Odor: None Periwound Skin Appearance: Normal Wound edges: intact blood filled blister Pain (associated with wound): none at time of assessment How does patient state this happened? pt unable to state how this happened Surface the patient is resting on: Rental SKIN PREVENTION RECOMMENDATION: 1. Pressure redistribution support surface as appropriate 2. Elevate heels 3. Remove boots/TEDS every shift and reapply 4. Head of bed 30 degrees as tolerated 5. Assess nutrition and hydration 6. Manage moisture 7. Avoid the use of containment devices while in bed 8. Use absorptive products on surfaces limit layers of linens on bed 9. Turn and reposition every 1-2 hours in bed and every 1 hour in chair as tolerated 10. Weight shifts every 15 minutes while up in chair 11. Offloading with pillows or device to keep heels elevated off bed 12. Monitor skin at least every shift 13. Inspect under medical devices twice a day WOUND TREATMENT RECOMMENDATIONS: D/C Stage 2 guidelines: Apply sureprep to left medial aspect of foot and cover with optifoam gentle every 2 days and prn for soiling Heel raiser pro boots to bilateral feet while in bed DTI guidelines: Apply sureprep to left medial aspect of foot and cover with optifoam gentle every 2 days and prn for soiling.
[2019-12-04 08:00] VITALS: BP 126/75
--- NOTE | 2019-12-04 09:08 | NUR ---
PEST TECHNICIAN SPOKE WITH [facility]. PRECERT HAS BEEN OBTAINED. PER [facility], THEY WOULD PREFER THE PATIENT BE TRANSPORTED AFTER 4PM TODAY. PEST TECHNICIAN INFORMED RN HOSPITALIST COORDINATOR MIREYA AND FOAM RUBBER MIXER.
--- NOTE | 2019-12-04 09:10 | NUR ---
Occupational therapy order received and chart reviewed. Per discussion with nursing in the ICCU, patient is currently receiving dialysis and returning between 12-1pm would be best for an evaluation. Will check back in the early afternoon for completion of an OT eval. Thank you. Latoya Danielson, OTR/L
--- NOTE | 2019-12-04 09:15 | NUR ---
PHYSICAL THERAPY Attempted to see pt for evaluation currently receiving dialysis will see later in the PM for assessment as appropriate. Katina Nuno PT
--- NOTE | 2019-12-04 09:16 | NUR ---
DR GRIMES ROUNDED - DIALYSIS IN PROGRESS
--- NOTE | 2019-12-04 09:22 | NUR ---
SPEECH PATHOLOGY Clinical swallowing evaluation completed as per orders to assess safety of oral feeding. Medical history includes acute respiratory failure with hypoxia, CKD- end state, oropharyngeal dysphagia, HTN, DM, colitis, CHF. Patient was intubated X13 days. Extubation occurred several days ago. He is fed by NG tube but has been taking sips of liquids and reportedly tolerating them well. For assessment this am he was alert and cooperative. He followed commands easily. Oral peripheral exam revealed natural teeth in good condition. Lingual/labial/buccal skills were WNL in terms of strength, ROM and coordination. He was able to volitionally swallow. His volitional cough was weak. Patient displayed generalized weakness and difficulty sitting upright higher than 60 degree angle. He was receiving O2 via NC at 4L and pulse ox was monitored throughout the encounter, remaining between 95-99. He was given sips of water via straw. Cough was observed on first presentation only. He was able to elicit a timely swallow with no wet vocal quality. Pureed consistency was tolerated well. He was not given solids at this time due to overall status. Recommend patient begin oral feeding with puree and thin liquids with implementation of safe swallow precautions such as upright positioning, small bites/sips, eating slowly and alternating consistencies. Recommend patient be monitored during meals to ensure safety. Follow up therapy is recommended to ensure safe tolerance of highest level diet with advancement as tolerated. Results and antoine. were shared with patient and his nurse and they verbalized understanding. Refer to report in [facility] for further information. Thank you for this referral. ADOLFO SHEARER MSCCC-WEIGHER AND GRADER
--- NOTE | 2019-12-04 09:29 | NUR ---
DR WISE HERE AND ROUNDING ON PATIENTS
--- NOTE | 2019-12-04 09:38 | NUR ---
[facility] REQUESTED UPDATES. BARN OPERATOR FAXED UPDATES. AGAIN, PATIENT IS ABLE TO BE TRANSPORTED AFTER 4PM TODAY.
--- NOTE | 2019-12-04 10:27 | NUR ---
Dr. Walton notified of wound care orders needed.
--- NOTE | 2019-12-04 11:05 | NUR ---
ACCOUNTING ASSISTANT SPOKE WITH THE PATIENT. ACCOUNTING ASSISTANT EXPLAINED THAT THIS ACCOUNTING ASSISTANT ATTEMPTED TO SEEK PLACEMENT AT [facility]. ACCOUNTING ASSISTANT EXPLAINED THAT [facility] IS ABLE TO ACCEPT HIM TODAY PATIENT IS AGREEABLE TO [facility]. DEPARTMENT DIRECTOR VENKATESH INFORMED.
[2019-12-04] MEDS ORDERED: KLOR-CON M2020 ME1 NG (11:59)
[2019-12-04] MEDS ORDERED: CALCIUM CARBON200 MG OGT (11:59)
[2019-12-04] MEDS ORDERED: Ipratropium Brom3 ML NEB (11:59)
[2019-12-04] MEDS ORDERED: LOSARTAN POTAS100 M1 PO (11:59)
[2019-12-04] MEDS ORDERED: NYSTOP60 GM T (11:59)
[2019-12-04] MEDS ORDERED: PANTOPRAZOLE SO40 MG PO (11:59)
[2019-12-04] MEDS ORDERED: METOPROLOL TART50 M1 OGT (11:59)
[2019-12-04] MEDS ORDERED: BUMEX2.5 MG/10 IV (11:59)
[2019-12-04] MEDS ORDERED: RISPERIDONE0.5 MG PO (11:59)
[2019-12-04] MEDS ORDERED: Humalog SQ (11:59)
[2019-12-04] MEDS ORDERED: Lantus SC (11:59)
[2019-12-04] MEDS ORDERED: Carafate1 GM NG (11:59)
[2019-12-04] MEDS ORDERED: ELIQUIS5 M1 PEG (11:59)
[2019-12-04 12:00] VITALS: BP 125/74
--- NOTE | 2019-12-04 13:15 | NUR ---
Occupational Therapy evaluation completed on ICCU with full evaluation to follow. Recommend occupational therapy per plan of care and SNF vs inpatient rehab upon discharge. Thank you for this referral. Latoya Danielson OTR/L
--- NOTE | 2019-12-04 13:15 | NUR ---
Physical Therapy evaluation completed ICCU with full evaluation to follow. Recommend physical therapy per plan of care and SNF vs Inpatient rehab upon discharge. Thank you for this referral. Katina Nuno PT
--- NOTE | 2019-12-04 13:21 | NUR ---
TOWER TRUCK DRIVER NOTIFIED OF PATIENT DISCHARGE. TOWER TRUCK DRIVER SPOKE WITH MAGALY WEBSTER, TOWER TRUCK DRIVER SPOKE WITH CESIA ESQUEDA AND ARRANGED 430PM TRANSPORT. TOWER TRUCK DRIVER NOTIFIED MAGALY WEBSTER, TOWER TRUCK DRIVER NOTIFIED PATIENTS MOM, AND [facility] OF TRANSPORT. TOWER TRUCK DRIVER WILL FAX DISCHARGE ORDERS TO
[2019-12-04 16:00] VITALS: BP 130/64
--- NOTE | 2019-12-04 16:47 | NUR ---
Discharge instructions reviewed with patient/family. Patient receptive and verbalizes understanding. Follow-up care arranged. Written instructions given to patient/family. INSTRUCTIONS TO AMBULANCE - [facility], CELL PHONE & CONTRACTS INTERN ALONG WITH [facility] SENT WITH AMBULANCE [facility]A AGUILLON
--- NOTE | 2019-12-04 17:02 | NUR ---
REPORT CALLED TO [facility]
== END 2019-12-04 18:09 | DRG 720 ==
LOC: ED 15:59 → ICCU 17:31 → EDHOLD 17:31 → 4NE 17:31 → ICCU 11-20 17:02 → 5E 12-02 10:39 → ICCU 12-02 10:49
PROVIDERS: Emergency Medicine; Family Medicine; Internal Medicine; Internal Medicine Critical Care Medicine; Internal Medicine Nephrology; Student in an Organized Health Care Education/Training Program; ADMIT Internal Medicine
PROC: 5A09357 Assistance with Respiratory Ventilation, Less than 24 Consecutive Hours, Continuous Positive Airway Pressure (ICD-10-PCS; 2019-11-15)
PROC: 5A1955Z Respiratory Ventilation, Greater than 96 Consecutive Hours (ICD-10-PCS; principal; 2019-11-16)
PROC: 0BH17EZ Insertion of Endotracheal Airway into Trachea, Via Natural or Artificial Opening (ICD-10-PCS; 2019-11-16)
PROC: 02HV33Z Insertion of Infusion Device into Superior Vena Cava, Percutaneous Approach (ICD-10-PCS; 2019-11-16)
PROC: 02HV33Z Insertion of Infusion Device into Superior Vena Cava, Percutaneous Approach (ICD-10-PCS; 2019-11-16)
PROC: B548ZZA Ultrasonography of Superior Vena Cava, Guidance (ICD-10-PCS; 2019-11-16)
PROC: B548ZZA Ultrasonography of Superior Vena Cava, Guidance (ICD-10-PCS; 2019-11-16)
PROC: 03HY32Z Insertion of Monitoring Device into Upper Artery, Percutaneous Approach (ICD-10-PCS; 2019-11-16)
PROC: 5A1D70Z Performance of Urinary Filtration, Intermittent, Less than 6 Hours Per Day (ICD-10-PCS; 2019-11-16)
PROC: 4A133B1 Monitoring of Arterial Pressure, Peripheral, Percutaneous Approach (ICD-10-PCS; 2019-11-16)
PROC: 4A133J1 Monitoring of Arterial Pulse, Peripheral, Percutaneous Approach (ICD-10-PCS; 2019-11-16)
PROC: 5A1D70Z Performance of Urinary Filtration, Intermittent, Less than 6 Hours Per Day (ICD-10-PCS; 2019-11-17)
PROC: 30233N1 Transfusion of Nonautologous Red Blood Cells into Peripheral Vein, Percutaneous Approach (ICD-10-PCS; 2019-11-17)
PROC: 5A1D70Z Performance of Urinary Filtration, Intermittent, Less than 6 Hours Per Day (ICD-10-PCS; 2019-11-18)
PROC: 5A1D70Z Performance of Urinary Filtration, Intermittent, Less than 6 Hours Per Day (ICD-10-PCS; 2019-11-20)
PROC: 0DJ08ZZ Inspection of Upper Intestinal Tract, Via Natural or Artificial Opening Endoscopic (ICD-10-PCS; 2019-11-22)
PROC: 5A1D70Z Performance of Urinary Filtration, Intermittent, Less than 6 Hours Per Day (ICD-10-PCS; 2019-11-22)
PROC: 5A1D70Z Performance of Urinary Filtration, Intermittent, Less than 6 Hours Per Day (ICD-10-PCS; 2019-11-24)
PROC: 5A1D70Z Performance of Urinary Filtration, Intermittent, Less than 6 Hours Per Day (ICD-10-PCS; 2019-11-25)
PROC: 0BC18ZZ Extirpation of Matter from Trachea, Via Natural or Artificial Opening Endoscopic (ICD-10-PCS; 2019-11-26)
PROC: 0BC98ZZ Extirpation of Matter from Lingula Bronchus, Via Natural or Artificial Opening Endoscopic (ICD-10-PCS; 2019-11-26)
PROC: 0BC48ZZ Extirpation of Matter from Right Upper Lobe Bronchus, Via Natural or Artificial Opening Endoscopic (ICD-10-PCS; 2019-11-26)
PROC: 0BC88ZZ Extirpation of Matter from Left Upper Lobe Bronchus, Via Natural or Artificial Opening Endoscopic (ICD-10-PCS; 2019-11-26)
PROC: 0BC58ZZ Extirpation of Matter from Right Middle Lobe Bronchus, Via Natural or Artificial Opening Endoscopic (ICD-10-PCS; 2019-11-26)
PROC: 0BC38ZZ Extirpation of Matter from Right Main Bronchus, Via Natural or Artificial Opening Endoscopic (ICD-10-PCS; 2019-11-26)
PROC: 0BC78ZZ Extirpation of Matter from Left Main Bronchus, Via Natural or Artificial Opening Endoscopic (ICD-10-PCS; 2019-11-26)
PROC: 0BC68ZZ Extirpation of Matter from Right Lower Lobe Bronchus, Via Natural or Artificial Opening Endoscopic (ICD-10-PCS; 2019-11-26)
PROC: 0BCB8ZZ Extirpation of Matter from Left Lower Lobe Bronchus, Via Natural or Artificial Opening Endoscopic (ICD-10-PCS; 2019-11-26)
PROC: 03HY32Z Insertion of Monitoring Device into Upper Artery, Percutaneous Approach (ICD-10-PCS; 2019-11-26)
PROC: 5A1D70Z Performance of Urinary Filtration, Intermittent, Less than 6 Hours Per Day (ICD-10-PCS; 2019-11-27)
PROC: 5A09357 Assistance with Respiratory Ventilation, Less than 24 Consecutive Hours, Continuous Positive Airway Pressure (ICD-10-PCS; 2019-11-29)
PROC: 5A1D70Z Performance of Urinary Filtration, Intermittent, Less than 6 Hours Per Day (ICD-10-PCS; 2019-11-29)
PROC: 5A09357 Assistance with Respiratory Ventilation, Less than 24 Consecutive Hours, Continuous Positive Airway Pressure (ICD-10-PCS; 2019-11-30)
PROC: 0JH63XZ Insertion of Tunneled Vascular Access Device into Chest Subcutaneous Tissue and Fascia, Percutaneous Approach (ICD-10-PCS; 2019-11-30)
PROC: 02HV33Z Insertion of Infusion Device into Superior Vena Cava, Percutaneous Approach (ICD-10-PCS; 2019-11-30)
PROC: 5A1D70Z Performance of Urinary Filtration, Intermittent, Less than 6 Hours Per Day (ICD-10-PCS; 2019-12-01)
PROC: 5A09357 Assistance with Respiratory Ventilation, Less than 24 Consecutive Hours, Continuous Positive Airway Pressure (ICD-10-PCS; 2019-12-02)
PROC: 5A09357 Assistance with Respiratory Ventilation, Less than 24 Consecutive Hours, Continuous Positive Airway Pressure (ICD-10-PCS; 2019-12-03)
PROC: 5A1D70Z Performance of Urinary Filtration, Intermittent, Less than 6 Hours Per Day (ICD-10-PCS; 2019-12-04)
DX: A41.9 Sepsis, unspecified organism (principal); N17.0 Acute kidney failure with tubular necrosis; J96.01 Acute respiratory failure with hypoxia; J18.9 Pneumonia, unspecified organism; E87.2 Acidosis; R65.20 Severe sepsis without septic shock; E43 Unspecified severe protein-calorie malnutrition; N18.4 Chronic kidney disease, stage 4 (severe); I50.9 Heart failure, unspecified; E87.5 Hyperkalemia; E87.8 Other disorders of electrolyte and fluid balance, not elsewhere classified; R74.8 Abnormal levels of other serum enzymes; R79.82 Elevated C-reactive protein (CRP); K76.0 Fatty (change of) liver, not elsewhere classified; E66.01 Morbid (severe) obesity due to excess calories; E78.1 Pure hyperglyceridemia; M10.9 Gout, unspecified; R13.12 Dysphagia, oropharyngeal phase; G47.33 Obstructive sleep apnea (adult) (pediatric); D50.0 Iron deficiency anemia secondary to blood loss (chronic); E83.39 Other disorders of phosphorus metabolism; K29.71 Gastritis, unspecified, with bleeding; K29.81 Duodenitis with bleeding; K57.90 Diverticulosis of intestine, part unspecified, without perforation or abscess without bleeding; D68.59 Other primary thrombophilia; B15.9 Hepatitis A without hepatic coma; E87.6 Hypokalemia; I13.0 Hypertensive heart and chronic kidney disease with heart failure and stage 1 through stage 4 chronic kidney disease, or unspecified chronic kidney disease; E11.65 Type 2 diabetes mellitus with hyperglycemia; E11.22 Type 2 diabetes mellitus with diabetic chronic kidney disease; Z87.891 Personal history of nicotine dependence; Z83.3 Family history of diabetes mellitus; Z81.8 Family history of other mental and behavioral disorders; Z79.899 Other long term (current) drug therapy; Z82.49 Family history of ischemic heart disease and other diseases of the circulatory system; Z78.1 Physical restraint status

== ENCOUNTER 2020-05-11 15:20 | Emergency (ER) | payer MEDICARE, MEDICAID ==
[~2020-05-11] VITALS: Ht 175.2 cm; Wt 181.4 kg
[~2020-05-11 15:20] MED LIST changes: +BUMEX2.5 MG/10 IV; +CALCIUM CARBON200 MG OGT; +Carafate1 GM NG; +ELIQUIS5 M1 PEG; +Ipratropium Brom3 ML NEB; +KLOR-CON M2020 ME1 NG; +LASIX40 MG PO; +LEVEMIR FL100 UNIT/1 SQ; +LOSARTAN POTAS100 M1 PO; +Lantus SC; +METOPROLOL TART50 M1 OGT; +NYSTOP60 GM T; +PANTOPRAZOLE SO40 MG PO; +RISPERIDONE0.5 MG PO; +TERAZOSIN HCL2 M1 PO
[2020-05-11] MEDS ORDERED: LEVOFLOXACIN500 MG PO ×3 (16:20→16:31)
== END 2020-05-11 16:26 | disposition home or self-care (01) ==
LOC: ED 15:20
DX: H66.91 Otitis media, unspecified, right ear (principal); Z79.899 Other long term (current) drug therapy

== ENCOUNTER 2020-11-10 21:50 | Emergency (ER) | payer MEDICARE, MEDICAID ==
[~2020-11-10] VITALS: Ht 175.2 cm; Wt 181.4 kg
[2020-11-10 23:10] LABS: BASO % 0.3 % (0.0-1.0); EOS % 0.1 % (1.0-4.0); HEMATOCRIT 28.7 % (42.0-52.0); LYMPH # 0.6 10*3/uL (1.3-4.4); LYMPH % 7.1 % (27.0-41.0); MEAN CELL VOLUME 91.4 fl (80.0-94.0); MEAN CORPUSCULAR HGB 29.6 pg (27.0-31.0); MEAN CORPUSCULAR HGB CONC 32.4 g/dl (33.0-37.0); MONO # 0.9 10*3/uL (0.1-1.0); MONO % 11.7 % (3.0-9.0); NEUT # 6.3 10*3/uL (2.3-7.9); NEUT % 80.2 % (47.0-73.0); PLATELET COUNT AUTOMATED 147 10*3/uL (130-400); RED BLOOD COUNT 3.14 10*6/uL (4.50-5.90); RED CELL DISTRI WIDTH 16.7 % (0-14.5); WHITE BLOOD COUNT 7.8 10*3/uL (4.8-10.8)
[2020-11-10 23:26] LABS: POTASSIUM 4.6 mmol/L (3.5-5.1); TOTAL PROTEIN 7.1 gm/dL (6.4-8.2)
== END 2020-11-11 04:51 | disposition home or self-care (01) ==
LOC: ED 21:50
PROVIDERS: Physician Assistant
DX: B34.9 Viral infection, unspecified (principal); Z20.822 Contact with and (suspected) exposure to COVID-19; R11.10 Vomiting, unspecified; E11.22 Type 2 diabetes mellitus with diabetic chronic kidney disease; I12.9 Hypertensive chronic kidney disease with stage 1 through stage 4 chronic kidney disease, or unspecified chronic kidney disease; N18.9 Chronic kidney disease, unspecified; Z79.2 Long term (current) use of antibiotics; Z79.899 Other long term (current) drug therapy; Z79.4 Long term (current) use of insulin; Z87.891 Personal history of nicotine dependence

== ENCOUNTER → 2021-03-13 | Outpatient (CLI) | payer MEDICARE | END | disposition home or self-care (01) | LOC: COVID19 15:10 | PROVIDERS: ATTEND Student in an Organized Health Care Education/Training Program | DX: Z11.52 Encounter for screening for COVID-19 (principal) ==

== ENCOUNTER 2021-07-13 07:24 | Emergency (ER) | payer MEDICARE ==
[~2021-07-13] VITALS: Wt 189.6 kg
[2021-07-13 08:17] LABS: EOS % 0.4 % (1.0-4.0); HEMATOCRIT 30.4 % (42.0-52.0); LYMPH # 0.8 10*3/uL (1.3-4.4); MEAN CELL VOLUME 91.6 fl (80.0-94.0); MEAN CORPUSCULAR HGB 30.7 pg (27.0-31.0); MEAN CORPUSCULAR HGB CONC 33.6 g/dl (33.0-37.0); MEAN PLATELET VOLUME 10.8 fl (9.6-12.3); MONO # 0.7 10*3/uL (0.1-1.0); MONO % 13.5 % (3.0-9.0); NEUT # 3.5 10*3/uL (2.3-7.9); NEUT % 69.7 % (47.0-73.0); PLATELET COUNT AUTOMATED 146 10*3/uL (130-400); RED BLOOD COUNT 3.32 10*6/uL (4.50-5.90); RED CELL DISTRI WIDTH 14.8 % (0-14.5); WHITE BLOOD COUNT 5.1 10*3/uL (4.8-10.8)
[2021-07-13 08:32] LABS: ALBUMIN 3.2 gm/dl (3.1-4.5); CREATININE 7.2 mg/dL (0.70-1.30); POTASSIUM 3.7 mmol/L (3.5-5.1); TOTAL PROTEIN 7.3 gm/dL (6.4-8.2)
== END 2021-07-13 09:19 | disposition home or self-care (01) ==
LOC: ED 07:24
PROVIDERS: Student in an Organized Health Care Education/Training Program
DX: U07.1 COVID-19 (principal); R04.2 Hemoptysis; Z87.891 Personal history of nicotine dependence

== ENCOUNTER → 2021-07-28 | Outpatient (CLI) | payer MEDICARE | LOC: RAD 10:35 | PROVIDERS: ATTEND Internal Medicine Nephrology | DX: R05.9 Cough, unspecified (principal); R06.02 Shortness of breath ==

== ENCOUNTER → 2021-10-24 | Outpatient (CLI) | payer MEDICARE ==
[2021-10-24 11:28] LABS: CREATININE 4.72 mg/dL (0.70-1.30); POTASSIUM 3.5 mmol/L (3.5-5.1)
[2021-10-24 11:30] LABS: TOTAL PROTEIN 8.5 gm/dL (6.4-8.2)
== END | disposition home or self-care (01) ==
LOC: LAB 10:16
PROVIDERS: ATTEND Internal Medicine
DX: E11.40 Type 2 diabetes mellitus with diabetic neuropathy, unspecified (principal); R53.1 Weakness

== ENCOUNTER → 2022-02-26 | Outpatient (CLI) | payer MEDICARE ==
[2022-02-26 09:23] LABS: CREATININE 8.43 mg/dL (0.70-1.30); POTASSIUM 4.7 mmol/L (3.5-5.1); TOTAL PROTEIN 7.9 gm/dL (6.4-8.2)
[2022-02-26 09:39] LABS: VITAMIN D, 25-HYDROXY 26.6 ng/mL (30-100)
== END | disposition home or self-care (01) ==
LOC: LAB 08:41
PROVIDERS: ATTEND Internal Medicine
DX: I10 Essential (primary) hypertension (principal); E11.40 Type 2 diabetes mellitus with diabetic neuropathy, unspecified; E55.9 Vitamin D deficiency, unspecified

== ENCOUNTER → 2022-09-28 | Outpatient (CLI) | payer MEDICARE ==
[2022-09-28 12:00] LABS: POTASSIUM 3.2 mmol/L (3.4-5.1); TOTAL PROTEIN 8.1 gm/dL (6.0-8.0)
== END | disposition home or self-care (01) ==
LOC: LAB 10:32
PROVIDERS: ATTEND Internal Medicine
DX: I12.9 Hypertensive chronic kidney disease with stage 1 through stage 4 chronic kidney disease, or unspecified chronic kidney disease (principal); E11.22 Type 2 diabetes mellitus with diabetic chronic kidney disease; N18.5 Chronic kidney disease, stage 5; E78.5 Hyperlipidemia, unspecified; N28.9 Disorder of kidney and ureter, unspecified; E55.9 Vitamin D deficiency, unspecified

== ENCOUNTER → 2022-12-01 | Outpatient (CLI) | payer MEDICARE ==
[2022-12-01 10:16] LABS: BILIRUBIN Negative (Negative); BLOOD Negative (Negative); CLARITY Clear (Clear); COLOR Yellow (Yellow); GLUCOSE Trace (Negative); KETONE Negative (Negative); LEUKO ESTERASE Negative (Negative); NITRITE Negative (Negative); SPECIFIC GRAVITY 1.015 (1.001-1.030); UROBILINOGEN 0.2 E.U./dl (0.0-1.0)
[2022-12-01 10:26] LABS: PH 8.5 (4.5-8.0)
== END | disposition home or self-care (01) ==
LOC: LAB 09:59
PROVIDERS: ATTEND Nurse Practitioner Family
DX: R82.90 Unspecified abnormal findings in urine (principal)

== ENCOUNTER 2022-12-06 10:51 | Emergency (ER) | payer MEDICARE ==
[~2022-12-06] VITALS: Ht 185.4 cm; Wt 169.6 kg
[2022-12-06 12:23] LABS: BASO % 0.4 % (0.0-1.0); EOS # 0.2 10*3/uL (0.0-0.4); HEMATOCRIT 34.8 % (42.0-52.0); LYMPH # 1.7 10*3/uL (1.3-4.4); MEAN CELL VOLUME 95.1 fl (80.0-94.0); MEAN CORPUSCULAR HGB 31.4 pg (27.0-31.0); MEAN PLATELET VOLUME 11.7 fl (9.6-12.3); MONO # 0.8 10*3/uL (0.1-1.0); MONO % 10.2 % (3.0-9.0); NEUT # 4.8 10*3/uL (2.3-7.9); PLATELET COUNT AUTOMATED 176 10*3/uL (130-400); RED BLOOD COUNT 3.66 10*6/uL (4.50-5.90); RED CELL DISTRI WIDTH 15.1 % (0-14.5); WHITE BLOOD COUNT 7.6 10*3/uL (4.8-10.8)
[2022-12-06 12:41] LABS: POTASSIUM 5.1 mmol/L (3.4-5.1); TOTAL PROTEIN 7.6 gm/dL (6.0-8.0)
[2022-12-06] MEDS ORDERED: AMOX-CLAV 875-1 EACH PO (13:06)
== END 2022-12-06 13:42 | disposition home or self-care (01) ==
LOC: ED 10:51
PROVIDERS: Nurse Practitioner Family
DX: K57.32 Diverticulitis of large intestine without perforation or abscess without bleeding (principal); E11.22 Type 2 diabetes mellitus with diabetic chronic kidney disease; I12.0 Hypertensive chronic kidney disease with stage 5 chronic kidney disease or end stage renal disease; M10.9 Gout, unspecified; N18.6 End stage renal disease; Z99.2 Dependence on renal dialysis; Z87.891 Personal history of nicotine dependence; F12.90 Cannabis use, unspecified, uncomplicated

== ENCOUNTER 2023-03-31 14:57 | Emergency (ER) | payer MEDICARE ==
[~2023-03-31] VITALS: Ht 175.2 cm; Wt 168.3 kg
[~2023-03-31 14:57] MED LIST changes: +AMOX-CLAV 875-1 EACH PO
[2023-03-31 18:51] LABS: BASO % 0.2 % (0.0-1.0); EOS # 0.1 10*3/uL (0.0-0.4); EOS % 0.8 % (1.0-4.0); HEMATOCRIT 31.5 % (42.0-52.0); LYMPH # 1.5 10*3/uL (1.3-4.4); LYMPH % 15.8 % (27.0-41.0); MEAN CELL VOLUME 94.6 fl (80.0-94.0); MEAN CORPUSCULAR HGB 32.1 pg (27.0-31.0); MEAN PLATELET VOLUME 11.4 fl (9.6-12.3); MONO # 1.1 10*3/uL (0.1-1.0); MONO % 11.3 % (3.0-9.0); NEUT # 6.9 10*3/uL (2.3-7.9); NEUT % 71.5 % (47.0-73.0); PLATELET COUNT AUTOMATED 145 10*3/uL (130-400); RED BLOOD COUNT 3.33 10*6/uL (4.50-5.90); RED CELL DISTRI WIDTH 15.2 % (0-14.5); WHITE BLOOD COUNT 9.7 10*3/uL (4.8-10.8)
[2023-03-31 19:21] LABS: POTASSIUM 3.9 mmol/L (3.4-5.1); TOTAL PROTEIN 7.2 gm/dL (6.0-8.0)
[2023-03-31] MEDS ORDERED: AMOX-CLAV 875-1 EACH PO (21:41)
== END 2023-03-31 21:53 | disposition home or self-care (01) ==
LOC: ED 14:57
PROVIDERS: Nurse Practitioner Family
DX: K57.32 Diverticulitis of large intestine without perforation or abscess without bleeding (principal); N18.9 Chronic kidney disease, unspecified; I50.9 Heart failure, unspecified; N18.6 End stage renal disease; E87.8 Other disorders of electrolyte and fluid balance, not elsewhere classified; E87.5 Hyperkalemia; E11.65 Type 2 diabetes mellitus with hyperglycemia; E11.22 Type 2 diabetes mellitus with diabetic chronic kidney disease; I13.2 Hypertensive heart and chronic kidney disease with heart failure and with stage 5 chronic kidney disease, or end stage renal disease; E11.40 Type 2 diabetes mellitus with diabetic neuropathy, unspecified; M10.9 Gout, unspecified; D64.9 Anemia, unspecified; Z87.891 Personal history of nicotine dependence; F12.90 Cannabis use, unspecified, uncomplicated

== ENCOUNTER → 2023-04-15 | Outpatient (CLI) | payer MEDICARE | END | disposition home or self-care (01) | LOC: LAB 13:36 | PROVIDERS: ATTEND Internal Medicine Critical Care Medicine | DX: R79.0 Abnormal level of blood mineral (principal) ==

== ENCOUNTER → 2023-09-06 | Outpatient (CLI) | payer MEDICARE | END | disposition home or self-care (01) | LOC: LAB 11:05 | PROVIDERS: ATTEND Internal Medicine | DX: E11.9 Type 2 diabetes mellitus without complications (principal); G62.9 Polyneuropathy, unspecified; E78.5 Hyperlipidemia, unspecified; N28.9 Disorder of kidney and ureter, unspecified ==

== ENCOUNTER 2023-09-16 09:37 | Emergency (ER) | payer MEDICARE ==
[~2023-09-16] VITALS: Ht 175.2 cm; Wt 163.3 kg
[2023-09-16] MEDS ORDERED: Ondansetron Hydrochloride 4 MG TAB PO ONE (10:10)
[2023-09-16] MEDS ORDERED: Acetaminophen/Hydrocodone 5 MG/325 MG TABLET PO ONE (10:10)
[2023-09-16 10:21] LABS: BASO % 0.1 % (0.0-1.0); EOS # 0.2 10*3/uL (0.0-0.4); EOS % 3.1 % (1.0-4.0); LYMPH # 1.5 10*3/uL (1.3-4.4); LYMPH % 21.6 % (27.0-41.0); MEAN CELL VOLUME 99.7 fl (80.0-94.0); MEAN CORPUSCULAR HGB 32.2 pg (27.0-31.0); MEAN CORPUSCULAR HGB CONC 32.3 g/dl (33.0-37.0); MEAN PLATELET VOLUME 10.8 fl (9.6-12.3); MONO # 0.6 10*3/uL (0.1-1.0); MONO % 8.9 % (3.0-9.0); NEUT # 4.6 10*3/uL (2.3-7.9); PLATELET COUNT AUTOMATED 170 10*3/uL (130-400); RED BLOOD COUNT 3.11 10*6/uL (4.50-5.90); RED CELL DISTRI WIDTH 14.9 % (0-14.5)
[2023-09-16 10:35] LABS: ACT PARTIAL THROMBO TIME 32.9 SECONDS (20.0-32.1)
[2023-09-16 10:47] LABS: POTASSIUM 4.3 mmol/L (3.4-5.1); TOTAL PROTEIN 7.4 gm/dL (6.0-8.0)
[2023-09-16] MEDS ORDERED: HYDROCODONE-AC1 EAC1 PO (11:45)
[2023-09-16] MEDS ORDERED: AMOX-CLAV 500-1 EACH PO (11:45)
[2023-09-16] MEDS ORDERED: ONDANSETRON4 MG SL (11:45)
[2023-09-16] MEDS ORDERED: Amoxicillin/Clavulanate Pota 500 MG TAB PO ONE (11:45)
== END 2023-09-16 12:00 | disposition home or self-care (01) ==
LOC: ED 09:37
PROVIDERS: Emergency Medicine
DX: K57.32 Diverticulitis of large intestine without perforation or abscess without bleeding (principal); Z87.891 Personal history of nicotine dependence; F12.90 Cannabis use, unspecified, uncomplicated; M10.9 Gout, unspecified; E11.22 Type 2 diabetes mellitus with diabetic chronic kidney disease; I12.9 Hypertensive chronic kidney disease with stage 1 through stage 4 chronic kidney disease, or unspecified chronic kidney disease; N18.4 Chronic kidney disease, stage 4 (severe)

== ENCOUNTER → 2023-11-18 | Outpatient (CLI) | payer MEDICARE ==
[~2023-11-18] MED LIST changes: +AMOX-CLAV 500-1 EACH PO; +HYDROCODONE-AC1 EAC1 PO; +ONDANSETRON4 MG SL
[2023-11-18 09:11] LABS: BASO % 0.3 % (0.0-1.0); EOS # 0.3 10*3/uL (0.0-0.4); EOS % 3.7 % (1.0-4.0); HEMATOCRIT 30.9 % (42.0-52.0); LYMPH # 1.7 10*3/uL (1.3-4.4); LYMPH % 23.9 % (27.0-41.0); MEAN CELL VOLUME 100.3 fl (80.0-94.0); MEAN CORPUSCULAR HGB 32.8 pg (27.0-31.0); MEAN CORPUSCULAR HGB CONC 32.7 g/dl (33.0-37.0); MEAN PLATELET VOLUME 11.5 fl (9.6-12.3); MONO # 0.6 10*3/uL (0.1-1.0); MONO % 8.6 % (3.0-9.0); NEUT # 4.6 10*3/uL (2.3-7.9); NEUT % 62.8 % (47.0-73.0); PLATELET COUNT AUTOMATED 191 10*3/uL (130-400); RED BLOOD COUNT 3.08 10*6/uL (4.50-5.90); RED CELL DISTRI WIDTH 14.6 % (0-14.5); WHITE BLOOD COUNT 7.2 10*3/uL (4.8-10.8)
[2023-11-18 09:32] LABS: POTASSIUM 3.9 mmol/L (3.4-5.1); TOTAL PROTEIN 7.2 gm/dL (6.0-8.0)
[2023-11-19 05:06] LABS: HBSAG Negative (Negative); HEP B CORE AB, IGM Negative (Negative); HEPATITIS C ANTIBODY Non Reactive (Non Reactive)
[2023-11-20 14:09] LABS: TB1 Ag VALUE 0.11 IU/mL (.)
== END | disposition home or self-care (01) ==
LOC: LAB 08:28
PROVIDERS: ATTEND Specialist
DX: L73.2 Hidradenitis suppurativa (principal); Z79.899 Other long term (current) drug therapy

== ENCOUNTER 2023-11-28 09:13 | Emergency (ER) | payer MEDICARE ==
[~2023-11-28] VITALS: Ht 175.2 cm; Wt 161.0 kg
[2023-11-28] MEDS ORDERED: TRULICITY1.5 MG/0.5 SC (09:28)
[2023-11-28] MEDS ORDERED: SULFACETAMIDE118 ML T (09:28)
[2023-11-28] MEDS ORDERED: Smz-Tmp Ds 800-160m (09:29)
[2023-11-28] MEDS ORDERED: BENZOYL PEROXI142 GM T (09:29)
[2023-11-28] MEDS ORDERED: TRIPHROCAPS SOFT1 MG PO (09:30)
[2023-11-28] MEDS ORDERED: OSTERA TABLET1 EACH PO (09:30)
[2023-11-28] MEDS ORDERED: METOPROLOL SUCC50 M1 PO (09:30)
[2023-11-28] MEDS ORDERED: FEBUXOSTAT40 MG PO (09:31)
[2023-11-28] MEDS ORDERED: ASPIRIN81 M1 PO (09:31)
[2023-11-28] MEDS ORDERED: MORPHINE Sulfate 2 MG/ML SYR IV ONE ×2 (09:50→12:05)
[2023-11-28] MEDS ORDERED: Ondansetron Hydrochloride 4 MG/2 ML VIAL IV ONE (09:50)
[2023-11-28] MEDS ORDERED: SODIUM CHLORIDE 0.9% 1,000 ML IV ONE (09:50)
[2023-11-28 10:10] LABS: BASO % 0.3 % (0.0-1.0); EOS # 0.1 10*3/uL (0.0-0.4); EOS % 1.5 % (1.0-4.0); HEMATOCRIT 28.6 % (42.0-52.0); LYMPH # 1.5 10*3/uL (1.3-4.4); LYMPH % 18.3 % (27.0-41.0); MEAN CELL VOLUME 97.9 fl (80.0-94.0); MEAN CORPUSCULAR HGB 32.5 pg (27.0-31.0); MEAN CORPUSCULAR HGB CONC 33.2 g/dl (33.0-37.0); MEAN PLATELET VOLUME 11.4 fl (9.6-12.3); MONO # 0.9 10*3/uL (0.1-1.0); MONO % 10.9 % (3.0-9.0); NEUT # 5.5 10*3/uL (2.3-7.9); NEUT % 68.7 % (47.0-73.0); PLATELET COUNT AUTOMATED 134 10*3/uL (130-400); RED BLOOD COUNT 2.92 10*6/uL (4.50-5.90); RED CELL DISTRI WIDTH 14.3 % (0-14.5)
[2023-11-28 10:36] LABS: POTASSIUM 4.5 mmol/L (3.4-5.1); TOTAL PROTEIN 6.9 gm/dL (6.0-8.0)
[2023-11-28] MEDS ORDERED: Piperacillin Sodium/Tazobact 50 ML IV ONE (12:00)
[2023-11-28] MEDS ORDERED: PERCOCET 5-3251 EACH PO (12:08)
[2023-11-28] MEDS ORDERED: METRONIDAZOLE500 M1 PO (12:08)
[2023-11-28] MEDS ORDERED: AMOX-CLAV 875-1 EACH PO (12:08)
== END 2023-11-28 13:10 | disposition home or self-care (01) ==
LOC: ED 09:13
PROVIDERS: Emergency Medicine
DX: K57.32 Diverticulitis of large intestine without perforation or abscess without bleeding (principal); R19.7 Diarrhea, unspecified; R11.0 Nausea; M10.9 Gout, unspecified; E11.22 Type 2 diabetes mellitus with diabetic chronic kidney disease; I12.9 Hypertensive chronic kidney disease with stage 1 through stage 4 chronic kidney disease, or unspecified chronic kidney disease; N18.4 Chronic kidney disease, stage 4 (severe); Z87.891 Personal history of nicotine dependence; F12.90 Cannabis use, unspecified, uncomplicated

== ENCOUNTER → 2024-04-27 | Outpatient (CLI) | payer MEDICARE ==
[~2024-04-27] MED LIST changes: +ASPIRIN81 M1 PO; +BENZOYL PEROXI142 GM T; +FEBUXOSTAT40 MG PO; +METOPROLOL SUCC50 M1 PO; +METRONIDAZOLE500 M1 PO; +OSTERA TABLET1 EACH PO; +PERCOCET 5-3251 EACH PO; +SULFACETAMIDE118 ML T; +Smz-Tmp Ds 800-160m; +TRIPHROCAPS SOFT1 MG PO; +TRULICITY1.5 MG/0.5 SC
[2024-04-27 10:14] LABS: BASO % 0.4 % (0.0-1.0); EOS # 0.3 10*3/uL (0.0-0.4); EOS % 3.4 % (1.0-4.0); HEMATOCRIT 34.5 % (42.0-52.0); LYMPH # 1.9 10*3/uL (1.3-4.4); LYMPH % 25.9 % (27.0-41.0); MEAN CELL VOLUME 98.3 fl (80.0-94.0); MEAN CORPUSCULAR HGB 32.5 pg (27.0-31.0); MEAN PLATELET VOLUME 11.1 fl (9.6-12.3); MONO # 0.8 10*3/uL (0.1-1.0); MONO % 11.3 % (3.0-9.0); NEUT # 4.3 10*3/uL (2.3-7.9); NEUT % 58.5 % (47.0-73.0); PLATELET COUNT AUTOMATED 177 10*3/uL (130-400); RED BLOOD COUNT 3.51 10*6/uL (4.50-5.90); RED CELL DISTRI WIDTH 14.6 % (0-14.5); WHITE BLOOD COUNT 7.3 10*3/uL (4.8-10.8)
[2024-04-27 10:39] LABS: FREE T4 1.2 ng/dl (0.89-1.76); POTASSIUM 4.9 mmol/L (3.4-5.1); TOTAL PROTEIN 7.6 gm/dL (6.0-8.0)
== END | disposition home or self-care (01) ==
LOC: LAB 09:56
PROVIDERS: ATTEND Internal Medicine
DX: E11.9 Type 2 diabetes mellitus without complications (principal); N18.5 Chronic kidney disease, stage 5; G25.81 Restless legs syndrome; E78.5 Hyperlipidemia, unspecified

== ENCOUNTER 2024-05-10 15:33 | Emergency (ER) | payer MEDICARE ==
[~2024-05-10] VITALS: Wt 158.8 kg
[2024-05-10] MEDS ORDERED: ALBUTEROL 8 GM INHALER INH ONE (16:15)
[2024-05-10] MEDS ORDERED: MEDROL DOSEPAK4 MG PO (16:48)
[2024-05-10] MEDS ORDERED: AVPAK AZITHROM250 M1 PO (16:48)
== END 2024-05-10 16:51 | disposition home or self-care (01) ==
LOC: ED 15:33
DX: J40 Bronchitis, not specified as acute or chronic (principal); Z79.4 Long term (current) use of insulin; Z79.82 Long term (current) use of aspirin; Z79.899 Other long term (current) drug therapy; Z87.891 Personal history of nicotine dependence

== ENCOUNTER 2024-06-25 23:11 | Emergency (ER) | payer MEDICARE ==
[~2024-06-25] VITALS: Ht 177.8 cm; Wt 145.1 kg
== END 2024-06-26 01:32 | disposition home or self-care (01) ==
LOC: ED 23:11
DX: R07.89 Other chest pain (principal); E11.22 Type 2 diabetes mellitus with diabetic chronic kidney disease; I12.9 Hypertensive chronic kidney disease with stage 1 through stage 4 chronic kidney disease, or unspecified chronic kidney disease; N18.4 Chronic kidney disease, stage 4 (severe); M10.9 Gout, unspecified; F12.90 Cannabis use, unspecified, uncomplicated; Z87.891 Personal history of nicotine dependence

== ENCOUNTER 2024-09-01 10:07 | Emergency (ER) | payer MEDICARE ==
[~2024-09-01] VITALS: Ht 175.2 cm; Wt 158.8 kg
[2024-09-01] MEDS ORDERED: Ondansetron Hydrochloride 4 MG/2 ML VIAL IV ONE (10:25)
[2024-09-01] MEDS ORDERED: MORPHINE Sulfate 2 MG/ML SYR IV ONE (10:25)
[2024-09-01 10:40] LABS: BASO % 0.3 % (0.0-1.0); EOS # 0.2 10*3/uL (0.0-0.4); HEMATOCRIT 32.5 % (42.0-52.0); MEAN CELL VOLUME 99.7 fl (80.0-94.0); MEAN CORPUSCULAR HGB 32.8 pg (27.0-31.0); MEAN CORPUSCULAR HGB CONC 32.9 g/dl (33.0-37.0); MEAN PLATELET VOLUME 11.2 fl (9.6-12.3); MONO % 10.7 % (3.0-9.0); NEUT # 6.1 10*3/uL (2.3-7.9); NEUT % 67.2 % (47.0-73.0); PLATELET COUNT AUTOMATED 210 10*3/uL (130-400); RED BLOOD COUNT 3.26 10*6/uL (4.50-5.90); RED CELL DISTRI WIDTH 15.9 % (0-14.5); WHITE BLOOD COUNT 9.1 10*3/uL (4.8-10.8)
[2024-09-01 10:59] LABS: POTASSIUM 3.6 mmol/L (3.4-5.1)
[2024-09-01] MEDS ORDERED: Amoxicillin/Clavulanate Pota 875 MG TAB PO ONE (12:25)
[2024-09-01] MEDS ORDERED: metroNIDAZOLE 500 MG TAB PO ONE (12:25)
[2024-09-01] MEDS ORDERED: Sulfamethoxazole/Trimethopri 1 TAB TAB PO ONE (12:25)
== END 2024-09-01 12:34 | disposition home or self-care (01) ==
LOC: ED 10:07
PROVIDERS: Emergency Medicine
DX: K57.32 Diverticulitis of large intestine without perforation or abscess without bleeding (principal); R19.7 Diarrhea, unspecified; I13.2 Hypertensive heart and chronic kidney disease with heart failure and with stage 5 chronic kidney disease, or end stage renal disease; E11.22 Type 2 diabetes mellitus with diabetic chronic kidney disease; N18.6 End stage renal disease; I50.9 Heart failure, unspecified; E78.5 Hyperlipidemia, unspecified; Z79.899 Other long term (current) drug therapy; Z79.4 Long term (current) use of insulin; Z79.82 Long term (current) use of aspirin; Z98.890 Other specified postprocedural states; Z87.891 Personal history of nicotine dependence

== ENCOUNTER 2024-09-24 11:41 | Inpatient (IN) | payer MEDICARE ==
[~2024-09-24] VITALS: Ht 175.3 cm; Wt 167.8 kg
[2024-09-24 11:46] VITALS: BP 167/83
[2024-09-24] MEDS ORDERED: Ondansetron Hydrochloride 4 MG/2 ML VIAL IV ONE (11:55)
[2024-09-24] MEDS ORDERED: MORPHINE Sulfate 2 MG/ML SYR IV ONE (11:55)
[2024-09-24 12:03] LABS: BASO % 0.4 % (0.0-1.0); EOS # 0.2 10*3/uL (0.0-0.4); EOS % 2.5 % (1.0-4.0); HEMATOCRIT 32.7 % (42.0-52.0); MEAN CELL VOLUME 99.7 fl (80.0-94.0); MEAN CORPUSCULAR HGB 32.3 pg (27.0-31.0); MEAN CORPUSCULAR HGB CONC 32.4 g/dl (33.0-37.0); MEAN PLATELET VOLUME 11.2 fl (9.6-12.3); MONO # 0.8 10*3/uL (0.1-1.0); NEUT # 4.8 10*3/uL (2.3-7.9); NEUT % 62.5 % (47.0-73.0); PLATELET COUNT AUTOMATED 150 10*3/uL (130-400); RED BLOOD COUNT 3.28 10*6/uL (4.50-5.90); RED CELL DISTRI WIDTH 15.5 % (0-14.5); WHITE BLOOD COUNT 7.7 10*3/uL (4.8-10.8)
[2024-09-24 12:19] LABS: POTASSIUM 4.8 mmol/L (3.4-5.1); TOTAL PROTEIN 7.4 gm/dL (6.0-8.0)
[2024-09-24] MEDS ORDERED: ACETAMINOPHEN 650 MG SUPP R PRN (14:30)
[2024-09-24] MEDS ORDERED: Ondansetron Hydrochloride 4 MG/2 ML VIAL IV PRN (14:30)
[2024-09-24] MEDS ORDERED: MORPHINE Sulfate 2 MG/ML SYR IV PRN (14:30)
[2024-09-24] MEDS ORDERED: SODIUM CHLORIDE 0.9% 1,000 ML IV SCH (14:40)
[2024-09-24] MEDS ORDERED: Piperacillin Sodium/Tazobact 0 ML IV SCH (14:40)
[2024-09-24] MEDS ORDERED: DEXTROSE 10 % IN WATER 250 ML IV PRN (15:15)
[2024-09-24] MEDS ORDERED: Piperacillin Sodium/Tazobact 2.25 GM in SODIUM CHLORIDE 0.9% 50 ML IV SCH (16:00)
[2024-09-24] MEDS ORDERED: INSULIN LISPRO 1 UNIT/0.01 ML SQ SCH (16:30)
[2024-09-24 17:32] VITALS: BP 117/54
[2024-09-24 19:42] VITALS: BP 134/65
[2024-09-24 20:40] VITALS: BP 142/78
[2024-09-24] MEDS ORDERED: HEPARIN SODIUM 5,000 UNIT/ML VIAL SC SCH (22:00)
[2024-09-25] VITALS: BP 125/63
[2024-09-25 03:42] LABS: BILIRUBIN Negative (Negative); BLOOD Negative (Negative); CLARITY Clear (Clear); COLOR Yellow (Yellow); GLUCOSE Negative (Negative); KETONE Negative (Negative); LEUKO ESTERASE Negative (Negative); NITRITE Negative (Negative); UROBILINOGEN 0.2 E.U./dl (0.0-1.0)
[2024-09-25 03:51] LABS: PH 8.5 (4.5-8.0)
[2024-09-25 03:53] LABS: WBC 0-2 wbc/hpf (0-5)
[2024-09-25] MEDS ORDERED: Pantoprazole Sodium 40 MG VIAL IV SCH (06:00)
[2024-09-25 08:00] VITALS: BP 133/65
[2024-09-25] MEDS ORDERED: BISACODYL 5 MG TAB PO ONE (09:30)
[2024-09-25] MEDS ORDERED: SODIUM CHLORIDE 23.4% 120 MEQ/30 ML VIAL IV SCH (09:50)
[2024-09-25] MEDS ORDERED: ALBUMIN 25% 50 ML IV PRN (09:50)
[2024-09-25] MEDS ORDERED: SODIUM CHLORIDE 0.9% 1,000 ML IV SCH (09:50)
[2024-09-25] MEDS ORDERED: MANNITOL 12.5 GM/50 ML VIAL IV SCH (09:50)
[2024-09-25] MEDS ORDERED: ASPIRIN ENTERIC COATED 81 MG TAB PO SCH (10:00)
[2024-09-25] MEDS ORDERED: METOPROLOL SUCCINATE XR 50 MG TAB PO SCH (10:00)
[2024-09-25 10:34] LABS: BASO % 0.2 % (0.0-1.0); EOS # 0.2 10*3/uL (0.0-0.4); EOS % 3.4 % (1.0-4.0); HEMATOCRIT 28.9 % (42.0-52.0); MEAN CELL VOLUME 98.3 fl (80.0-94.0); MEAN CORPUSCULAR HGB 32.7 pg (27.0-31.0); MEAN CORPUSCULAR HGB CONC 33.2 g/dl (33.0-37.0); MEAN PLATELET VOLUME 10.9 fl (9.6-12.3); MONO # 0.5 10*3/uL (0.1-1.0); MONO % 7.3 % (3.0-9.0); NEUT # 4.1 10*3/uL (2.3-7.9); NEUT % 65.4 % (47.0-73.0); PLATELET COUNT AUTOMATED 137 10*3/uL (130-400); RED BLOOD COUNT 2.94 10*6/uL (4.50-5.90); RED CELL DISTRI WIDTH 15.4 % (0-14.5); WHITE BLOOD COUNT 6.2 10*3/uL (4.8-10.8)
[2024-09-25 11:00] LABS: VITAMIN D, 25-HYDROXY 43.2 ng/mL (30-100)
[2024-09-25 11:07] LABS: POTASSIUM 5.3 mmol/L (3.4-5.1)
[2024-09-25] MEDS ORDERED: AMOX-CLAV 500-1 EACH PO (12:03)
[2024-09-25] MEDS ORDERED: HYDROCODONE-AC1 EAC1 PO (15:35)
[2024-09-25 16:00] VITALS: BP 109/72
[2024-09-25] MEDS ORDERED: Insulin Glargine, Recombinan 1 UNIT/0.01 ML SC SCH (22:00)
== END 2024-09-25 16:45 | disposition home or self-care (01) | DRG 391 ==
LOC: ED 11:41 → EDHOLD 13:57 → 4E 13:57
PROVIDERS: Physician Assistant Medical; Student in an Organized Health Care Education/Training Program; ADMIT Student in an Organized Health Care Education/Training Program; ATTEND Student in an Organized Health Care Education/Training Program
DX: K57.92 Diverticulitis of intestine, part unspecified, without perforation or abscess without bleeding (principal); N18.6 End stage renal disease; Z68.41 Body mass index [BMI] 40.0-44.9, adult; I12.0 Hypertensive chronic kidney disease with stage 5 chronic kidney disease or end stage renal disease; D53.1 Other megaloblastic anemias, not elsewhere classified; N28.1 Cyst of kidney, acquired; F12.10 Cannabis abuse, uncomplicated; Z99.2 Dependence on renal dialysis; E11.21 Type 2 diabetes mellitus with diabetic nephropathy; E78.1 Pure hyperglyceridemia; E55.9 Vitamin D deficiency, unspecified; E11.22 Type 2 diabetes mellitus with diabetic chronic kidney disease; R16.1 Splenomegaly, not elsewhere classified; R74.8 Abnormal levels of other serum enzymes; M10.10 Lead-induced gout, unspecified site; E66.01 Morbid (severe) obesity due to excess calories; Z87.891 Personal history of nicotine dependence; Z79.899 Other long term (current) drug therapy

== ENCOUNTER 2025-02-10 12:32 | Emergency (ER) | payer MEDICARE ==
[~2025-02-10] VITALS: Ht 175 cm; Wt 161.0 kg
[2025-02-10] MEDS ORDERED: IOHEXOL 300 MG/ML 100 ML VIAL IV ONE (13:10)
[2025-02-10] MEDS ORDERED: Ondansetron Hydrochloride 4 MG/2 ML VIAL IV ONE (13:10)
[2025-02-10 13:23] LABS: BASO # 0.0 10*3/uL (0.0-0.1); BASO % 0.1 % (0.0-1.0); EOS # 0.1 10*3/uL (0.0-0.4); EOS % 1.9 % (1.0-4.0); MEAN CELL VOLUME 100.3 fl (80.0-94.0); MEAN CORPUSCULAR HGB 32.8 pg (27.0-31.0); MEAN PLATELET VOLUME 10.7 fl (9.6-12.3); MONO # 0.6 10*3/uL (0.1-1.0); MONO % 8.9 % (3.0-9.0); NEUT # 4.4 10*3/uL (2.3-7.9); NEUT % 63.7 % (47.0-73.0); NUCLEATED RED BLOOD CELL 0.0 % (0.0-0.0); NUCLEATED RED BLOOD CELL 0.0 10*3/uL (0.0-0.0); PLATELET COUNT AUTOMATED 167 10*3/uL (130-400); RED CELL DISTRI WIDTH 15.9 % (0-14.5)
[2025-02-10 13:44] LABS: BUN 44.0 mg/dl (9-23); SGPT/ALT 24.0 U/L (5-49)
[2025-02-10] MEDS ORDERED: METRONIDAZOLE500 M1 PO (14:03)
[2025-02-10] MEDS ORDERED: CIPRO500 MG PO (14:03)
[2025-02-10] MEDS ORDERED: Ondansetron4 MG PO (14:03)
[2025-02-10] MEDS ORDERED: PERCOCET 5-3251 EACH PO (14:03)
[2025-02-10] MEDS ORDERED: Ciprofloxacin Hydrochloride 500 MG TAB PO ONE (14:05)
[2025-02-10] MEDS ORDERED: metroNIDAZOLE 500 MG TAB PO ONE (14:05)
== END 2025-02-10 14:09 | disposition home or self-care (01) ==
LOC: ED 12:32
PROVIDERS: Nurse Practitioner Family
DX: K57.32 Diverticulitis of large intestine without perforation or abscess without bleeding (principal); I12.0 Hypertensive chronic kidney disease with stage 5 chronic kidney disease or end stage renal disease; E11.22 Type 2 diabetes mellitus with diabetic chronic kidney disease; N18.6 End stage renal disease; R19.7 Diarrhea, unspecified; E78.1 Pure hyperglyceridemia; E66.01 Morbid (severe) obesity due to excess calories; Z79.899 Other long term (current) drug therapy; Z79.4 Long term (current) use of insulin; Z79.82 Long term (current) use of aspirin; Z99.2 Dependence on renal dialysis; Z87.891 Personal history of nicotine dependence; Z68.30 Body mass index [BMI] 30.0-30.9, adult

== ENCOUNTER 2025-02-22 09:23 | Inpatient (IN) | payer MEDICARE ==
[~2025-02-22] VITALS: Ht 175.3 cm; Wt 162.0 kg
[~2025-02-22 09:23] MED LIST changes: +Ondansetron4 MG PO
[2025-02-22 09:37] VITALS: BP 156/77
[2025-02-22] MEDS ORDERED: Ondansetron Hydrochloride 4 MG/2 ML VIAL IV ONE (09:50)
[2025-02-22] MEDS ORDERED: SODIUM CHLORIDE 0.9% 500 ML IV ONE (09:50)
[2025-02-22] MEDS ORDERED: NEURONTIN300 MG PO (09:51)
[2025-02-22] MEDS ORDERED: TESTOSTERONE1.25 GM TD (09:51)
[2025-02-22] MEDS ORDERED: ROPINIROLE HY0.25 MG PO (09:51)
[2025-02-22] MEDS ORDERED: HUMALOG100 UNIT/1 SC (09:52)
[2025-02-22] MEDS ORDERED: INSULIN LI100 UNIT/2 SQ (09:53)
[2025-02-22] MEDS ORDERED: METOPROLOL TART50 M1 PO (09:54)
[2025-02-22 10:06] LABS: BASO # 0.0 10*3/uL (0.0-0.1); BASO % 0.2 % (0.0-1.0); EOS # 0.1 10*3/uL (0.0-0.4); EOS % 2.3 % (1.0-4.0); MEAN CELL VOLUME 100.9 fl (80.0-94.0); MEAN CORPUSCULAR HGB 32.1 pg (27.0-31.0); MEAN PLATELET VOLUME 11.0 fl (9.6-12.3); MONO # 0.5 10*3/uL (0.1-1.0); MONO % 7.7 % (3.0-9.0); NEUT # 4.2 10*3/uL (2.3-7.9); NEUT % 68.6 % (47.0-73.0); NUCLEATED RED BLOOD CELL 0.0 % (0.0-0.0); NUCLEATED RED BLOOD CELL 0.0 10*3/uL (0.0-0.0); PLATELET COUNT AUTOMATED 159 10*3/uL (130-400); RED CELL DISTRI WIDTH 15.7 % (0-14.5)
[2025-02-22 10:26] LABS: BUN 38.0 mg/dl (9-23)
[2025-02-22] MEDS ORDERED: SODIUM CHLORIDE 0.9% 1,000 ML IV ONE (12:00)
[2025-02-22] MEDS ORDERED: DEXTROSE 50% 25 GM/50 ML VIAL IV PRN (12:45)
[2025-02-22] MEDS ORDERED: Ondansetron Hydrochloride 4 MG/2 ML VIAL IV PRN (12:45)
[2025-02-22] MEDS ORDERED: INSULIN LISPRO 1 UNIT/0.01 ML SQ SCH (16:30)
[2025-02-22] MEDS ORDERED: GABAPENTIN 300 MG CAP PO SCH (22:00)
[2025-02-22] MEDS ORDERED: HEPARIN SODIUM 5,000 UNIT/ML VIAL SC SCH (22:00)
[2025-02-22] MEDS ORDERED: Insulin Glargine, Recombinan 1 UNIT/0.01 ML SC SCH (22:00)
[2025-02-22 22:07] VITALS: BP 161/89
[2025-02-23] VITALS: BP 152/81
[2025-02-23 07:04] LABS: BASO # 0.0 10*3/uL (0.0-0.1); BASO % 0.3 % (0.0-1.0); EOS # 0.2 10*3/uL (0.0-0.4); EOS % 3.4 % (1.0-4.0); MEAN CELL VOLUME 101.6 fl (80.0-94.0); MEAN CORPUSCULAR HGB 32.6 pg (27.0-31.0); MEAN PLATELET VOLUME 11.2 fl (9.6-12.3); MONO # 0.7 10*3/uL (0.1-1.0); MONO % 9.8 % (3.0-9.0); NEUT # 4.3 10*3/uL (2.3-7.9); NEUT % 63.2 % (47.0-73.0); NUCLEATED RED BLOOD CELL 0.0 % (0.0-0.0); NUCLEATED RED BLOOD CELL 0.0 10*3/uL (0.0-0.0); PLATELET COUNT AUTOMATED 174 10*3/uL (130-400); RED CELL DISTRI WIDTH 15.9 % (0-14.5)
[2025-02-23 07:24] LABS: ACT PARTIAL THROMBO TIME 27.2 SECONDS (20.0-32.1)
[2025-02-23 07:32] LABS: BUN 45.0 mg/dl (9-23); LDL CHOLESTEROL 68.0 mg/dL (9-159); SGPT/ALT 29.0 U/L (5-49)
[2025-02-23 08:00] VITALS: BP 141/79
[2025-02-23] MEDS ORDERED: ASPIRIN ENTERIC COATED 81 MG TAB PO SCH (10:00)
[2025-02-23] MEDS ORDERED: FEBUXOSTAT 40 MG PO SCH (10:00)
[2025-02-23 12:00] VITALS: BP 150/83
[2025-02-23] MEDS ORDERED: MANNITOL 12.5 GM/50 ML VIAL IV SCH (12:50)
[2025-02-23] MEDS ORDERED: HEPARIN SODIUM 10,000 UN/10 ML VIAL IV SCH (12:50)
[2025-02-23] MEDS ORDERED: ALBUMIN 25% 50 ML IV PRN (12:50)
[2025-02-23] MEDS ORDERED: SODIUM CHLORIDE 0.9% 1,000 ML IV SCH (12:50)
[2025-02-23] MEDS ORDERED: HEPARIN SODIUM 5,000 UNIT/ML VIAL IV SCH (12:50)
[2025-02-23] MEDS ORDERED: SODIUM CHLORIDE 23.4% 120 MEQ/30 ML VIAL IV SCH (12:50)
[2025-02-23 16:00] VITALS: BP 149/71
[2025-02-23 20:00] VITALS: BP 139/76
[2025-02-23] MEDS ORDERED: GABAPENTIN 300 MG CAP PO SCH (22:00)
[2025-02-23] MEDS ORDERED: ACETAMINOPHEN 325 MG TAB PO PRN (22:50)
[2025-02-24] VITALS: BP 138/76
[2025-02-24 07:07] LABS: BASO # 0.0 10*3/uL (0.0-0.1); BASO % 0.2 % (0.0-1.0); EOS # 0.2 10*3/uL (0.0-0.4); EOS % 2.3 % (1.0-4.0); MEAN CELL VOLUME 100.0 fl (80.0-94.0); MEAN CORPUSCULAR HGB 31.9 pg (27.0-31.0); MEAN PLATELET VOLUME 11.1 fl (9.6-12.3); MONO # 0.9 10*3/uL (0.1-1.0); MONO % 10.1 % (3.0-9.0); NEUT # 6.2 10*3/uL (2.3-7.9); NEUT % 69.9 % (47.0-73.0); NUCLEATED RED BLOOD CELL 0.0 % (0.0-0.0); NUCLEATED RED BLOOD CELL 0.0 10*3/uL (0.0-0.0); PLATELET COUNT AUTOMATED 181 10*3/uL (130-400); RED CELL DISTRI WIDTH 16.1 % (0-14.5)
[2025-02-24 07:38] LABS: BUN 26.0 mg/dl (9-23)
[2025-02-24 08:00] VITALS: BP 155/80
[2025-02-24] MEDS ORDERED: SODIUM CHLORIDE 0.9% 1,000 ML BAG IV ONE (08:40)
[2025-02-24] MEDS ORDERED: Gelatin Sponge 1 EACH SPON T ONE (08:40)
[2025-02-24 12:00] VITALS: BP 154/74
[2025-02-24] MEDS ORDERED: AURYXIA210 MG PO (12:16)
[2025-02-24 16:00] VITALS: BP 141/71
[2025-02-24 20:00] VITALS: BP 155/85
[2025-02-25] VITALS: BP 162/82
[2025-02-25 06:29] LABS: BASO # 0.0 10*3/uL (0.0-0.1); BASO % 0.2 % (0.0-1.0); EOS # 0.2 10*3/uL (0.0-0.4); EOS % 1.8 % (1.0-4.0); MEAN CELL VOLUME 100.6 fl (80.0-94.0); MEAN CORPUSCULAR HGB 32.3 pg (27.0-31.0); MEAN PLATELET VOLUME 11.1 fl (9.6-12.3); MONO # 1.0 10*3/uL (0.1-1.0); MONO % 9.8 % (3.0-9.0); NEUT # 7.7 10*3/uL (2.3-7.9); NEUT % 73.8 % (47.0-73.0); NUCLEATED RED BLOOD CELL 0.0 % (0.0-0.0); NUCLEATED RED BLOOD CELL 0.0 10*3/uL (0.0-0.0); PLATELET COUNT AUTOMATED 168 10*3/uL (130-400); RED CELL DISTRI WIDTH 16.1 % (0-14.5)
[2025-02-25 06:52] LABS: BUN 41.0 mg/dl (9-23)
[2025-02-25 08:00] VITALS: BP 170/86
[2025-02-25 12:00] VITALS: BP 156/78
[2025-02-25] MEDS ORDERED: AMOX-CLAV 875-1 EACH PO (12:58)
[2025-02-25] MEDS ORDERED: HYDROCODONE-AC1 EAC1 PO (13:23)
[2025-02-25] MEDS ORDERED: Piperacillin Sodium/Tazobact 2.25 GM in SODIUM CHLORIDE 0.9% 50 ML IV SCH (14:00)
[2025-02-26] MEDS ORDERED: NEURONTIN100 MG PO (14:19)
[2025-02-26] MEDS ORDERED: NEPHRO VITAMIN0.8 MG PO (15:06)
[2025-02-26] MEDS ORDERED: FISH OIL 1,2001 EACH PO (15:07)
[2025-02-26] MEDS ORDERED: LANTUS100 UNIT/1 SC (15:09)
[2025-02-26] MEDS ORDERED: MELATONIN10 M2 PO (15:11)
== END 2025-02-25 13:07 | disposition home or self-care (01) | DRG 391 ==
LOC: ED 09:23 → EDHOLD 12:11 → 5E 12:11
PROVIDERS: Emergency Medicine; ADMIT Internal Medicine; ATTEND Internal Medicine
PROC: 5A1D70Z Performance of Urinary Filtration, Intermittent, Less than 6 Hours Per Day (ICD-10-PCS; principal; 2025-02-23)
DX: K57.92 Diverticulitis of intestine, part unspecified, without perforation or abscess without bleeding (principal); N18.6 End stage renal disease; Z68.41 Body mass index [BMI] 40.0-44.9, adult; I12.0 Hypertensive chronic kidney disease with stage 5 chronic kidney disease or end stage renal disease; D53.9 Nutritional anemia, unspecified; F12.90 Cannabis use, unspecified, uncomplicated; F10.90 Alcohol use, unspecified, uncomplicated; Y90.9 Presence of alcohol in blood, level not specified; E11.22 Type 2 diabetes mellitus with diabetic chronic kidney disease; E11.65 Type 2 diabetes mellitus with hyperglycemia; R79.9 Abnormal finding of blood chemistry, unspecified; M10.9 Gout, unspecified; E66.01 Morbid (severe) obesity due to excess calories; E11.40 Type 2 diabetes mellitus with diabetic neuropathy, unspecified; Z99.2 Dependence on renal dialysis; Z78.9 Other specified health status; Z87.891 Personal history of nicotine dependence; Z79.899 Other long term (current) drug therapy

== ENCOUNTER 2025-02-26 09:39 | Inpatient (IN) | payer MEDICARE ==
[~2025-02-26] VITALS: Ht 175.2 cm; Wt 171.6 kg
[~2025-02-26 09:39] MED LIST changes: +AURYXIA210 MG PO; +HUMALOG100 UNIT/1 SC; +INSULIN LI100 UNIT/2 SQ; +METOPROLOL TART50 M1 PO; +NEURONTIN300 MG PO; +ROPINIROLE HY0.25 MG PO; +TESTOSTERONE1.25 GM TD
[2025-02-26 09:47] VITALS: BP 114/69
[2025-02-26 10:02] LABS: BASO # 0.0 10*3/uL (0.0-0.1); BASO % 0.1 % (0.0-1.0); EOS # 0.0 10*3/uL (0.0-0.4); EOS % 0.0 % (1.0-4.0); MEAN CELL VOLUME 98.0 fl (80.0-94.0); MEAN CORPUSCULAR HGB 32.4 pg (27.0-31.0); MEAN PLATELET VOLUME 11.1 fl (9.6-12.3); MONO # 1.4 10*3/uL (0.1-1.0); MONO % 8.2 % (3.0-9.0); NEUT # 13.7 10*3/uL (2.3-7.9); NEUT % 83.0 % (47.0-73.0); NUCLEATED RED BLOOD CELL 0.0 % (0.0-0.0); NUCLEATED RED BLOOD CELL 0.0 10*3/uL (0.0-0.0); PLATELET COUNT AUTOMATED 225 10*3/uL (130-400); RED CELL DISTRI WIDTH 16.1 % (0-14.5)
[2025-02-26] MEDS ORDERED: SODIUM CHLORIDE 0.9% 100 ML BAG IV ONE (10:05)
[2025-02-26] MEDS ORDERED: IOHEXOL 350 MG/ML 100 ML VIAL IV ONE ×2 (10:05→13:46)
[2025-02-26 10:11] LABS: ACT PARTIAL THROMBO TIME 32.6 SECONDS (20.0-32.1)
[2025-02-26] MEDS ORDERED: SODIUM CHLORIDE 0.9% 1,000 ML IV SCH (10:15)
[2025-02-26 10:21] LABS: BUN 26.0 mg/dl (9-23)
[2025-02-26 10:24] LABS: FREE T4 1.24 ng/dl (0.89-1.76)
[2025-02-26] MEDS ORDERED: Midazolam Hydrochloride 2 MG/2 ML VIAL IV ONE (13:25)
[2025-02-26] MEDS ORDERED: AZITHROMYCIN 250 ML IV ONE (13:25)
[2025-02-26] MEDS ORDERED: SODIUM CHLORIDE 0.9% 100 ML IV ONE (13:46)
[2025-02-26] MEDS ORDERED: ACETAMINOPHEN 325 MG TAB PO PRN (14:00)
[2025-02-26] MEDS ORDERED: Acetaminophen/Hydrocodone 5 MG/325 MG TABLET PO PRN (14:00)
[2025-02-26] MEDS ORDERED: ACETAMINOPHEN 650 MG SUPP R PRN (14:00)
[2025-02-26] MEDS ORDERED: BISACODYL 10 MG SUPP R PRN (14:00)
[2025-02-26] MEDS ORDERED: TEMAZEPAM 15 MG CAP PO PRN (14:00)
[2025-02-26] MEDS ORDERED: Ondansetron Hydrochloride 4 MG/2 ML VIAL IV PRN (14:00)
[2025-02-26] MEDS ORDERED: BISACODYL 5 MG TAB PO PRN (14:00)
[2025-02-26] MEDS ORDERED: HEPARIN SODIUM 250 ML IV SCH (14:05)
[2025-02-26 14:06] VITALS: BP 101/64
[2025-02-26] MEDS ORDERED: NEURONTIN100 MG PO (14:19)
[2025-02-26 15:00] VITALS: BP 148/100
[2025-02-26] MEDS ORDERED: NEPHRO VITAMIN0.8 MG PO (15:06)
[2025-02-26] MEDS ORDERED: FISH OIL 1,2001 EACH PO (15:07)
[2025-02-26] MEDS ORDERED: LANTUS100 UNIT/1 SC (15:09)
[2025-02-26] MEDS ORDERED: MELATONIN10 M2 PO (15:11)
[2025-02-26] MEDS ORDERED: Albuterol Sulf/Ipratropium 3 ML VIAL NEB SCH (15:25)
[2025-02-26] MEDS ORDERED: VANCOMYCIN/WATER FOR INJ (PEG) 300 ML IV SCH (16:00)
[2025-02-26] MEDS ORDERED: DEXTROSE 50% 25 GM/50 ML VIAL IV PRN (17:45)
[2025-02-26 20:00] VITALS: BP 126/89
[2025-02-26] MEDS ORDERED: GUAIFENESIN 600 MG TAB ER PO SCH (22:00)
[2025-02-26] MEDS ORDERED: INSULIN LISPRO 1 UNIT/0.01 ML SQ SCH (22:00)
[2025-02-26] MEDS ORDERED: Insulin Glargine, Recombinan 1 UNIT/0.01 ML SC SCH (22:00)
[2025-02-27 02:41] LABS: BASO # 0.0 10*3/uL (0.0-0.1); BASO % 0.2 % (0.0-1.0); EOS # 0.1 10*3/uL (0.0-0.4); EOS % 0.8 % (1.0-4.0); MEAN CORPUSCULAR HGB 31.9 pg (27.0-31.0); MEAN PLATELET VOLUME 10.9 fl (9.6-12.3); MONO # 1.4 10*3/uL (0.1-1.0); MONO % 11.6 % (3.0-9.0); NEUT # 9.3 10*3/uL (2.3-7.9); NEUT % 76.0 % (47.0-73.0); NUCLEATED RED BLOOD CELL 0.0 % (0.0-0.0); NUCLEATED RED BLOOD CELL 0.0 10*3/uL (0.0-0.0); PLATELET COUNT AUTOMATED 186 10*3/uL (130-400); RED CELL DISTRI WIDTH 16.6 % (0-14.5)
[2025-02-27 03:03] LABS: BUN 39.0 mg/dl (9-23); SGPT/ALT 38.0 U/L (5-49)
[2025-02-27 03:09] LABS: MEAN CELL VOLUME 101.7 fl (80.0-94.0)
[2025-02-27] MEDS ORDERED: NOREPINEPHRINE BITARTRATE/D5W 250 ML IV SCH (03:40)
[2025-02-27 04:00] VITALS: BP 103/63
[2025-02-27] MEDS ORDERED: MED. FROM HOME 1 EACH EA PO SCH (07:00)
[2025-02-27 08:00] VITALS: BP 120/66
[2025-02-27] MEDS ORDERED: GABAPENTIN 300 MG CAP PO SCH (10:00)
[2025-02-27] MEDS ORDERED: ATORVASTATIN CALCIUM 40 MG TABLET PO SCH (10:00)
[2025-02-27] MEDS ORDERED: ASPIRIN ENTERIC COATED 81 MG TAB PO SCH (10:00)
[2025-02-27] MEDS ORDERED: Vitamin B Complex and Vitami4 1 TAB TAB PO SCH (10:00)
[2025-02-27 12:00] VITALS: BP 140/82
[2025-02-27] MEDS ORDERED: Technetium Tc 99M Tetrofosmi 0.23 MG KIT IJ SCH (12:05)
[2025-02-27] MEDS ORDERED: AZITHROMYCIN 250 ML IV SCH (15:00)
[2025-02-27 16:00] VITALS: BP 165/94
[2025-02-27 19:54] VITALS: BP 162/84
[2025-02-27] MEDS ORDERED: diazePAM 10 MG/2 ML SYR IV ONE (20:00)
[2025-02-28] VITALS: BP 161/78
[2025-02-28] MEDS ORDERED: Regadenoson 0.4 MG/5 ML SYR IV ONE (05:57)
[2025-02-28 06:35] LABS: BASO # 0.0 10*3/uL (0.0-0.1); BASO % 0.2 % (0.0-1.0); EOS # 0.1 10*3/uL (0.0-0.4); EOS % 1.6 % (1.0-4.0); MEAN CELL VOLUME 101.4 fl (80.0-94.0); MEAN CORPUSCULAR HGB 31.9 pg (27.0-31.0); MEAN PLATELET VOLUME 12.0 fl (9.6-12.3); MONO # 0.8 10*3/uL (0.1-1.0); MONO % 10.5 % (3.0-9.0); NEUT # 5.5 10*3/uL (2.3-7.9); NEUT % 68.4 % (47.0-73.0); NUCLEATED RED BLOOD CELL 0.0 % (0.0-0.0); NUCLEATED RED BLOOD CELL 0.0 10*3/uL (0.0-0.0); PLATELET COUNT AUTOMATED 192 10*3/uL (130-400); RED CELL DISTRI WIDTH 16.4 % (0-14.5)
[2025-02-28 06:37] LABS: BUN 58.0 mg/dl (9-23)
[2025-02-28 08:00] VITALS: BP 172/85
[2025-02-28] MEDS ORDERED: EPOETIN ALFA-EPBX 10,000 UNIT/ML VIAL IV SCH (11:05)
[2025-02-28] MEDS ORDERED: LORazepam 1 MG TAB PO ONE (14:55)
[2025-02-28 16:00] VITALS: BP 176/87
[2025-02-28] MEDS ORDERED: Vancomycin Hydrochloride 1,000 MG in SODIUM CHLORIDE 0.9% 250 ML IV SCH (16:00)
[2025-02-28 20:00] VITALS: BP 168/60
[2025-02-28] MEDS ORDERED: Insulin Glargine, Recombinan 1 UNIT/0.01 ML SC SCH (22:00)
[2025-03-01] VITALS: BP 135/91
[2025-03-01 06:07] LABS: BASO # 0.0 10*3/uL (0.0-0.1); BASO % 0.5 % (0.0-1.0); EOS # 0.2 10*3/uL (0.0-0.4); EOS % 2.4 % (1.0-4.0); MEAN CELL VOLUME 100.7 fl (80.0-94.0); MEAN CORPUSCULAR HGB 31.8 pg (27.0-31.0); MEAN PLATELET VOLUME 11.6 fl (9.6-12.3); MONO # 0.9 10*3/uL (0.1-1.0); MONO % 10.6 % (3.0-9.0); NEUT # 5.8 10*3/uL (2.3-7.9); NEUT % 71.7 % (47.0-73.0); NUCLEATED RED BLOOD CELL 0.0 % (0.0-0.0); NUCLEATED RED BLOOD CELL 0.0 10*3/uL (0.0-0.0); PLATELET COUNT AUTOMATED 196 10*3/uL (130-400); RED CELL DISTRI WIDTH 16.3 % (0-14.5)
[2025-03-01 07:05] LABS: BUN 39.0 mg/dl (9-23)
[2025-03-01 08:00] VITALS: BP 135/84
[2025-03-01] MEDS ORDERED: HEPARIN SODIUM 10,000 UN/10 ML VIAL IV ONE (08:31)
[2025-03-01] MEDS ORDERED: SODIUM CHLORIDE 0.9% 1,000 ML BAG IV ONE (08:31)
[2025-03-01 11:55] VITALS: BP 133/79
[2025-03-01 16:00] VITALS: BP 135/79
[2025-03-01] MEDS ORDERED: RIVAROXABAN 15 MG TAB PO SCH (18:00)
[2025-03-01 20:00] VITALS: BP 175/78
[2025-03-02] VITALS: BP 155/87
[2025-03-02 06:02] LABS: BASO # 0.0 10*3/uL (0.0-0.1); BASO % 0.4 % (0.0-1.0); EOS # 0.4 10*3/uL (0.0-0.4); EOS % 5.4 % (1.0-4.0); MEAN CELL VOLUME 99.3 fl (80.0-94.0); MEAN CORPUSCULAR HGB 31.0 pg (27.0-31.0); MEAN PLATELET VOLUME 11.6 fl (9.6-12.3); MONO # 0.7 10*3/uL (0.1-1.0); MONO % 8.8 % (3.0-9.0); NEUT # 5.3 10*3/uL (2.3-7.9); NEUT % 68.3 % (47.0-73.0); NUCLEATED RED BLOOD CELL 0.0 % (0.0-0.0); NUCLEATED RED BLOOD CELL 0.0 10*3/uL (0.0-0.0); PLATELET COUNT AUTOMATED 200 10*3/uL (130-400); RED CELL DISTRI WIDTH 16.2 % (0-14.5)
[2025-03-02 06:25] LABS: BUN 57.0 mg/dl (9-23)
[2025-03-02] MEDS ORDERED: HEPARIN SODIUM 10,000 UN/10 ML VIAL IV ONE (08:59)
[2025-03-02] MEDS ORDERED: SODIUM CHLORIDE 0.9% 1,000 ML BAG IV ONE (08:59)
[2025-03-02] MEDS ORDERED: Gelatin Sponge 1 EACH SPON T ONE (08:59)
[2025-03-02] MEDS ORDERED: Oxymetazoline Hydrochloride Nasal 15 ml bottle NAS SCH (10:35)
[2025-03-02] MEDS ORDERED: SODIUM CHLORIDE Nasal 44 ml bottle NAS PRN (14:40)
[2025-03-02 16:00] VITALS: BP 145/75
[2025-03-02 20:00] VITALS: BP 134/69
[2025-03-02] MEDS ORDERED: LORazepam 1 MG TAB PO ONE (21:40)
[2025-03-02] MEDS ORDERED: APIXABAN 5 MG TAB PO SCH (22:00)
[2025-03-02 23:44] VITALS: BP 155/76
[2025-03-03 06:06] LABS: BASO # 0.0 10*3/uL (0.0-0.1); BASO % 0.6 % (0.0-1.0); EOS # 0.5 10*3/uL (0.0-0.4); EOS % 7.0 % (1.0-4.0); MEAN CELL VOLUME 100.7 fl (80.0-94.0); MEAN CORPUSCULAR HGB 31.8 pg (27.0-31.0); MEAN PLATELET VOLUME 11.0 fl (9.6-12.3); MONO # 0.6 10*3/uL (0.1-1.0); MONO % 9.5 % (3.0-9.0); NEUT # 4.1 10*3/uL (2.3-7.9); NEUT % 61.0 % (47.0-73.0); NUCLEATED RED BLOOD CELL 0.0 % (0.0-0.0); NUCLEATED RED BLOOD CELL 0.0 10*3/uL (0.0-0.0); PLATELET COUNT AUTOMATED 217 10*3/uL (130-400); RED CELL DISTRI WIDTH 16.0 % (0-14.5)
[2025-03-03 06:16] LABS: BUN 32.0 mg/dl (9-23)
[2025-03-03 08:00] VITALS: BP 154/87
[2025-03-03 12:00] VITALS: BP 134/75
[2025-03-03] MEDS ORDERED: ATORVASTATIN CA40 M1 PO (14:41)
[2025-03-03] MEDS ORDERED: ELIQUIS5 M1 PO (14:41)
[2025-03-03] MEDS ORDERED: ZITHROMAX250 MG PO (14:48)
== END 2025-03-03 15:13 | disposition home or self-care (01) | DRG 871 ==
LOC: ED 09:39 → EDHOLD 13:31 → ICCU 13:31 → 5E 13:31 → ICCU 14:13 → 5E 02-27 14:46
PROVIDERS: Internal Medicine; Student in an Organized Health Care Education/Training Program; ADMIT Internal Medicine; ATTEND Internal Medicine
PROC: 05HB33Z Insertion of Infusion Device into Right Basilic Vein, Percutaneous Approach (ICD-10-PCS; principal; 2025-02-26)
PROC: B54MZZA Ultrasonography of Right Upper Extremity Veins, Guidance (ICD-10-PCS; 2025-02-26)
PROC: 5A1D70Z Performance of Urinary Filtration, Intermittent, Less than 6 Hours Per Day (ICD-10-PCS; 2025-02-28)
PROC: 5A1D70Z Performance of Urinary Filtration, Intermittent, Less than 6 Hours Per Day (ICD-10-PCS; 2025-03-02)
DX: A41.9 Sepsis, unspecified organism (principal); I21.4 Non-ST elevation (NSTEMI) myocardial infarction; J96.01 Acute respiratory failure with hypoxia; N18.6 End stage renal disease; J15.69 Pneumonia due to other Gram-negative bacteria; E87.20 Acidosis, unspecified; E87.1 Hypo-osmolality and hyponatremia; Z68.43 Body mass index [BMI] 50.0-59.9, adult; I12.0 Hypertensive chronic kidney disease with stage 5 chronic kidney disease or end stage renal disease; K57.32 Diverticulitis of large intestine without perforation or abscess without bleeding; Z20.822 Contact with and (suspected) exposure to COVID-19; D53.9 Nutritional anemia, unspecified; R65.20 Severe sepsis without septic shock; E66.01 Morbid (severe) obesity due to excess calories; G47.33 Obstructive sleep apnea (adult) (pediatric); E11.22 Type 2 diabetes mellitus with diabetic chronic kidney disease; E11.21 Type 2 diabetes mellitus with diabetic nephropathy; I48.91 Unspecified atrial fibrillation; E11.65 Type 2 diabetes mellitus with hyperglycemia; E87.5 Hyperkalemia; E83.51 Hypocalcemia; E83.39 Other disorders of phosphorus metabolism; M89.8X8 Other specified disorders of bone, other site; Z79.899 Other long term (current) drug therapy; Z79.01 Long term (current) use of anticoagulants; Z79.2 Long term (current) use of antibiotics; Z99.2 Dependence on renal dialysis; Z79.82 Long term (current) use of aspirin; Z79.4 Long term (current) use of insulin; Z83.3 Family history of diabetes mellitus; Z82.49 Family history of ischemic heart disease and other diseases of the circulatory system